=== PATIENT | male | born 1955 | race Caucasian/White ===

== ENCOUNTER 2023-01-23 11:22 | Outpatient (CLI) | payer MEDICARE, SELFPAY ==
[2023-01-23 12:06] LABS: Anion Gap 4 mmol/L (8-16); Blood Urea Nitrogen 26 mg/dL (9-20); Calcium 8.8 mg/dL (8.4-10.2); Carbon Dioxide 31 mmol/L (22-30); Chloride 101 mmol/L (98-107); Estimated Glomerular Filt Rate > 60; Glucose 110 mg/dL (65-110); Potassium 3.6 mmol/L (3.4-5.0); Sodium 136 mmol/L (137-145)
== END 2023-01-23 11:23 | disposition home or self-care (01) ==
PROVIDERS: Anesthesiology; Visit Provider Surgery
DX: Z01.812 Encounter for preprocedural laboratory examination (principal); K40.20 Bilateral inguinal hernia, without obstruction or gangrene, not specified as recurrent; Z79.899 Other long term (current) drug therapy
CPT/HCPCS: 36415; 80048; 86850; 86900; 86901

== ENCOUNTER 2023-01-31 00:18 | Day surgery (SDC) | payer MEDICARE, SELFPAY ==
[2023-01-22 14:54] VITALS: BMI 27.6
--- NOTE | 2023-01-22 15:13 | PC.NURSE ---
PRE-OP INSTRUCTIONS, PLEASE READ CAREFULLY Report to the Outpatient Waiting Room, entrance under the green pavilion located off [facility], at time _1030_ on date _01/31/23_. Planned Procedure Time: _1230_. Time changes happen often and if your time is changed the preop area will call you the afternoon before. - You and your visitor will be asked to self-screen and do not enter if you have any COVID symptoms. - A mask is optional within the hospital at this time. Patients may have clear liquids (water, carbonated beverages, clear teas, apple juice) until 3 hours prior to surgery (0930 AM) with a maximum of 20 ounces. - No food from midnight until time of surgery Take the following medications with a SIP of water the morning of surgery: _AMLODIPINE, TRELEGY INHALER, & FLONASE, PROAIR INHALER IF NEEDED_ DO NOT STOP ANY OF YOUR OTHER PRESCRIPTION MEDICATIONS PRIOR TO SURGERY ?EXCEPT THE FOLLOWING Medications to discontinue _MELOXICAM PER DR. STERN'S INSTRUCTIONS_ Medications to discontinue per ANESTHESIA - _MULTIVITAMIN, AREDS 3 DAYS PRIOR TO SURGERY, Date to take last dose 01/27/23_ Please no make-up, nail turkish, hairspray, perfume, deodorant, or body powder the day of surgery. No jewelry (including any body piercings) or valuables the day of surgery, leave them at home. Please take a shower or bath the night before, or the morning of, surgery with an antibacterial soap. Wear comfortable, loose fitting clothing. Children are encouraged to wear pajamas. - Jewelry must be removed prior to entering the operating room. Rings and piercings that are not removed may be cut off. - The hospital will not accept responsibility for valuables. - Please leave all valuables, including medications, at home the day of surgery. If you are going home after surgery, a licensed substitute bus driver must drive you home. - NO public transportation without another adult if you receive anesthesia. - We recommend that an adult stay with you for 24 hours following discharge. - We also recommend that you do not drive, make important decision, drink alcoholic beverages, or take any drugs that were not prescribed by your health care provider for at least 24 hours after your discharge time. Follow any additional instructions given to you from your surgeon. [facility] AM OF SURGERY If you or anyone in your household have experienced Covid symptoms in the past week, please notify your surgeon or the nurse liaison at the phone number below for possible testing. Telephone instructions given to _PATIENT_and asked if any additional questions and then verbalized understanding. Patient advised to call surgeon office or pre surgery nurse liaison [phone] if any additional questions.
[2023-01-31] VITALS (9 sets, daily range): BP systolic 146–173; BP diastolic 64–95; PULSE 73–85; RESP 12–20; TEMP 36.7–36.9; O2SAT 85–100
--- NOTE | 2023-01-31 13:41 | ECG_ITS ---
Measurements Intervals [place] Rate: 61 P: 61 [place]: 200 QRS: -9 QRSD: 91 T: 22 QT: 431 QTc: 436 Interpretive Statements SINUS RHYTHM NORMAL ELECTROCARDIOGRAM NO PREVIOUS ECG AVAILABLE FOR COMPARISON Electronically Signed On 01-31-2023 15:42:50 CDT by Nialy Lopez M.D.
[2023-01-31] MEDS: ACETAMINOPHEN 500 MG TABLET 1000 MG PO (14:00)
--- NOTE | 2023-01-31 14:01 | WPDANESEPPF ---
Anes - Initial Pre Proc Eval Procedure: Operation Date: 01/31/23 12:30 Proposed Procedures p Robotic Laparoscopic Bilateral Inguinal Hernia Repair - Edenilson Scherer MD Date/Time: 01/31/23 14:01 Surgeon: Edenilson Scherer MD Pre Op Diagnosis: recurrent left ing hernia and right ing hernia Patient Data Age: 67 Gender: M Height: 1.97 m Weight: 106.81 kg Allergies Allergy/AdvReac Type Severity Reaction Status Date / Time adhesive tape AdvReac SKIN Verified 01/31/23 14:06 IRRITATION Home Medications Medication Instructions Recorded Confirmed Type albuterol sulfate 90 mcg/actuation 1 inh inhalation Q4-6H PRN Wheezing 01/13/23 01/22/23 History breath activated powder inhaler,sensor (Proair Digihaler) amlodipine 2.5 mg tablet 2.5 mg PO DAILY 01/13/23 01/22/23 History fluticasone fur. 100 mcg-umeclid 1 inh inhalation DAILY 01/13/23 01/22/23 History 62.5 mcg-vilant 25 mcg inhalat.powder (Trelegy Ellipta) hydrochlorothiazide 12.5 mg tablet 12.5 mg PO DAILY 01/13/23 01/22/23 History loratadine 10 mg tablet 10 mg PO DAILY PRN SEASONAL 01/13/23 01/22/23 History ALLERGIES multivitamin 1 tablet PO DAILY 01/13/23 01/22/23 History olmesartan 40 mg tablet 40 mg PO DAILY 01/13/23 01/22/23 History omeprazole 40 mg capsule,delayed 40 mg PO DAILY PRN ACID REFLEX 01/13/23 01/22/23 History release vitamins A,C,P-xqwg-hsagol 4,296 1 cap PO BID 01/13/23 01/22/23 History mcg-226 mg-90 mg capsule (PreserVision AREDS) fluticasone propionate 50 1 spray intranasal DAILY 01/22/23 01/22/23 History mcg/actuation nasal spray,suspension (Flonase Allergy Relief) meloxicam 15 mg tablet 15 mg PO DAILY PRN Pain 01/22/23 01/22/23 History Patient hx anesthesia problems: none Family hx anesthesia problems: none Results Review: All pre-operative results and documents have been reviewed as part of the pre-operative evaluation. [facility] Past Medical History Medical History (Updated 01/13/23 @ 11:11 by Khalida Hall) Asthma GERD (gastroesophageal reflux disease) Hypertension Kidney stones Surgical History Surgical History History of eye surgery History of hernia repair inguinal History of knee surgery Family History Family History Other Diabetes mellitus Hypertension Social History Social History Smoking status: Never smoker Second hand tobacco smoke exposure: No Alcohol intake: current Alcohol use details: 3-4/MONTH Substance use: never Substance use type: does not use Living arrangements: other Additional living arrangements comments: PT LIVES WITH KI RINCON Spiritual care concerns: No Anes - Eval Final PreProcedure Day of Procedure 01/31/23 14:01 Patient weight: overweight Heart: regular rate and rhythm Lungs: clear to auscultation Airway: Mallampati scale class II Neurological: alert and oriented Last oral intake: >/= 8 hours ASA classification: III Emergent: no Anesthetic plan: proceed Anesthesia type and monitoring: general ETT and standard monitoring Results Review: All pre-operative results and documents have been reviewed as part of the pre-operative evaluation. Informed Consent: The patient's anesthetic plan and its attendant risks and benefits were discussed with the patient/family/POA. Questions were solicited and answers provided to the satisfaction of the patient/family/POA.
[2023-01-31] MEDS: KETOROLAC 15 MG/ML VIAL (*BKC) IV PUSH (15:00)
--- NOTE | 2023-01-31 15:50 | WPDHPUPDATE1 ---
History and Physical Update Update Date/Time: 01/31/23 15:50 History and Physical has been reviewed, including an updated exam of the patient. There are NO changes in the patient's condition. Risks, benefits, and alternatives have been discussed and questions answered. Patient agrees to proceed with procedure.
[2023-01-31] MEDS: ceFAZolin 2 GM/D5W 50 ML 2 GM/50 ML BAG IVPB (16:16)
[2023-01-31] MEDS: BUPIVACAINE/EPINEPHRINE 0.25% 10 ML VIAL 30 ML INFILTRATE (17:13)
[2023-01-31] MEDS: LACTATED RINGERS 1,000 ML 30 ML IV CONT ×2 (18:44)
--- NOTE | 2023-01-31 18:46 | W.PM.PROC2 ---
Procedure Note - Detailed Date of Procedure 01/31/23 Pre-op Diagnosis recurrent left ing hernia and right ing hernia Post-op Diagnosis Same Procedure Performed Robotic laparoscopic repair recurrent left inguinal hernia, robotic laparoscopic repair right inguinal hernia Surgeon Edenilson Scherer MD Identity Management Consultant Dionisio TRIPP Anesthesia General and MAC (0.5% Marcaine with epinephrine) Indications Patient is a 67-year-old man who has a history of a previous inguinal hernia repair, he thinks on the left side. He was noticing left groin pain and a bulge. But by the time he saw me in the office he was actually having pretty considerable right groin pain as well. Examination showed a large recurrent left inguinal hernia as well as a right inguinal hernia. He is taken to surgery now for robotic laparoscopic repair of recurrent left inguinal hernia and robotic repair of right inguinal hernia Findings The left inguinal hernia was a large indirect hernia. The right inguinal hernia actually had both a direct and an indirect hernia. Neither hernia had significant suggestion of previous repair but that is not too surprising as the previous repair was done open. Description of Procedure Patient was taken to surgery and induced into general anesthesia. The abdomen is prepped and draped. Trocars were placed about 20 cm cephalad to the pubis. Local anesthetic was infiltrated into the skin and the deeper subcutaneous and muscle prior to placement of each of the trocars. The initial trocar was placed using a 5 mm optical trocar in direct visualization. It was placed just to the right of midline. After we were intraperitoneal, we insufflated. Under direct visualization a right-sided 8 mm robotic trocar was then placed. Similarly an 8 mm left-sided robotic trocar was placed. Finally the 5 mm port was exchanged for an 8 mm robotic trocar as well. We then brought the robot into the field. The camera was docked and targeted. To the side arms were docked and instruments were placed. The surgeon went to the console. The surgery was started on the right inguinal region which clearly had more than 1 hernia. A peritoneal flap was created laterally. Dissection was carried out staying very close to the peritoneum on the lateral aspect. As we dissected to the inferior epigastric vessels, the dissection plane was a bit more superficial staying close to the rectus muscle. We dissected down to the urinary bladder and pubis. I then went back to the lateral dissection and continued that to below the pectinate line. I then went to the medial aspect and found a very large direct hernia. This was dissected and eventually reduced completely. Some fatty tissue in the femoral canal was likewise reduced. We continued dissection at least 2 cm posterior to the pubis. I then went lateral to the cord structures and dissected the indirect hernia free on the lateral aspect. I was then able to reduce the indirect hernia and carefully separate the hernia sac from the cord structures. Transversalis fascia attached to the hernia sac was carefully divided in the anterior aspect. There was essentially no bleeding. Visualization was excellent. Eventually the hernia sac was dissected completely free. We then continued the dissection and freed the peritoneum from the cord structures and well below the pectinate line and at least 2 cm below the pubis. The dissection was also continued over to the left rectus muscle which was exposed. I then turned my attention to the patient's left side. Similarly a peritoneal flap was started laterally and the dissection proceeded medially. The flap was dissected very close to the peritoneum laterally and deeper closer to the rectus muscle medially. The left side had a very large indirect hernia but only 1 hernia. I did not see any evidence of a direct or femoral hernia. After dissecting down and connecting to the pubis from the right-sided dissection, I then e
--- NOTE | 2023-01-31 19:13 | SUR.PHASEI ---
1909 - left eye tissue swollen. BARBER Rolle aware. stated that Dr. Scherer and Dr. Tilley aware as well.
[2023-01-31] MEDS: fentaNYL CITRATE INJ (*CRX) 100 MCG/2 ML VIAL 25 MCG IV PUSH (19:21)
[2023-01-31] MEDS: oxyCODONE HCL (*CRX) 5 MG TAB IR PO (19:51)
== END 2023-01-31 20:44 | disposition home or self-care (01) ==
PROVIDERS: Visit Provider Surgery
PROC: 8E0Y4CZ Robotic Assisted Procedure of Lower Extremity, Percutaneous Endoscopic Approach (ICD-10-PCS; CPT 49650; principal; 2023-01-31 12:30)
DX: K40.91 Unilateral inguinal hernia, without obstruction or gangrene, recurrent (principal); K40.90 Unilateral inguinal hernia, without obstruction or gangrene, not specified as recurrent; J45.909 Unspecified asthma, uncomplicated; I10 Essential (primary) hypertension; K21.9 Gastro-esophageal reflux disease without esophagitis; Z79.51 Long term (current) use of inhaled steroids
CPT/HCPCS: 49651; 49650; S2900; 36415; 80048; 86850; 86900; 86901; 93005; A9270; C1781; J0690; J1100; J1885; J2250; J2405; J2704; J2710; J3010; J7120

== ENCOUNTER 2023-02-17 11:16 | Outpatient (CLI) | payer MEDICARE, SELFPAY ==
--- NOTE | ~2023-02-17 | US_ITS ---
EXAMINATION: US soft tissue groin LT DATE: 02/17/2023 11:33 INDICATION: Evaluate seroma vs recurrent LIH . TECHNIQUE: Grayscale and Doppler ultrasound images of the left groin were obtained. COMPARISON: None. FINDINGS: The area of clinical concern was sonographically interrogated revealing a 2 x 2.5 cm inguin al hernia, containing mobile bowel. No other solid or cystic mass. No abnormal fluid collection. IMPRESSION: No evidence of seroma. Recurrent bowel containing inguinal hernia. Reviewed, dictated and finalized at location K.
== END 2023-02-17 11:17 ==
LOC: MICIMG 11:17
PROVIDERS: PCP Surgery; Visit Provider Surgery
DX: K40.91 Unilateral inguinal hernia, without obstruction or gangrene, recurrent (principal)
CPT/HCPCS: 76882

== ENCOUNTER 2023-02-24 12:21 | Outpatient (CLI) | payer MEDICARE, SELFPAY | END 2023-02-24 12:22 | disposition home or self-care (01) | PROVIDERS: Visit Provider Surgery | DX: Z01.818 Encounter for other preprocedural examination (principal); K40.91 Unilateral inguinal hernia, without obstruction or gangrene, recurrent | CPT/HCPCS: 36415; 86850; 86900; 86901 ==

== ENCOUNTER 2023-02-27 01:51 | Day surgery (SDC) | payer MEDICARE, SELFPAY ==
[2023-02-21 15:14] VITALS: BMI 26.4
--- NOTE | 2023-02-21 15:20 | PC.NURSE ---
PRE-OP INSTRUCTIONS, PLEASE READ CAREFULLY Report to the Outpatient Waiting Room, entrance under the green pavilion located off [facility], at time _1000_ on date _02/27/23_. Planned Procedure Time: _1200_. Time changes happen often and if your time is changed the preop area will call you the afternoon before. - You and your visitor will be asked to self-screen and do not enter if you have any COVID symptoms. - A mask is optional within the hospital at this time. Patients may have clear liquids (water, carbonated beverages, clear teas, apple juice) until 3 hours prior to surgery (0900 AM) with a maximum of 20 ounces. - No food from midnight until time of surgery Take the following medications with a SIP of water the morning of surgery: _AMLODIPINE, TRELEGY INHALER, & NASAL SPRAY, PROAIR INHALER IF NEEDED_ DO NOT STOP ANY OF YOUR OTHER PRESCRIPTION MEDICATIONS PRIOR TO SURGERY ?EXCEPT THE FOLLOWING Medications to discontinue per ANESTHESIA - _MULTIVITAMIN, AREDS 3 DAYS PRIOR TO SURGERY, Date to take last dose 02/23/23_ Please no make-up, nail uruguayan, hairspray, perfume, deodorant, or body powder the day of surgery. No jewelry (including any body piercings) or valuables the day of surgery, leave them at home. Please take a shower or bath the night before, or the morning of, surgery with an antibacterial soap. Wear comfortable, loose fitting clothing. - Jewelry must be removed prior to entering the operating room. Rings and piercings that are not removed may be cut off. - The hospital will not accept responsibility for valuables. - Please leave all valuables, including medications, at home the day of surgery. If you are going home after surgery, a licensed driver sales must drive you home. - NO public transportation without another adult if you receive anesthesia. - We recommend that an adult stay with you for 24 hours following discharge. - We also recommend that you do not drive, make important decision, drink alcoholic beverages, or take any drugs that were not prescribed by your health care provider for at least 24 hours after your discharge time. Follow any additional instructions given to you from your surgeon. If you or anyone in your household have experienced Covid symptoms in the past week, please notify your surgeon or the nurse liaison at the phone number below for possible testing. Telephone instructions given to _PATIENT_and asked if any additional questions and then verbalized understanding. Patient advised to call surgeon office or pre surgery nurse liaison [phone] if any additional questions.
[2023-02-27] MEDS: KETOROLAC 15 MG/ML VIAL (*BKC) IV PUSH (11:05)
[2023-02-27] MEDS: ACETAMINOPHEN 500 MG TABLET 1000 MG PO (11:05)
[2023-02-27 11:10] VITALS: BP 132/79; PULSE 56; RESP 14; TEMP 36.3; O2SAT 100
--- NOTE | 2023-02-27 11:31 | WPDANESEPPF ---
Anes - Initial Pre Proc Eval Procedure: Operation Date: 02/27/23 12:00 Proposed Procedures p Robotic Repair of Recurrent Left Inguinal Hernia - Edenilson Scherer MD Date/Time: 02/27/23 11:31 Surgeon: Edenilson Scherer MD Pre Op Diagnosis: recurrent left inguinal hernia Patient Data Age: 67 Gender: M Height: 1.97 m Weight: 101.5 kg Last Vital Signs Temp 97.3 F L 02/27/23 11:10 Pulse 56 L 02/27/23 11:10 Resp 14 02/27/23 11:10 BP 132/79 02/27/23 11:10 Pulse Ox 100 02/27/23 11:10 O2 Del Method Room Air 02/27/23 11:10 Allergies Allergy/AdvReac Type Severity Reaction Status Date / Time adhesive tape AdvReac SKIN Verified 02/27/23 11:19 IRRITATION Home Medications Medication Instructions Recorded Confirmed Type albuterol sulfate 90 mcg/actuation 1 inh inhalation Q4-6H PRN Wheezing 01/13/23 02/25/23 History breath activated powder inhaler,sensor (Proair Digihaler) amlodipine 2.5 mg tablet 2.5 mg PO DAILY 01/13/23 02/25/23 History fluticasone fur. 100 mcg-umeclid 1 inh inhalation DAILY 01/13/23 02/25/23 History 62.5 mcg-vilant 25 mcg inhalat.powder (Trelegy Ellipta) hydrochlorothiazide 12.5 mg tablet 12.5 mg PO DAILY 01/13/23 02/25/23 History loratadine 10 mg tablet 10 mg PO DAILY PRN SEASONAL 01/13/23 02/25/23 History ALLERGIES multivitamin 1 tablet PO DAILY 01/13/23 02/25/23 History olmesartan 40 mg tablet 40 mg PO DAILY 01/13/23 02/25/23 History omeprazole 40 mg capsule,delayed 40 mg PO DAILY PRN ACID REFLEX 01/13/23 02/25/23 History release vitamins A,C,T-tmzx-ajpyqn 4,296 1 cap PO BID 01/13/23 02/25/23 History mcg-226 mg-90 mg capsule (PreserVision AREDS) fluticasone propionate 50 1 spray intranasal DAILY 01/22/23 02/25/23 History mcg/actuation nasal spray,suspension (Flonase Allergy Relief) meloxicam 15 mg tablet 15 mg PO DAILY PRN Pain 01/22/23 02/25/23 History Patient hx anesthesia problems: none Family hx anesthesia problems: none Results Review: All pre-operative results and documents have been reviewed as part of the pre-operative evaluation. [facility] Past Medical History Medical History Asthma GERD (gastroesophageal reflux disease) Hypertension Kidney stones Surgical History Surgical History (Updated 02/24/23 @ 13:44 by Tami Goode) H/O inguinal hernia repair 01/31/2023 - robotic laparoscopic bilateral inguinal hernia repair History of eye surgery History of hernia repair inguinal History of knee surgery Family History Family History Other Diabetes mellitus Hypertension Social History Social History Smoking status: Never smoker Second hand tobacco smoke exposure: No Alcohol intake: current Alcohol use details: 3-4/MONTH Substance use: never Substance use type: does not use Living arrangements: other Additional living arrangements comments: LIVES WITH SIGNIFICANT OTHER DOREEN RINCON Spiritual care concerns: No Anes - Eval Final PreProcedure Day of Procedure 02/27/23 11:31 Patient weight: normal Heart: regular rate and rhythm Lungs: clear to auscultation Airway: Mallampati scale class II Neurological: alert and oriented Last oral intake: >/= 8 hours ASA classification: III Emergent: no Anesthetic plan: proceed Anesthesia type and monitoring: general ETT and standard monitoring Results Review: All pre-operative results and documents have been reviewed as part of the pre-operative evaluation. Informed Consent: The patient's anesthetic plan and its attendant risks and benefits were discussed with the patient/family/POA. Questions were solicited and answers provided to the satisfaction of the patient/family/POA.
--- NOTE | 2023-02-27 12:19 | WPDHPUPDATE1 ---
History and Physical Update Update Date/Time: 02/27/23 12:19 History and Physical has been reviewed, including an updated exam of the patient. There are NO changes in the patient's condition. Risks, benefits, and alternatives have been discussed and questions answered. Patient agrees to proceed with procedure.
[2023-02-27] MEDS: ceFAZolin 2 GM/D5W 50 ML 2 GM/50 ML BAG IVPB (12:33)
[2023-02-27] MEDS: BUPIVACAINE/EPINEPHRINE 0.25% 10 ML VIAL 30 ML INFILTRATE (13:39)
[2023-02-27 15:50] VITALS: BP 118/71; PULSE 97; RESP 16; TEMP 36.7; O2SAT 100
[2023-02-27] MEDS: LACTATED RINGERS 1,000 ML 30 ML IV CONT ×3 (15:50→16:06)
[2023-02-27 16:05] VITALS: BP 115/72; PULSE 88; RESP 12; O2SAT 100
[2023-02-27 16:20] VITALS: BP 128/64; PULSE 81; RESP 16; O2SAT 100
[2023-02-27 16:25] VITALS: BP 133/60; PULSE 84; RESP 16
[2023-02-27 16:55] VITALS: BP 142/76; PULSE 66; RESP 16
[2023-02-27] MEDS: oxyCODONE HCL (*CRX) 5 MG TAB IR PO (16:59)
--- NOTE | 2023-02-27 17:06 | W.PM.PROC2 ---
Procedure Note - Detailed Date of Procedure 02/27/23 Pre-op Diagnosis recurrent left inguinal hernia Post-op Diagnosis Same Procedure Performed Repair recurrent left inguinal hernia with 12 x 17 cm 3D max mid left mesh Surgeon Edenilson Scherer MD Feed Mill Supervisor Speedy TRIPP Anesthesia General and Local (0.5% Marcaine with epinephrine) Indications Patient underwent bilateral robotic laparoscopic inguinal hernia repair with 3DMax mesh on 01/31/2023. He did well following surgery but 1 week after the surgery he slipped and fell reporting he did the splits. The evening after his fall, he started noticing a bulge and discomfort in the left groin. He was seen in the office and a bulge noted. Ultrasound of this showed a recurrent left inguinal hernia. After discussion, he is taken back to surgery for robotic laparoscopic repair of this recurrent hernia but possibly with conversion to open repair. Findings The mesh slipped medially and cephalad and the recurrence was posterolateral being an indirect recurrence containing sigmoid colon. The right side showed no evidence of recurrent hernia Description of Procedure Patient was taken to surgery and induced into general anesthesia. The abdomen was prepped and draped including the left groin area. Trocars were placed in the usual fashion using initially and applied Medical optical trocar. We placed the trocars in the same location that they had been placed at the original surgery less than 1 month ago 01/31/2023. Robotic trocars were in position and the robot was brought into the field. The camera port was docked. The camera was targeted. We then docked the remaining 2 ports and placed the appropriate instruments. The surgeon went to the console. The previous peritoneal closure was evident. It was heavily scarred and I went just posterior to this to re-enter the peritoneum and create a flap from anterior to posterior. This worked fairly well laterally but as we got towards the hernia defect, the peritoneum was densely adherent to the mesh and creating the peritoneal flap here was not able to be performed. I did proceed additionally medial and created a peritoneal flap in the area of the median umbilical ligament and slightly medial to that. I was able to gently tease the rectus muscle from the mesh and eventually expose the pubis and Robert's ligament. There was bleeding associated with dissecting venous structures of the inferior epigastric pedicle from the mesh. These veins were cauterized with the bipolar. In general the dissection was considerably more bloody than the initial surgery. The mesh was dissected anteriorly on the lateral aspect and then eventually dissected off the abdominal wall posterior to the mesh. The recurrence had come lateral and posterior as the mesh seemed to be riding higher than it had been placed. In the area of the spermatic cord vessels, I divided the mesh so that the lateral portion of the mesh could be removed from the field. It was placed in the abdomen in a location I could access readily later in the surgery. I then began dissecting the mesh medially and dissected it off the pubis and the structures posterior to the pubis and near the cord structures. Care was taken to avoid the external iliac vein. I then removed the majority of the rest of the mesh although some additional pieces of mesh were removed separately as they were closer to the cord structures and the smaller pieces were carefully dissected away using primarily cautery and sharp dissection. Eventually, all the mesh was removed. I then turned my attention to the hernia sac. I reduced the hernia sac and carefully dissected it from the cord structures. Cord structures were dissected medially while the sac was retracted laterally. Was a large sac and eventually I came to the end of it. Using the cautery I was able to divide the sac and remnants of the transversalis fascia such that the peritoneum and hernia sac c
== END 2023-02-27 17:15 | disposition home or self-care (01) ==
PROVIDERS: Visit Provider Surgery
PROC: 8E0Y4CZ Robotic Assisted Procedure of Lower Extremity, Percutaneous Endoscopic Approach (ICD-10-PCS; CPT 49650; principal; 2023-02-27 12:00)
DX: K40.91 Unilateral inguinal hernia, without obstruction or gangrene, recurrent (principal); W19.XXXA Unspecified fall, initial encounter; K21.9 Gastro-esophageal reflux disease without esophagitis; I10 Essential (primary) hypertension
CPT/HCPCS: 49651; 36415; 86850; 86900; 86901; A9270; C1781; J0690; J1100; J1170; J1200; J1885; J2250; J2370; J2405; J2704; J3010; J7120

== ENCOUNTER 2023-02-28 17:15 | Emergency (ER) | payer MEDICARE, SELFPAY ==
--- NOTE | ~2023-02-28 | CT_ITS ---
EXAMINATION: CT abdomen pelvis w con DATE: 02/28/2023 19:54 INDICATION: Postoperative pain and swelling TECHNIQUE: Computed tomography (CT) of the abdomen and pelvis was performed with 100 mL Omnipaque-350 intravenous contrast. Automated exposure control and iterative reconstruction technique were employe d. The dose-length product was 1354.11 mGy-cm. COMPARISON: None FINDINGS: Elevation the right hemidiaphragm. Fine reticulonodular opacities in the right middle and bilateral l ower lobes. There is volume loss in the bilateral lower lobes, right greater than left. No pleural ef fusion. Heart size is normal. No pericardial effusion. Liver, gallbladder, bilateral adrenal glands and right kidney are normal. 7 mm cyst in the left kidne y. There is moderate atrophy of the pancreas with a few scattered tiny calcifications at the tail of pancreas which likely represents sequela of chronic pancreatitis. A few small splenic calcific lesion s consistent with old granulomatous disease. Moderate sigmoid predominant diverticulosis without lucy cent inflammatory stranding to suggest diverticulitis. Small bowel and appendix are normal. There are couple diverticula along the posterior bladder suggestive of chronic outlet obstruction potentially related to prior prostatomegaly with change of transurethral prostatectomy. There is stranding in the extraperitoneal fat situated between the bladder, the left external iliac v essels in the left inguinal canal likely related to prior surgery. Small lobular high attenuation hem atomas extending along the left inguinal canal. There is small amount of gas within the inguinal alysha l as well as extensive soft tissue gas along the nondependent pelvic, abdominal and lower chest wall likely related to recent laparoscopy with increased density and stranding 1 3 likely laparoscopy port s at the upper abdominal wall. There is a minimal amount of additional likely postoperative gas in th e paracardial fat as well as in the retroperitoneal fat along the distal esophagus. No free intraperi toneal gas in the more caudal abdomen or pelvis. No abscess. Moderate to severe lower thoracic and mi ld lumbar spondylosis. IMPRESSION: 1. . Postoperative hematoma along the left inguinal canal, with extensive soft tissue gas predominant ly in the abdominal and pelvic wall. No abscess or free intraperitoneal gas. 2. Reticulonodular opacities at the bilateral lung bases predominantly in the lower lobes where there is corresponding volume loss which could be due to either acute or chronic infectious or inflammator y process and/or chronic interstitial lung disease. 3. Diverticulosis. Reviewed, dictated and finalized at location A. IMPRESSION: 1. . Postoperative hematoma along the left inguinal canal, with extensive soft tissue gas predominantly in the abdominal and pelvic wall. No abscess or free i ntraperitoneal gas. 2. Reticulonodular opacities at the bilateral lung bases predominantly in the l ower lobes where there is corresponding volume loss which could be due to eithe r acute or chronic infectious or inflammatory process and/or chronic interstiti al lung disease. 3. Diverticulosis.
[2023-02-28 17:27] VITALS: BP 141/77; PULSE 84; RESP 18; TEMP 36.9; O2SAT 98
[2023-02-28 17:50] VITALS: BP 134/73; PULSE 79; RESP 18; O2SAT 100
[2023-02-28 18:15] VITALS: BP 137/68; PULSE 75; RESP 18; O2SAT 99
[2023-02-28] MEDS: SODIUM CHLORIDE 0.9% IV 1,000 ML 150 ML IV CONT (18:30)
[2023-02-28 18:39] LABS: Basophils Absolute Auto 0.1 K/mm3 (0.0-0.1); Basophils Percent Auto 0.5 % (0.2-1.2); Eosinophils Absolute Auto 0.6 K/mm3 (0-0.3); Eosinophils Percent Auto 4.7 % (0-4.4); Hematocrit 36.2 % (42.0-52.0); Hemoglobin 11.8 g/dL (14.0-18.0); Immature Granulocyte Absolute 0.05 K/mm3 (0.00-0.031); Immature Granulocyte Percent A 0.4 % (0-0.5); Lymphocytes Absolute Auto 1.29 K/mm3 (0.9-3.2); Lymphocytes Percent Auto 9.8 % (18.3-44.2); Mean Corpuscular HGB Conc 32.6 g/dl (32-36); Monocytes Percent Auto 7.6 % (2.6-8.5); Neutrophils Absolute Auto 10.1 K/mm3 (1.3-6.7); Platelet Count Result 166 k/mm3 (150-375); Red Blood Count 3.81 M/mm3 (4.6-6.20); Red Cell Distribution Width 13.3 % (11.5-14.5); White Blood Count 13.1 K/mm3 (4.5-10.0)
[2023-02-28 18:50] LABS: Alanine Aminotransferase 18 U/L (6-50); Albumin Level 3.6 g/dL (3.5-5.1); Alkaline Phosphatase 77 U/L (38-126); Anion Gap 5 mmol/L (8-16); Aspartate Amino Transferase 23 U/L (17-59); Bilirubin,Total 0.4 mg/dL (0.2-1.3); Blood Urea Nitrogen 20 mg/dL (9-20); Calcium 8.5 mg/dL (8.4-10.2); Carbon Dioxide 31 mmol/L (22-30); Chloride 100 mmol/L (98-107); Estimated CRCL calculation 87 ml/min; Estimated Glomerular Filt Rate > 60; Glucose 134 mg/dL (65-110); Potassium 3.4 mmol/L (3.4-5.0); Sodium 136 mmol/L (137-145)
[2023-02-28 19:11] LABS: INR 1.1
--- NOTE | 2023-02-28 19:15 | PC.NURSE ---
Report given to REJI Olmstead
--- NOTE | 2023-02-28 21:12 | ED.ABDPAIN ---
HPI - Abdominal Pain General Chief Complaint: Abdominal Pain Stated Complaint: swelling to abd after hernia surg yest. Time Seen by Provider: 02/28/23 17:35 Source: patient and family Mode of arrival: ambulatory Limitations: no limitations History of Present Illness HPI narrative: 68-year-old with s/p inguinal hernia repair x2 here with complaints of pain and swelling at the incisional site, patient noticed a large swelling on the right side of the abdomen where his sensation was. He denied any nausea or vomiting. He states he has been taking his pain medication however this afternoon his pain got worse. Patient states he called Dr. Rosas who recommended to come to the ER for CAT scan MD elicited complaint: abdominal pain Pertinent past history: none Onset (ago): day(s) (1) Pain Consistency: constant Location: RLQ Severity: moderate Quality: aching Radiation: none Migration to: no migration Exacerbating factors: nothing Relieving factors: nothing Context: confirms recent surgery/procedure Associated symptoms: denies other symptoms Related Data Home Medications Medication Instructions Recorded Confirmed albuterol sulfate 90 mcg/actuation 1 inh inhalation Q4-6H PRN Wheezing 01/13/23 02/25/23 breath activated powder inhaler,sensor (Proair Digihaler) amlodipine 2.5 mg tablet 2.5 mg PO DAILY 01/13/23 02/25/23 fluticasone fur. 100 mcg-umeclid 1 inh inhalation DAILY 01/13/23 02/25/23 62.5 mcg-vilant 25 mcg inhalat.powder (Trelegy Ellipta) hydrochlorothiazide 12.5 mg tablet 12.5 mg PO DAILY 01/13/23 02/25/23 loratadine 10 mg tablet 10 mg PO DAILY PRN SEASONAL 01/13/23 02/25/23 ALLERGIES multivitamin 1 tablet PO DAILY 01/13/23 02/25/23 olmesartan 40 mg tablet 40 mg PO DAILY 01/13/23 02/25/23 omeprazole 40 mg capsule,delayed 40 mg PO DAILY PRN ACID REFLEX 01/13/23 02/25/23 release vitamins A,C,N-ieok-qizyyj 4,296 1 cap PO BID 01/13/23 02/25/23 mcg-226 mg-90 mg capsule (PreserVision AREDS) fluticasone propionate 50 1 spray intranasal DAILY 01/22/23 02/25/23 mcg/actuation nasal spray,suspension (Flonase Allergy Relief) meloxicam 15 mg tablet 15 mg PO DAILY PRN Pain 01/22/23 02/25/23 Allergies Allergy/AdvReac Type Severity Reaction Status Date / Time adhesive tape AdvReac SKIN Verified 02/28/23 17:53 IRRITATION Review of Systems Review of Systems: All systems reviewed & are unremarkable except as noted in HPI and below Constitutional: Constitutional: Reports no additional constitutional complaints Eyes: Eyes: Reports no additional eye complaints ENT: Reports system reviewed and no additional complaints, except as documented Cardiovascular: Cardiovascular: Reports no additional cardiovascular complaints Respiratory: Respiratory: Reports no additional respiratory complaints Gastrointestinal: Gastrointestinal: Reports as per HPI Musculoskeletal: Musculoskeletal: Reports no additional musculoskeletal complaints Integumentary/Breasts: Skin/Breast: Reports system reviewed and no additional complaints, except as docu Neurologic: Reports system reviewed and no additional complaints, except as documented PMFSH Past Medical History Medical History Asthma GERD (gastroesophageal reflux disease) Hypertension Kidney stones Surgical History Surgical History H/O inguinal hernia repair 01/31/2023 - robotic laparoscopic bilateral inguinal hernia repair History of eye surgery History of hernia repair inguinal History of knee surgery Family History Family History Other Diabetes mellitus Hypertension Social History Social History Smoking status: Never smoker Second hand tobacco smoke exposure: No Alcohol intake: current Alcohol use details: 3-4/MONTH [facility]
[2023-02-28 21:25] VITALS: BP 156/86; PULSE 71; RESP 16; O2SAT 100
--- NOTE | 2023-04-01 10:09 | PC.NURSE ---
LATE ENTRY This note is being entered to document information to the patient's record. The following information was omitted on [02/28/23], by []. Normal saline Stopped at 2100. 400ccNS infused
== END 2023-02-28 21:26 | disposition home or self-care (01) ==
PROVIDERS: Emergency Provider Family Medicine; PCP Surgery
DX: K91.870 Postprocedural hematoma of a digestive system organ or structure following a digestive system procedure (principal); R10.31 Right lower quadrant pain; J45.909 Unspecified asthma, uncomplicated; I10 Essential (primary) hypertension; K21.9 Gastro-esophageal reflux disease without esophagitis; Z87.442 Personal history of urinary calculi; R91.8 Other nonspecific abnormal finding of lung field; K57.90 Diverticulosis of intestine, part unspecified, without perforation or abscess without bleeding
CPT/HCPCS: 36415; 74177; 80053; 85025; 85610; 96360; 96361; 99284; J7030; Q9967

== ENCOUNTER 2023-03-03 12:32 | Emergency (ER) | payer MEDICARE, SELFPAY ==
[2023-03-03 12:40] VITALS: BP 155/99; PULSE 100; RESP 18; TEMP 36.8; O2SAT 98
[2023-03-03 13:12] LABS: Basophils Absolute Auto 0.1 K/mm3 (0.0-0.1); Basophils Percent Auto 0.3 % (0.2-1.2); Eosinophils Absolute Auto 0.3 K/mm3 (0-0.3); Eosinophils Percent Auto 1.7 % (0-4.4); Hematocrit 41.9 % (42.0-52.0); Hemoglobin 14.2 g/dL (14.0-18.0); Immature Granulocyte Absolute 0.06 K/mm3 (0.00-0.031); Immature Granulocyte Percent A 0.4 % (0-0.5); Lymphocytes Absolute Auto 0.79 K/mm3 (0.9-3.2); Mean Corpuscular HGB Conc 33.9 g/dl (32-36); Mean Corpuscular Hemoglobin 30.9 pg (26-34); Mean Corpuscular Volume 91.3 fl (80-100); Mean Platelet Volume 11.4 fl (7.4-10.4); Monocytes Absolute Auto 0.9 K/mm3 (0.1-0.6); Monocytes Percent Auto 5.5 % (2.6-8.5); Neutrophils Absolute Auto 13.7 K/mm3 (1.3-6.7); Neutrophils Percent Auto 87.1 % (45.5-73.1); Platelet Count Result 223 k/mm3 (150-375); Red Blood Count 4.59 M/mm3 (4.6-6.20); Red Cell Distribution Width 13.2 % (11.5-14.5); White Blood Count 15.7 K/mm3 (4.5-10.0)
[2023-03-03 13:20] LABS: Appearance Urine Turbid (Clear); Bacteria Urine None Seen /hpf; Bilirubin Urine Negative (Negative); Blood Urine Negative (Negative); Color Urine Yellow (Yellow); Glucose Urine UA Negative (Negative); Ketones Urine 2+ mg/dL (Negative); Leukocyte Esterase Ur Negative LEU/UL (Negative); Nitrate Urine Negative (Negative); Non Pathogenic Casts 0-2; Protein Urine Trace mg/dL (Negative); RBC Urine 0-2 /hpf (0-2); Specific Grav Ur 1.017 (1.001-1.035); Squamous Epithelial Cell Urine None seen /hpf (Few); WBC Urine 0-5 /hpf; pH Urine 8.5 (5.0-9.0)
[2023-03-03 13:30] LABS: Add Urine Microscopic? YES
[2023-03-03 13:36] LABS: Alanine Aminotransferase 16 U/L (6-50); Albumin Level 4.1 g/dL (3.5-5.1); Alkaline Phosphatase 92 U/L (38-126); Anion Gap 6 mmol/L (8-16); Aspartate Amino Transferase 24 U/L (17-59); Bilirubin,Total 1.3 mg/dL (0.2-1.3); Blood Urea Nitrogen 18 mg/dL (9-20); Calcium 9.1 mg/dL (8.4-10.2); Carbon Dioxide 33 mmol/L (22-30); Chloride 96 mmol/L (98-107); Estimated CRCL calculation 126 ml/min; Estimated Glomerular Filt Rate > 60; Glucose 139 mg/dL (65-110); Lipase 75 U/L (23-300); Potassium 3.3 mmol/L (3.4-5.0); Sodium 135 mmol/L (137-145)
--- NOTE | 2023-03-03 15:36 | PC.NURSE ---
Pt to intake desk and states he is going to go. Pt taken to wifes car by wheelchair
== END 2023-03-03 16:16 | disposition left against medical advice (07) ==
LOC: ANHED 15:44
PROVIDERS: Emergency Provider Emergency Medicine; PCP Surgery
DX: R10.9 Unspecified abdominal pain (principal)
CPT/HCPCS: 36415; 80053; 81001; 83690; 85025; 99199

== ENCOUNTER 2023-03-04 02:42 | Inpatient (IN) | payer MEDICARE, SELFPAY ==
[2023-03-04] VITALS (23 sets, daily range): BP systolic 120–163; BP diastolic 61–86; PULSE 64–117; RESP 10–20; TEMP 36.4–37.2; O2SAT 95–100; BMI 27.1
--- NOTE | ~2023-03-04 | CT_ITS ---
Clinical Indication: Fever, abdominal pain CT Scan of the Chest, Abdomen, and Pelvis without Contrast: Technique: Contiguous sections were acquired throughout the chest, abdomen, and pelvis without IV con trast administration. Dose reduction technique was used on this scan by utilizing automated exposure control and iterative reconstruction technique. The dose-length product (DLP) was 1943.13 mGy-cm. Comparison: 03/04/2023 Findings: There is no evidence of any significant mediastinal, hilar or axillary lymphadenopathy. The mediastin al soft tissues and vascular structures appear normal. No pericardial effusion. Fat-containing hiatal hernia present. There are small bilateral pleural effusions. There is extensive bibasilar consolidation with hyperden se material in the lung bases. There is some tree-in-bud opacity in the right middle lobe. The liver, spleen, pancreas, adrenals and kidneys are within normal limits. Gallbladder is distended, otherwise unremarkable. No evidence of aortic aneurysm. No lymphadenopathy. Multiple dilated small bowel loops are present. Distal small bowel and large bowel are decompressed. Transition point probably present in the right mid abdomen. There is extensive sigmoid diverticulosis . Small to small moderate abdominopelvic ascites is present. Urinary bladder is collapsed around a Lowe catheter, with air within it. Prostate gland and seminal vesicles are unremarkable. Stable hematoma in the left inguinal canal region. Stable infiltrative amanda nges in the left lower quadrant region, presumably related to recent hernia repair. Impression: Extensive bibasilar consolidation with some hyperdense material as well as tree-in-bud opacities in t he right middle lobe. Findings could reflect atelectasis and prior aspiration. Aspiration pneumonia i s an alternative consideration. Tree-in-bud opacities right middle lobe suggest small airways infecti ous process. Probable persistent small bowel obstruction, transition point in the right mid abdomen, near the prev iously identified hernia. No recurrent hernia in this location seen. Stable presumed postsurgical changes related to left inguinal hernia repair with stable left inguinal canal hematoma. Small to small moderate abdominopelvic ascites. Small bilateral pleural effusions. Fat-containing hiatal hernia. Reviewed, dictated and finalized at location M. Impression: Extensive bibasilar consolidation with some hyperdense material as well as tree -in-bud opacities in the right middle lobe. Findings could reflect atelectasis and prior aspiration. Aspiration pneumonia is an alternative consideration. [place] Jay e-in-bud opacities right middle lobe suggest small airways infectious process. Probable persistent small bowel obstruction, transition point in the right mid abdomen, near the previously identified hernia. No recurrent hernia in this loc ation seen. Stable presumed postsurgical changes related to left inguinal hernia repair wit h stable left inguinal canal hematoma. Small to small moderate abdominopelvic ascites. Small bilateral pleural effusions. Fat-containing hiatal hernia.
--- NOTE | ~2023-03-04 | XR_ITS ---
EXAMINATION: XR abdomen obstructive series DATE: 03/09/2023 08:25 INDICATION: Small bowel obstruction. TECHNIQUE: Upright and supine views of the abdomen on 3 radiographs were obtained. COMPARISON: Small bowel series 03/08/2023, CT abdomen and pelvis 03/07/2023 FINDINGS: There are multiple dilated loops of small bowel. The colon is normal in caliber. There is o ral contrast in stomach, small bowel, and colon. No free intraperitoneal gas. IMPRESSION: 1. Persistently dilated small bowel with slow passage of contrast, likely adynamic ileus. Reviewed, dictated and finalized at location A. IMPRESSION: 1. Persistently dilated small bowel with slow passage of contrast, likely adyna srinivasan ileus.
--- NOTE | ~2023-03-04 | XR_ITS ---
EXAMINATION: XR abdomen/kub 1V DATE: 03/14/2023 08:37 INDICATION: Abdominal pain. TECHNIQUE: A supine view of the abdomen was obtained. COMPARISON: Abdomen radiographs 03/10/2023 FINDINGS: The upper abdomen is excluded. There are no dilated loops of bowel. There is a small volume of stool in the colon. IMPRESSION: 1. Nonobstructive bowel gas pattern. Reviewed, dictated and finalized at location A.
--- NOTE | ~2023-03-04 | US_ITS ---
EXAMINATION: US venous doppler [facility] DATE: 03/07/2023 18:17 INDICATION: Abdominal pain. Atrial fibrillation. TECHNIQUE: Grayscale ultrasound images without and with compression and Doppler ultrasound images of the bilateral lower extremity veins were obtained. COMPARISON: None. FINDINGS: The visualized portions of right common femoral vein, profunda (deep) femoral vein, femoral vein, pop liteal vein, and greater saphenous vein outflow are patent. There is thrombus in right gastrocnemius, posterior tibial, and peroneal veins. The visualized portions of left common femoral vein, profunda femoral vein, femoral vein, popliteal v ein, peroneal veins, posterior tibial veins, and greater saphenous vein outflow are patent. IMPRESSION: 1. Deep vein thrombosis involving right gastrocnemius, posterior tibial, and peroneal veins. I spring d this result to Thao Rayo. Reviewed, dictated and finalized at location E. IMPRESSION: 1. Deep vein thrombosis involving right gastrocnemius, posterior tibial, and p eroneal veins. I called this result to Thao Rayo.
--- NOTE | ~2023-03-04 | XR_ITS ---
EXAMINATION: XR small bowel follow through DATE: 03/08/2023 21:21 INDICATION: Small bowel obstruction TECHNIQUE: [employer] radiograph(s) of the abdomen was/were obtained. Oral contrast was administered, and sequential radiographs of the abdomen were obtained until oral contrast was noted to be in the proxi mal colon. COMPARISON: None. FINDINGS: Multiple dilated gas-filled loops of bowel are seen throughout the abdomen on the ese teacher images. There is slow progression of contrast through these dilated bowel loops which by 5 hours has reached some more normal caliber loops of small bowel in the right abdomen has not yet reached the colon. IMPRESSION: 1. Slow progression of contrast throughout multiple dilated loops of small bowel reaching the ileum b ut not yet the colon by 5 hours which remains equivocal for bowel obstruction versus ileus. Reviewed, dictated and finalized at location A. IMPRESSION: 1. Slow progression of contrast throughout multiple dilated loops of small abhay l reaching the ileum but not yet the colon by 5 hours which remains equivocal f or bowel obstruction versus ileus.
--- NOTE | ~2023-03-04 | CT_ITS ---
EXAMINATION: CT abdomen pelvis wo con DATE: 03/14/2023 14:26 INDICATION: Flank and left lower quadrant pain TECHNIQUE: Computed tomography (CT) of the abdomen and pelvis was performed without intravenous contr ast. The dose-length product (DLP) was 1246.74 mGy-cm. Automated exposure control and iterative recon struction technique were employed. COMPARISON: 03/07/2023 FINDINGS: There are persistent airspace opacities of the lower lobes with areas of hyperattenuating m aterial again seen in the lower lobes. There are tree-in-bud opacities of the right middle lobe witho ut significant change. Small pleural effusions are present. The heart size is normal. Punctate calcif ications in an otherwise normal spleen likely represent healed granulomatous disease. There is a smal l fat-containing hiatal hernia. The liver, pancreas, gallbladder, and adrenal glands are normal. A sm all amount of contrast material is present in the renal collecting systems and in the urinary bladder . There are multiple diverticula of the urinary bladder. Again seen is a [id number] volume of pelvic ascites without significant change. A small volume of ascites in the right pericolic gutter is decreased. No free intraperitoneal gas or evidence of bowel obstruction. Colonic diverticulosis is p resent without evidence of diverticulitis. There is a hematoma/seroma of the left inguinal canal with out significant interval change. No pathologically enlarged abdominal or pelvic lymph nodes are ident ified. No free intraperitoneal gas or evidence of bowel obstruction. There is persistent inflammatory change in the left pelvis, likely due to hiatal hernia repair. Diffuse anasarca is noted. The append ix is normal. There is moderate lumbar spondylosis. IMPRESSION: 1. Prior dilated small bowel result. 2. Small volume of pelvic ascites without significant change. 3. Hematoma/seroma of the left inguinal canal, stable and likely postoperative. 4. Bibasilar airspace opacities with some hyperattenuating material seen in the lower lobes, consiste nt with pneumonia, possible aspiration. Stable tree-in-bud opacities of the right middle lobe are con sistent with infection/inflammation. Reviewed, dictated and finalized at location B. IMPRESSION: 1. Prior dilated small bowel result. 2. Small volume of pelvic ascites without significant change. 3. Hematoma/seroma of the left inguinal canal, stable and likely postoperative. 4. Bibasilar airspace opacities with some hyperattenuating material seen in the lower lobes, consistent with pneumonia, possible aspiration. Stable tree-in-bu d opacities of the right middle lobe are consistent with infection/inflammation .
--- NOTE | ~2023-03-04 | XR_ITS ---
EXAMINATION: XR abdomen obstructive series DATE: 03/10/2023 11:29 INDICATION: Abdominal pain. TECHNIQUE: Upright and supine views of the abdomen were obtained. COMPARISON: Abdomen radiographs 03/09/2023 FINDINGS: There are multiple dilated loops of small bowel. There is contrast in the colon, which is d ecompressed. No free intraperitoneal gas. IMPRESSION: 1. Persistently dilated small bowel, likely adynamic ileus. Reviewed, dictated and finalized at location A.
--- NOTE | ~2023-03-04 | XR_ITS ---
EXAMINATION: XR chest 1V portable INDICATION: Hypoxia TECHNIQUE: Portable AP chest at 0019 hours COMPARISON: None available FINDINGS: The lung volumes are low. There are small pleural effusions. Diffuse interstitial and airsp moira opacities are present. Cardiomegaly is noted. There are more focal airspace opacities of the lung bases. There is no pneumothorax. IMPRESSION: 1. Diffuse lung disease, consistent with pneumonia versus pulmonary edema. 2. Small pleural effusions with bibasilar airspace opacities, atelectasis versus pneumonia. Reviewed, dictated and finalized at location A. IMPRESSION: 1. Diffuse lung disease, consistent with pneumonia versus pulmonary edema. 2. Small pleural effusions with bibasilar airspace opacities, atelectasis versu s pneumonia.
--- NOTE | ~2023-03-04 | US_ITS ---
EXAMINATION: US renal BI DATE: 03/05/2023 19:48 INDICATION: KATHERINE TECHNIQUE: Multiple grayscale and Doppler ultrasound images of the kidneys were obtained. COMPARISON: None. FINDINGS: The right kidney measures 10.3 x 5.4 x 5.6 cm. The left kidney measures 11.6 x 6.8 x 5.8 cm. The kidn eys demonstrate normal parenchymal echogenicity. There is no hydronephrosis. The bladder is decompres sed by Lowe catheter and therefore incompletely evaluated. Incidental note of mild free pelvic fluid . IMPRESSION: Bladder decompressed by Lowe and therefore not well evaluated. Mild free pelvic fluid. Otherwise unr emarkable renal sonogram findings. Reviewed, dictated and finalized at location K. IMPRESSION: Bladder decompressed by Lowe and therefore not well evaluated. Mild free pelvi c fluid. Otherwise unremarkable renal sonogram findings.
--- NOTE | ~2023-03-04 | CT_ITS ---
EXAMINATION: CTA chest PE protocol DATE: 03/13/2023 14:48 INDICATION: Chest pain. Shortness of breath. TECHNIQUE: Computed tomography angiography (CTA) of the chest was performed with 100 mL Omnipaque-350 intravenous contrast timed to evaluate the pulmonary arteries. Coronal maximum intensity projection 3D-reconstructions were created by the technologist. Automated exposure control and iterative reconst ruction technique were employed. The dose-length product was 701.25 mGy-cm. COMPARISON: Chest CT 03/07/2023 FINDINGS: The lung volumes are small. There is mild scarring at the lung apices. There are small pleu ral effusions. There are dependent airspace and groundglass opacities bilaterally, likely atelectasis and chronic lung disease. There is septal thickening in the lungs with an inferior predominance asso ciated with parenchymal calcifications. Cardiomegaly is noted. No pericardial effusion. There is no p ulmonary embolus. Calcified left hilar and mediastinal lymph nodes are consistent with old granulomat ous disease. The gallbladder is distended. Calcifications in the spleen are consistent with old granu lomatous disease. There is trace ascites. There is a small sliding hiatal hernia containing fat. Ther e is mild thoracic spondylosis. There is mild chronic anterior wedging of multiple vertebral bodies. IMPRESSION: 1. No pulmonary embolus. 2. Chronic interstitial lung disease in a pattern of usual interstitial pneumonia (UIP). 3. Small pleural effusions. 4. Gallbladder distention, which may be secondary to fasting. Correlate with physical exam to exclude acute cholecystitis. Reviewed, dictated and finalized at location A. IMPRESSION: 1. No pulmonary embolus. 2. Chronic interstitial lung disease in a pattern of usual interstitial pneumon ia (UIP). 3. Small pleural effusions. 4. Gallbladder distention, which may be secondary to fasting. Correlate with ph ysical exam to exclude acute cholecystitis.
--- NOTE | ~2023-03-04 | CT_ITS ---
EXAMINATION: CT abdomen pelvis w con DATE: 03/04/2023 04:03 INDICATION: Epigastric abdominal pain. Nausea and vomiting. TECHNIQUE: Computed tomography (CT) of the abdomen and pelvis was performed with 100 mL Omnipaque 350 intravenous contrast. Automated exposure control and iterative reconstruction technique were employe d. The dose-length product was 1226.33 mGy-cm. COMPARISON: CT abdomen and pelvis 02/28/2023 FINDINGS: The visualized portions of the lung bases demonstrate nodular septal thickening with calcif ications bilaterally, consistent with chronic interstitial lung disease. No pleural effusion. The hea rt size is normal. No pericardial effusion. There is a small sliding hiatal hernia. Left hepatic lobe is small. Calcifications in the spleen are consistent with old granulomatous disease. The gallbladde r is normal. There are calcifications of the pancreas, consistent with chronic pancreatitis. The adre nal glands and right kidney are normal. There is a 10 mm cyst in left kidney. There is a right-sided ventral hernia containing a loop of small bowel. Small bowel is fluid-filled and dilated proximal to the hernia. There are changes of left inguinal hernia repair. Again seen is hematoma in the area of t he inguinal hernia repair. There is gas in the body wall, consistent with recent surgery. There is fa t stranding in the body wall, consistent with inflammation and edema. There is a small volume of asci alexandre. There are no pathologically enlarged lymph nodes. There is severe thoracic spondylosis and moder ate lumbar spondylosis. IMPRESSION: 1. Small bowel obstruction from a right-sided ventral hernia containing small bowel. 2. Stable hematoma around the area of the left inguinal hernia repair. 3. Small volume of ascites. 4. Chronic interstitial lung disease. Reviewed, dictated and finalized at location A. IMPRESSION: 1. Small bowel obstruction from a right-sided ventral hernia containing small b owel. 2. Stable hematoma around the area of the left inguinal hernia repair. 3. Small volume of ascites. 4. Chronic interstitial lung disease.
--- NOTE | ~2023-03-04 | XR_ITS ---
EXAMINATION: XR abdomen NG/feed tube insert DATE: 03/04/2023 04:59 INDICATION: Nasogastric tube placement. TECHNIQUE: A supine view of the abdomen was obtained. COMPARISON: CT abdomen pelvis 03/04/2023 FINDINGS: There are multiple dilated loops of small bowel. The colon is decompressed. The nasogastric tube tip is in the stomach. IMPRESSION: 1. Nasogastric tube tip in the stomach. 2. Dilated small bowel, consistent with small bowel obstruction. Reviewed, dictated and finalized at location A.
--- NOTE | 2023-03-04 03:02 | ECG_ITS ---
Measurements Intervals [place] Rate: 105 P: 68 [place]: 201 QRS: -1 QRSD: 95 T: 46 QT: 351 QTc: 465 Interpretive Statements SINUS TACHYCARDIA VENTRICULAR PREMATURE COMPLEX BORDERLINE ECG COMPARED TO ECG 01/31/2023 14:08:03 SINUS TACHYCARDIA NOW PRESENT Electronically Signed On 03-04-2023 6:39:05 CDT by Jamison Hernandez D.O.
--- NOTE | 2023-03-04 03:05 | ED.GENADULT ---
HPI - General Adult General Chief complaint: Abdominal Pain Stated complaint: post op pain, vomiting Time Seen by Provider: 03/04/23 02:51 History of Present Illness HPI narrative: this is a 68-year-old male presenting pod 5 from a robotic hernia repair performed by Dr. Edenilson yoon. Patient was seen the day after surgery for abdominal pain and swelling and had a postop hematoma. He was then discharged from the ED the and had been doing well until Friday night when he developed diffuse abdominal pain and nausea and vomiting. patient believes that his vomit looked like fecal matter. He has been able to keep down food and liquid. He had a small bowel movement yesterday but has not passed gas today. Patient says that he stopped taking his pain medications over the weekend because he thought his abdominal pain may be due to constipation. Since then his pain has gotten worse. Related Data Home Medications Medication Instructions Recorded Confirmed albuterol sulfate 90 mcg/actuation 1 inh inhalation Q4-6H PRN Wheezing 01/13/23 02/25/23 breath activated powder inhaler,sensor (Proair Digihaler) amlodipine 2.5 mg tablet 2.5 mg PO DAILY 01/13/23 02/25/23 fluticasone fur. 100 mcg-umeclid 1 inh inhalation DAILY 01/13/23 02/25/23 62.5 mcg-vilant 25 mcg inhalat.powder (Trelegy Ellipta) hydrochlorothiazide 12.5 mg tablet 12.5 mg PO DAILY 01/13/23 02/25/23 loratadine 10 mg tablet 10 mg PO DAILY PRN SEASONAL 01/13/23 02/25/23 ALLERGIES multivitamin 1 tablet PO DAILY 01/13/23 02/25/23 olmesartan 40 mg tablet 40 mg PO DAILY 01/13/23 02/25/23 omeprazole 40 mg capsule,delayed 40 mg PO DAILY PRN ACID REFLEX 01/13/23 02/25/23 release vitamins A,C,K-pujj-idubck 4,296 1 cap PO BID 01/13/23 02/25/23 mcg-226 mg-90 mg capsule (PreserVision AREDS) fluticasone propionate 50 1 spray intranasal DAILY 01/22/23 02/25/23 mcg/actuation nasal spray,suspension (Flonase Allergy Relief) meloxicam 15 mg tablet 15 mg PO DAILY PRN Pain 01/22/23 02/25/23 Allergies Allergy/AdvReac Type Severity Reaction Status Date / Time adhesive tape AdvReac SKIN Verified 03/04/23 03:21 IRRITATION PMFSH Past Medical History Medical History Asthma GERD (gastroesophageal reflux disease) Hypertension Kidney stones Surgical History Surgical History H/O inguinal hernia repair 01/31/2023 - robotic laparoscopic bilateral inguinal hernia repair History of eye surgery History of hernia repair inguinal History of knee surgery Family History Family History Other Diabetes mellitus Hypertension Social History Social History Smoking status: Never smoker Second hand tobacco smoke exposure: No Alcohol intake: current Alcohol use details: 3-4/MONTH Substance use: never Substance use type: does not use Living arrangements: other Additional living arrangements comments: LIVES WITH SIGNIFICANT OTHER DOREEN RINCON Spiritual care concerns: No Exam Narrative: APPEARANCE: No apparent distress. Head: atraumatic. EYES: EOMI, NOSE: Atraumatic NECK: Trachea midline RESPIRATORY: No increased rate of breathing, clear to auscultation CARDIOVASCULAR: tachycardic, no peripheral edema ABDOMINAL: Nondistended, tenderness to palpation in the left upper quadrant, no guarding or rebound, 3 well healed surgical incision sites. Small hematoma to the right of the 3rd incision site. No overlying skin changes. MUSCULOSKELETAl: No obvious deformities NEURO: Alert. Moving 4/4 extremities SKIN:: Warm, dry. Normal color PSYCHIATRIC: Normal affect Course Vital Signs Vital signs: Vital Signs Temperature 98.5 F 03/04/23 02:45 Pulse Rate 117 H 03/04/23 02:45 Respiratory Rate 14 03/04/23 02:45 Blood
[2023-03-04] MEDS: ONDANSETRON INJ 4 MG/2 ML VIAL IV PUSH ×3 (03:12→12:11)
[2023-03-04] MEDS: FAMOTIDINE 20 MG/2 ML VIAL IV PUSH (03:13)
[2023-03-04] MEDS: SODIUM CHLORIDE 0.9% IV 2,000 ML 999 ML IV CONT (03:13)
[2023-03-04] MEDS: HYDROmorphone HCL INJ (*CRX) 1 MG/ML SYR 0.5 MG IV PUSH ×9 (03:15→16:24)
[2023-03-04 03:23] LABS: Basophils Percent Auto 0.3 % (0.2-1.2); Eosinophils Absolute Auto 0.3 K/mm3 (0-0.3); Eosinophils Percent Auto 2.3 % (0-4.4); Hematocrit 40.2 % (42.0-52.0); Hemoglobin 13.8 g/dL (14.0-18.0); Immature Granulocyte Absolute 0.04 K/mm3 (0.00-0.031); Immature Granulocyte Percent A 0.3 % (0-0.5); Lymphocytes Absolute Auto 1.12 K/mm3 (0.9-3.2); Lymphocytes Percent Auto 8.4 % (18.3-44.2); Mean Corpuscular HGB Conc 34.3 g/dl (32-36); Mean Corpuscular Hemoglobin 31.1 pg (26-34); Mean Corpuscular Volume 90.5 fl (80-100); Mean Platelet Volume 11.2 fl (7.4-10.4); Monocytes Percent Auto 7.4 % (2.6-8.5); Neutrophils Absolute Auto 10.8 K/mm3 (1.3-6.7); Neutrophils Percent Auto 81.3 % (45.5-73.1); Platelet Count Result 243 k/mm3 (150-375); Red Blood Count 4.44 M/mm3 (4.6-6.20); Red Cell Distribution Width 13.2 % (11.5-14.5); White Blood Count 13.3 K/mm3 (4.5-10.0)
[2023-03-04 03:33] LABS: INR 1.1; Prothrombin Time 14.5 Seconds (11.1-14.7)
[2023-03-04 03:34] LABS: Partial Thromboplastin Time 28.9 SECONDS (22.3-36.8)
[2023-03-04 03:41] LABS: Alanine Aminotransferase 16 U/L (6-50); Albumin Level 3.7 g/dL (3.5-5.1); Alkaline Phosphatase 77 U/L (38-126); Anion Gap 5 mmol/L (8-16); Aspartate Amino Transferase 21 U/L (17-59); Bilirubin,Total 1.5 mg/dL (0.2-1.3); Blood Urea Nitrogen 23 mg/dL (9-20); Calcium 8.8 mg/dL (8.4-10.2); Carbon Dioxide 31 mmol/L (22-30); Chloride 97 mmol/L (98-107); Estimated CRCL calculation 87 ml/min; Estimated Glomerular Filt Rate > 60; Glucose 167 mg/dL (65-110); Lactic Acid Reflex 1.5 mmol/L (0.7-2.0); Lipase 39 U/L (23-300); Magnesium 2.1 mg/dL (1.6-2.3); Potassium 3.3 mmol/L (3.4-5.0); Sodium 133 mmol/L (137-145)
[2023-03-04] MEDS: LACTATED RINGERS 1,000 ML 125 ML IV CONT ×2 (04:46→16:49)
--- NOTE | 2023-03-04 05:36 | ADMGEN ---
This patient, Derrell Noriega Jr., was admitted to Medical Room 249-01. Patient/family oriented to hospital policies and general routines including ID bracelet, bed and alarms, visiting hours, pain management, procedures, bathroom and other care routines, personal items, smoking policy, room service/diet, and visiting hours. Information on how to activate the Rapid Response Team has been discussed. Patient/Family are encouraged to report perceived risks to care and to ask questions if they do not understand what they are told or what they should do.
[2023-03-04] MEDS: POTASSIUM CHLORIDE INJ 40 MEQ in SODIUM CHLORIDE 0.9% IV 500 ML 130 MEQ IVPB (09:45)
--- NOTE | 2023-03-04 11:07 | PM.IMHP ---
H&P: HPI History of Present Illness Date/Time: 03/04/23 11:07 Chief Complaint: Abdominal pain, vomiting Narrative: This is a 68-year-old man who underwent a robotic-assisted laparoscopic recurrent left inguinal hernia repair with 12 x 17 cm 3D max mid left mesh by Dr. Scherer on 02/27/23. Postop day 1 he developed diffuse lower abdominal pain and swelling at the right lateral trochar site incision. He went to the ER on 02/28/23 for these complaints and was found to have a small area of swelling at the right lateral trochar incision. CT scan of the abdomen and pelvis showed a post-operative hematoma along the left inguinal canal. He was discharged home and instructed to follow-up with Dr. Scherer as scheduled. The patient went home and continued to have the same abdominal pain. He still noticed this small area of swelling at the right trochar incision, but it would go away when lying flat. His pain was more across his lower abdomen and not specifically localized to the incision. Two nights ago, he developed vomiting in the middle of the night. He had multiple episodes of NBNB emesis. His abdominal pain became more severe. He went to the ER yesterday, but left prior to being seen he reports due to the ER being so busy. His symptoms persisted and early this morning he began vomiting again, therefore he came back to the ER. CT scan of the abdomen and pelvis showed a small bowel obstruction from a right-sided ventral hernia containing small bowel, stable hematoma around the area of the left inguinal hernia repair, small volume ascites, and chronic interstitial lung disease. Labs were significant for WBC count 15.7, hemoglobin 14.2, potassium 3.3, and lactic acid 1.5. The patient was admitted to our service for surgical evaluation. NG tube has been placed. He was started on IV fluids, analgesics, and antiemetics. He is not passing any gas. He did have one bowel movement after surgery on postop day 3. He denies any heavy lifting or strenuous activity following surgery. Review of Systems Review of Systems: All systems reviewed & are unremarkable except as noted in HPI and below Constitutional: Constitutional: Reports no additional constitutional complaints, Denies chills, Denies fatigue, Denies fever(s), Denies poor appetite and Denies weakness Eyes: Eyes: Reports no additional eye complaints ENT: Reports system reviewed and no additional complaints, except as documented and Denies dizziness Cardiovascular: Cardiovascular: Reports no additional cardiovascular complaints, Denies chest pain and Denies leg edema Respiratory: Respiratory: Reports no additional respiratory complaints, Denies cough and Denies dyspnea Gastrointestinal: Gastrointestinal: Reports as per HPI, Reports no additional gastrointestinal complaints, Reports abdominal pain, Denies bloating, Denies coffee ground emesis, Reports nausea, Reports vomiting and Denies hematemesis Genitourinary: Genitourinary: Reports no additional male genitourinary complaints, Denies dysuria, Denies urinary frequency and Denies urinary urgency Musculoskeletal: Musculoskeletal: Reports no additional musculoskeletal complaints, Denies abnormal gait and Denies joint swelling Integumentary/Breasts: Skin/Breast: Reports system reviewed and no additional complaints, except as docu Neurologic: Reports system reviewed and no additional complaints, except as documented, Denies headache(s), Denies focal weakness, Denies numbness and Denies tingling PMFSH Past Medical History Medical History (Updated 03/04/23 @ 11:27 by FELICIA Weinstein) Asthma GERD (gastroesophageal reflux disease) Hypertension Kidney stones Surgical History Surgical History (Updated 03/04/23 @ 11:27 by FELICIA Weinstein) H/O inguinal hernia repair 01/31/2023 - robotic laparoscopic bilateral inguinal hernia repair History of eye surgery History of hernia repair inguinal History of knee surgery Family History Family History (Reviewed
[2023-03-04] MEDS: PIPERACILLN/TAZ 3.375GM/NS50ML 3.375 GM/50 ML BAG IVPB (12:22)
--- NOTE | 2023-03-04 12:53 | WPDANESEPPF ---
Anes - Initial Pre Proc Eval Procedure: Operation Date: 03/04/23 13:30 Proposed Procedures p Diagnostic Laparoscopy Reduction Of Incarcerated Port Site Hernia - Kari Robertson MD Date/Time: 03/04/23 12:53 Surgeon: Kari Robertson MD Pre Op Diagnosis: hernia w sbo Patient Data Age: 68 Gender: M Height: 1.96 m Weight: 103.8 kg Last Vital Signs Temp 36.8 C 03/04/23 12:05 Pulse 78 03/04/23 12:05 Resp 16 03/04/23 12:05 BP 153/66 H 03/04/23 12:05 Pulse Ox 100 03/04/23 12:05 O2 Del Method Room Air 03/04/23 12:05 Allergies Allergy/AdvReac Type Severity Reaction Status Date / Time adhesive tape AdvReac SKIN Verified 03/04/23 03:21 IRRITATION Home Medications Medication Instructions Recorded Confirmed Type albuterol sulfate 90 mcg/actuation 1 inh inhalation Q4-6H PRN Wheezing 01/13/23 03/04/23 History breath activated powder inhaler,sensor (Proair Digihaler) amlodipine 2.5 mg tablet 2.5 mg PO DAILY 01/13/23 03/04/23 History fluticasone fur. 100 mcg-umeclid 1 inh inhalation DAILY 01/13/23 03/04/23 History 62.5 mcg-vilant 25 mcg inhalat.powder (Trelegy Ellipta) hydrochlorothiazide 12.5 mg tablet 12.5 mg PO DAILY 01/13/23 03/04/23 History loratadine 10 mg tablet 10 mg PO DAILY PRN SEASONAL 01/13/23 03/04/23 History ALLERGIES multivitamin 1 tablet PO DAILY 01/13/23 03/04/23 History olmesartan 40 mg tablet 40 mg PO DAILY 01/13/23 03/04/23 History omeprazole 40 mg capsule,delayed 40 mg PO DAILY PRN ACID REFLEX 01/13/23 03/04/23 History release vitamins A,C,F-cmuc-xbcaii 4,296 1 cap PO BID 01/13/23 03/04/23 History mcg-226 mg-90 mg capsule (PreserVision AREDS) fluticasone propionate 50 1 spray intranasal DAILY 01/22/23 03/04/23 History mcg/actuation nasal spray,suspension (Flonase Allergy Relief) ibuprofen 600 mg tablet 600 mg PO Q6H PRN Pain (Scale 03/04/23 03/04/23 History Score 4-6) oxycodone-acetaminophen 5 mg-325 0.5 - 1 tablet PO Q6H PRN Pain 03/04/23 03/04/23 History mg tablet (Scale Score 4-6) Laboratory Tests 03/04/23 03:10 WBC 13.3 H K/mm3 (4.5-10.0) RBC 4.44 L M/mm3 (4.6-6.20) Hgb 13.8 L g/dL (14.0-18.0) Hct 40.2 L % (42.0-52.0) MCV 90.5 fl (80-100) MCH 31.1 pg (26-34) MCHC 34.3 g/dl (32-36) RDW 13.2 % (11.5-14.5) Plt Count 243 k/mm3 (150-375) MPV 11.2 H fl (7.4-10.4) Immature Gran % (Auto) 0.3 % (0-0.5) Neut % (Auto) 81.3 H % (45.5-73.1) Lymph % (Auto) 8.4 L % (18.3-44.2) Cloud % (Auto) 7.4 % (2.6-8.5) Eos % (Auto) 2.3 % (0-4.4) Baso % (Auto) 0.3 % (0.2-1.2) Lymph # (Auto) 1.12 K/mm3 (0.9-3.2) Cloud # (Auto) 1.0 H K/mm3 (0.1-0.6) Eos # (Auto) 0.3 K/mm3 (0-0.3) Baso # (Auto) 0.0 K/mm3 (0.0-0.1) Abs Immat Gran (auto) 0.04 H K/mm3 (0.00-0.031) Absolute Neuts (auto) 10.8 H K/mm3 (1.3-6.7) Absolute Nucleated RBC 0.0 K/mm3 (0.0-0.012) Nucleated RBC % 0.0 % (0.0-0.2) PT 14.5 Seconds (11.1-14.7) INR 1.1 APTT 28.9 SECONDS (22.3-36.8) Sodium 133 L mmol/L (137-145) Potassium 3.3 L mmol/L (3.4-5.0) Chloride 97 L mmol/L (98-107) Carbon Dioxide 31 H mmol/L (22-30) Anion Gap 5 L mmol/L (8-16) BUN 23 H mg/dL (9-20) Creatinine 0.90 mg/dL (0.7-1.3) Estim Creat Clear Calc 87 ml/min Estimated GFR > 60 (59 - ) Glucose 167 H mg/dL (65-110) Lactic Acid 1.5 mmol/L (0.7-2.0) Calcium 8.8 mg/dL (8.4-10.2) Magnesium 2.1 mg/dL (1.6-2.3) Total Bilirubin 1.5 H mg/dL (0.2-1.3) AST 21 U/L (17-59) ALT 16 U/L (6-50) Alkaline Phosphatase 77 U/L (38-126) Total Protein 7.0 g/dL (6.3-8.2) Albumin 3.7 g/dL (3.5-5.1) Lipase 39 U/L (23-300) Patient hx anesthesia problems: none Family hx anesthesia problems: none Results Review: All pre-operative results and documents h
--- NOTE | 2023-03-04 13:35 | WPDHPUPDATE1 ---
History and Physical Update Update Date/Time: 03/04/23 13:35 History and Physical has been reviewed, including an updated exam of the patient. There are NO changes in the patient's condition. Risks, benefits, and alternatives have been discussed and questions answered. Patient agrees to proceed with procedure.
[2023-03-04] MEDS: BUPIVACAINE/EPINEPHRINE 0.25% 10 ML VIAL 30 ML INFILTRATE (14:24)
--- NOTE | 2023-03-04 14:41 | P.OP_ITS ---
Procedure Note - Detailed Date of Procedure 03/04/23 Pre-op Diagnosis Small-bowel obstruction, incarcerated right abdominal port site hernia Post-op Diagnosis Same Procedure Performed exploratory laparoscopy, reduction of incarcerated right abdominal port site hernia, primary repair incisional hernia measuring approximately 12 mm Surgeon Kari Robertson MD Anesthesia General and Local Indications 68-year-old male status post robotic assisted left inguinal hernia repair presenting with a small-bowel obstruction secondary to incarcerated right abdominal port site hernia. Findings Loop of small intestine incarcerated within right abdominal port site hernia, hernia measuring approximately 12 mm Description of Procedure The patient was taken to the operating room and placed in the supine position. After adequate induction of general anesthesia, the patient was prepped and draped in the normal sterile fashion. A time-out was then done to verify the patient's identity, as well as the procedure being performed. I began by making a 5 mm incision in the left upper quadrant. I then placed the Veress needle into the peritoneal cavity and CO2 gas was insufflated. After adequate pneumoperitoneum was achieved, the Veress needle was removed and a 5 mm Optiview trocar was placed under direct visualization. I was able to identify the right- sided port site hernia. There was a loop of small intestine incarcerated within this hernia. I then placed and additional 5 mm port in the left mid abdomen under direct visualization. I then used a non traumatic grasper to gently reduce the incarcerated small bowel. Once reduced, the bowel looked to be viable and non compromised. We did observe this loop of intestine for approximately 15 minutes to ensure viability. During this time, I ran the entirety of the small bowel and no other pathology or obstruction points were noted. I did check the area of the pelvis and saw no evidence of recurrent inguinal hernia or pathology. At this point, I was confident with the viability of the incarcerated small intestine. The incisional hernia measured approximately 12 mm. I was able to close the posterior sheath under direct visualization using a 0 Vicryl suture. The abdomen was then desufflated and all ports were removed. I enlarged the 8 mm incision in the right mid abdomen to gain access to the anterior fascia. Under direct visualization, I closed the anterior fascia with interrupted 0 Vicryl suture. All incisions were then closed with 4-0 Monocryl subcuticular suture. Dermabond was placed on the wounds. The patient tolerated the procedure well and was extubated postoperatively. He will be transferred to the recovery room in stable condition. Estimated Blood Loss 5 Pathology None sent Complications No immediate complications Condition Stable Disposition PACU [facility] Billing Surgery - Charge Forward: Surgery Billing
[2023-03-04] MEDS: LACTATED RINGERS 1,000 ML 30 ML IV CONT ×2 (14:43)
[2023-03-04] MEDS: fentaNYL CITRATE INJ (*CRX) 100 MCG/2 ML VIAL 25 MCG IV PUSH ×6 (14:55→16:19)
[2023-03-04] MEDS: KETOROLAC 30 MG/ML VIAL (*BKC) IV PUSH (20:17)
[2023-03-04] MEDS: HYDROmorphone HCL INJ (*CRX) 1 MG/ML SYR IV PUSH (22:03)
[2023-03-05] VITALS (14 sets, daily range): BP systolic 101–116; BP diastolic 56–69; PULSE 92–110; RESP 14–18; TEMP 36.6–37.2; O2SAT 94–99
[2023-03-05] MEDS: LACTATED RINGERS 1,000 ML 125 ML IV CONT ×3 (01:06→18:50)
[2023-03-05] MEDS: KETOROLAC 30 MG/ML VIAL (*BKC) IV PUSH (01:06)
[2023-03-05 04:27] LABS: Hematocrit 38.9 % (42.0-52.0); Hemoglobin 12.8 g/dL (14.0-18.0); Mean Corpuscular HGB Conc 32.9 g/dl (32-36); Mean Corpuscular Hemoglobin 31.1 pg (26-34); Mean Corpuscular Volume 94.4 fl (80-100); Mean Platelet Volume 10.7 fl (7.4-10.4); Platelet Count Result 187 k/mm3 (150-375); Red Blood Count 4.12 M/mm3 (4.6-6.20); Red Cell Distribution Width 13.6 % (11.5-14.5); White Blood Count 10.5 K/mm3 (4.5-10.0)
[2023-03-05 04:37] LABS: Anion Gap 6 mmol/L (8-16); Blood Urea Nitrogen 32 mg/dL (9-20); Calcium 7.6 mg/dL (8.4-10.2); Carbon Dioxide 30 mmol/L (22-30); Chloride 99 mmol/L (98-107); Estimated CRCL calculation 47 ml/min; Estimated Glomerular Filt Rate 40; Glucose 102 mg/dL (65-110); Potassium 3.9 mmol/L (3.4-5.0); Sodium 135 mmol/L (137-145)
[2023-03-05] MEDS: SODIUM CHLORIDE 0.9% IV 1,000 ML 999 ML IV CONT (05:47)
[2023-03-05] MEDS: ONDANSETRON INJ 4 MG/2 ML VIAL IV PUSH (05:49)
[2023-03-05] MEDS: PANTOPRAZOLE SODIUM IV 40 MG VIAL IV PUSH (08:20)
[2023-03-05] MEDS: HYDROmorphone HCL INJ (*CRX) 1 MG/ML SYR IV PUSH ×3 (08:22→16:37)
--- NOTE | 2023-03-05 09:35 | PM.PNGS ---
Progress Note: A&P Assessment and Plan (1) Incarcerated incisional hernia: Code(s): K43.0 - Incisional hernia with obstruction, without gangrene Status: Acute Assessment and Plan: doing well, await ROBF, cont NG for now and bowel rest (2) KATHERINE (acute kidney injury): Code(s): N17.9 - Acute kidney failure, unspecified Status: Acute Assessment and Plan: decreased UOP, sl increased Cr, will bolus and cont IVF, follow UOP, medical consult Subjective Subjective Date/Time Seen: 03/05/23 09:35 Interval history: overall feeling better, but c/o diffuse soreness maurice c movt Review of Systems Review of Systems: All systems reviewed & are unremarkable except as noted in HPI and below Exam Const: General: cooperative, comfortable and no acute distress Resp: Auscultation: clear to auscultation bilaterally Cardio: Rate: regular rate Rhythm: regular rhythm GI: Inspection: normal to inspection, distended and incision GI Palp: Yes abdominal tenderness, Yes Soft to palpation, Yes Tenderness to palpation present (GI), No Guarding due to palpation present (GI) and No Rigid due to palpation Objective Data Vital Signs Vital Signs: Vital Signs - 24 hr 03/04/23 12:05 03/04/23 14:50 03/04/23 15:05 Temperature 36.8 C 37.2 C Pulse Rate 78 64 75 Respiratory Rate 16 12 10 L Blood Pressure 153/66 H 159/74 H 163/80 H Pulse Oximetry 100 100 100 Oxygen Delivery Room Air Simple Face Mask Simple Face Mask Oxygen Flow Rate 8 8 03/04/23 15:20 03/04/23 15:35 03/04/23 15:50 Temperature Pulse Rate 79 85 85 Respiratory Rate 16 18 15 Blood Pressure 149/81 H 139/75 148/77 H Pulse Oximetry 98 95 96 Oxygen Delivery Simple Face Mask Room Air Nasal Cannula Oxygen Flow Rate 8 2 03/04/23 16:05 03/04/23 16:25 03/04/23 16:45 Temperature 36.4 C Pulse Rate 93 80 102 H Respiratory Rate 16 20 20 Blood Pressure 156/71 H 136/72 135/64 Pulse Oximetry 97 98 98 Oxygen Delivery Nasal Cannula Nasal Cannula Oxygen Flow Rate 2 2 03/04/23 17:30 03/04/23 17:00 03/04/23 18:30 Temperature 36.8 C 36.8 C 36.8 C Pulse Rate 96 104 H 95 Respiratory Rate 18 20 16 Blood Pressure 121/62 120/62 121/61 Pulse Oximetry 100 98 98 Oxygen Delivery Oxygen Flow Rate 03/04/23 19:45 03/04/23 20:13 03/05/23 00:13 Temperature 36.9 C 36.6 C Pulse Rate 97 100 Respiratory Rate 16 16 Blood Pressure 126/69 103/63 Pulse Oximetry 100 100 96 Oxygen Delivery Room Air Oxygen Flow Rate 03/05/23 01:58 03/05/23 04:26 03/04/23 20:00 Temperature 36.9 C 36.8 C Pulse Rate 100 97 99 Respiratory Rate 16 16 Blood Pressure 104/62 115/69 Pulse Oximetry 95 94 Oxygen Delivery Oxygen Flow Rate 03/05/23 00:00 03/05/23 04:00 03/05/23 08:00 Temperature Pulse Rate 101 H 95 97 Respiratory Rate 16 Blood Pressure Pulse Oximetry 94 Oxygen Delivery Room Air Oxygen Flow Rate 03/05/23 08:00 03/05/23 08:00 Temperature Pulse Rate 104 H 99 Respiratory Rate Blood Pressure Pulse Oximetry Oxygen Delivery Oxygen Flow Rate Intake/Output Intake/Output: Intake & Output 03/02/23 03/03/23 03/04/23 03/05/23 23:59 23:59 23:59 23:59 Intake Total 5620 2000 Output Total 500 600 Balance 5120 1400 Meds/Results Medications: Active Medications Generic Name Dose Route Start Last Admin Trade Name Freq PRN Reason Stop Dose Admin Hydromorphone HCl 1 mg 03/04/23 19:01 03/05/23 08:22 Hydromorphone Hcl Inj (*Crx) 1 Mg/Ml Syr IV PUSH 1 mg Q2H PRN Administration Pain Rated 7-10 Lactated Ringer's 1,000 mls @ 125 mls/hr 03/04/23 04:20 03/05/23 01:06 Lr - Lactated Ringers Iv IV CONT 125 mls/hr .Q8H URIEL Administration Acetaminophen 1,000 mg in 100 mls @ 400 mls/hr 03/04/23 11:08 03/04/23 17:30 Ofirmev 1,000 Mg Ivpb IVPB 03/05/23 11:07 Infused Q6H PRN Infusion Pain Rated 4-6 Ondansetron HCl 4 mg 03/04/23 04:18 03/05/23 05:49
--- NOTE | 2023-03-05 16:00 | WPDANESPN ---
Anes - Prog Note Post-Op Date/Time: 03/05/23 16:00 Cardiovascular status: normal Respiratory status: normal Airway patency: baseline Mental status: baseline Post-Op hydration status: normal Vital Signs: Last Vital Signs Temp 36.7 C 03/05/23 14:18 Pulse 97 03/05/23 14:18 Resp 16 03/05/23 14:18 BP 109/56 L 03/05/23 14:18 Pulse Ox 95 03/05/23 14:18 O2 Del Method Room Air 03/05/23 08:00 O2 Flow Rate 2 03/04/23 16:25 Pain Score (VAS): 12/20 I/O: Intake & Output 03/05/23 03/05/23 03/05/23 07:59 15:59 23:59 Intake Total 2000 1000 Output Total 600 Balance 1400 1000 Laboratory Tests 03/05/23 04:23 03/05/23 04:23 03/05/23 04:23 WBC 10.5 H RBC 4.12 L Hgb 12.8 L Hct 38.9 L MCV 94.4 MCH 31.1 MCHC 32.9 RDW 13.6 Plt Count 187 MPV 10.7 H Sodium 135 L Potassium 3.9 Chloride 99 Carbon Dioxide 30 Anion Gap 6 L BUN 32 H Creatinine 1.70 H Estim Creat Clear Calc 47 Estimated GFR 40 L Glucose 102 Calcium 7.6 L Post-procedural complaints: none Patient Feedback: Patient satisfied with anesthetic care. Other Findings: Patient c/o difficulty voiding and constipation
--- NOTE | 2023-03-05 18:26 | PM.IMCN ---
Assessment and Plan Assessment and plan (1) KATHERINE (acute kidney injury): Code(s): N17.9 - Acute kidney failure, unspecified Status: Acute (2) Incarcerated incisional hernia: Code(s): K43.0 - Incisional hernia with obstruction, without gangrene Status: Acute (3) SBO (small bowel obstruction): Code(s): K56.609 - Unspecified intestinal obstruction, unspecified as to partial versus complete obstruction Status: Acute (4) Postoperative hematoma: Status: Acute (5) ILD (interstitial lung disease): Code(s): J84.9 - Interstitial pulmonary disease, unspecified Status: Acute (6) Hypertension: Code(s): I10 - Essential (primary) hypertension Status: Acute (7) Asthma: Code(s): J45.909 - Unspecified asthma, uncomplicated Status: Acute (8) H/O inguinal hernia repair: Code(s): Z98.890 - Other specified postprocedural states; Z87.19 - Personal history of other diseases of the digestive system Status: Acute Plan Patient has been admitted to [address] [place] [address]. Appears of tolerated the procedure well. He is up ambulating the halls. He has developed acute kidney injury since admission. His BUN was elevated on admission to suggest he may have been dehydrated given the nausea and vomiting so this could be prerenal. Consider also contrast induced since he distress eat IV contrast yesterday. He is on hydrochlorothiazide and ibuprofen prior to admission as well as an ARB which all could be contributing to acute kidney injury as well. Unlikely to be post renal given is a Lowe catheter in place. No hypotension recorded to suggest poor renal perfusion. Continue IV fluids. Will check urine electrolytes. Will check renal ultrasound. Patient states he has asthma but probably has interstitial lung disease. He does well with the Trelegy which will continue. Continue IV blood pressure is low normal so mikey hold anti-HTN medications for now. Continue to encourage patient to be out of bed and walking in halls. Will continue to follow along. Thank you for allowing me to be a part of the patients care. HPI Data of Consult Consult date: 03/05/23 Requesting Physician: Kari Robertson MD Primary Care Provider: Edenilson Scherer MD Consult Narrative Narrative: Derrell Noriega Jr. is a 68 year old male with asthma and HTN here for abdominal pain and found to have an incarcerated hernia. Patient had robotic laparoscopic bilateral inguinal hernia repair on 01/31/23. He did slip and fall about 1 week later (02/07) and experienced pain with left groin swelling. He was seen in the office on 02/13/23 and US 02/17/23 showing a left inguinal hernia but no seroma. Patient returned to OR and underwent a robotic-assisted laparoscopic recurrent left inguinal hernia repair with mesh on 02/27/23. He was discharged later that same day. The next day, patient developed lower abdominal pain and swelling at the right lateral trochar site incision. In the ER, CT A/P showing post-op hematoma along the left inguinal canal with extensive soft tissue gas. The patient returned home but continued to have symptoms. His abdominal pain worsened again mostly in the lower abdomen. Developed nausea and vomiting. His last bowel movement was 1 day prior to admission. He return to the emergency room on March 03 but left without being seen because of the long wait. He continued to have nausea and vomiting. Initially the emesis was without blood or coffee-ground. However on the morning of admission around 2:15 a.m., he noted that the emesis and turned ?black? prompting his return to the ED. In the ED, patient was tachycardic 117. Blood pressure was stable. White count was 13 K with a BUN of 23 and a creatinine of 0.9. LFTs were normal except for total bilirubin 1.5. Lipase was normal. Urinalysis the day before was essentially clear. CT of the abdomen and pelvis with contrast shows small bowel obstructi
[2023-03-05 23:04] LABS: Bacteria Urine None Seen /hpf; Need Manual Microscopic Reviewed; Non Pathogenic Casts >20; Squamous Epithelial Cell Urine Moderate /hpf (Few); WBC Urine 0-5 /hpf
[2023-03-05 23:08] LABS: Appearance Urine Slightly Cloudy (Clear); Bilirubin Urine 3+ (Negative); Blood Urine Trace-intact (Negative); Color Urine Amber (Yellow); Glucose Urine UA Trace mg/dL (Negative); Ketones Urine Trace mg/dL (Negative); Leukocyte Esterase Ur Negative LEU/UL (Negative); Nitrate Urine Positive (Negative); Protein Urine 2+ mg/dL (Negative); Specific Grav Ur >= 1.030 (1.001-1.035)
[2023-03-05 23:12] LABS: Eosinophil Urine None Seen % (None Seen); Urine Eos QC 2nd Tech Confirmed
[2023-03-05 23:14] LABS: Add Urine Microscopic? YES
[2023-03-06] VITALS (17 sets, daily range): BP systolic 111–133; BP diastolic 58–90; PULSE 102–150; RESP 16–20; TEMP 36.7–37.8; O2SAT 90–97
[2023-03-06] MEDS: LACTATED RINGERS 1,000 ML 125 ML IV CONT ×3 (02:50→18:50)
[2023-03-06] MEDS: HYDROmorphone HCL INJ (*CRX) 1 MG/ML SYR IV PUSH ×4 (03:36→22:50)
[2023-03-06 04:22] LABS: Sodium Urine Random 13 meq/L
[2023-03-06 04:28] LABS: Creatinine Urine 393.8 mg/dL
[2023-03-06 05:20] LABS: Basophils Percent Auto 0.2 % (0.2-1.2); Eosinophils Absolute Auto 0.3 K/mm3 (0-0.3); Eosinophils Percent Auto 2.4 % (0-4.4); Hematocrit 34.8 % (42.0-52.0); Hemoglobin 11.3 g/dL (14.0-18.0); Immature Granulocyte Absolute 0.07 K/mm3 (0.00-0.031); Immature Granulocyte Percent A 0.6 % (0-0.5); Lymphocytes Absolute Auto 0.47 K/mm3 (0.9-3.2); Lymphocytes Percent Auto 4.1 % (18.3-44.2); Mean Corpuscular HGB Conc 32.5 g/dl (32-36); Mean Corpuscular Hemoglobin 30.7 pg (26-34); Mean Corpuscular Volume 94.6 fl (80-100); Mean Platelet Volume 11.3 fl (7.4-10.4); Monocytes Absolute Auto 0.5 K/mm3 (0.1-0.6); Monocytes Percent Auto 4.4 % (2.6-8.5); Neutrophils Absolute Auto 10.1 K/mm3 (1.3-6.7); Neutrophils Percent Auto 88.3 % (45.5-73.1); Platelet Count Result 188 k/mm3 (150-375); Red Blood Count 3.68 M/mm3 (4.6-6.20); Red Cell Distribution Width 13.9 % (11.5-14.5); White Blood Count 11.4 K/mm3 (4.5-10.0)
[2023-03-06 05:32] LABS: Alanine Aminotransferase 15 U/L (6-50); Albumin Level 2.7 g/dL (3.5-5.1); Alkaline Phosphatase 55 U/L (38-126); Anion Gap 6 mmol/L (8-16); Aspartate Amino Transferase 19 U/L (17-59); Bilirubin,Total 1.1 mg/dL (0.2-1.3); Blood Urea Nitrogen 55 mg/dL (9-20); Calcium 7.6 mg/dL (8.4-10.2); Carbon Dioxide 30 mmol/L (22-30); Chloride 100 mmol/L (98-107); Creatine Kinase 75 U/L (55-170); Estimated CRCL calculation 39 ml/min; Estimated Glomerular Filt Rate 32; Glucose 101 mg/dL (65-110); Magnesium 1.7 mg/dL (1.6-2.3); Phosphorus 3.5 mg/dL (2.5-4.5); Potassium 3.7 mmol/L (3.4-5.0); Sodium 136 mmol/L (137-145)
[2023-03-06 05:49] LABS: Burr Cells 2+ (NORMAL); Ovalocytes 1+ (NORMAL); Platelet Estimate Adequate (Adequate); Schistocytes None Seen (NORMAL)
[2023-03-06] MEDS: PANTOPRAZOLE SODIUM IV 40 MG VIAL IV PUSH (08:58)
--- NOTE | 2023-03-06 11:16 | PM.PNGS ---
Progress Note: A&P Assessment and Plan (1) Incarcerated incisional hernia: Code(s): K43.0 - Incisional hernia with obstruction, without gangrene Status: Acute Assessment and Plan: doing well, +bowel fxn, will clamp NG and hopefully remove later today, start clears if NG out (2) KATHERINE (acute kidney injury): Code(s): N17.9 - Acute kidney failure, unspecified Status: Acute Assessment and Plan: Cr sl increased, appreciate hospitalist input and management Subjective Subjective Date/Time Seen: 03/06/23 11:16 Interval history: feels better, still c soreness, +bowel fxn Review of Systems Review of Systems: All systems reviewed & are unremarkable except as noted in HPI and below Exam Const: General: cooperative, comfortable and no acute distress Resp: Auscultation: clear to auscultation bilaterally Cardio: Rate: regular rate Rhythm: regular rhythm GI: Inspection: normal to inspection, distended and incision GI Palp: Yes abdominal tenderness, Yes Soft to palpation, Yes Tenderness to palpation present (GI), No Guarding due to palpation present (GI) and No Rigid due to palpation Objective Data Vital Signs Vital Signs: Vital Signs - 24 hr 03/05/23 14:18 03/05/23 12:00 03/05/23 16:00 Temperature 36.7 C Pulse Rate 97 108 H 103 H Respiratory Rate 16 Blood Pressure 109/56 L Pulse Oximetry 95 Oxygen Delivery 03/05/23 18:02 03/05/23 19:59 03/06/23 01:50 Temperature 37.2 C 36.8 C 37.3 C Pulse Rate 110 H 100 102 H Respiratory Rate 18 16 16 Blood Pressure 106/61 116/56 L 127/67 Pulse Oximetry 99 95 95 Oxygen Delivery 03/05/23 20:00 03/06/23 00:00 03/06/23 04:00 Temperature Pulse Rate 103 H 113 H 116 H Respiratory Rate Blood Pressure Pulse Oximetry Oxygen Delivery 03/05/23 21:45 03/06/23 06:26 03/06/23 08:58 Temperature 36.7 C Pulse Rate 113 H Respiratory Rate 18 18 Blood Pressure 113/66 Pulse Oximetry 95 92 92 Oxygen Delivery Room Air Room Air 03/06/23 08:00 03/06/23 10:00 Temperature 37.0 C Pulse Rate 112 H 102 H Respiratory Rate 18 Blood Pressure 111/63 Pulse Oximetry 97 Oxygen Delivery Intake/Output Intake/Output: Intake & Output 03/03/23 03/04/23 03/05/23 03/06/23 23:59 23:59 23:59 23:59 Intake Total 5620 4050 2000 Output Total 500 730 375 Balance 5120 3320 1625 Meds/Results Medications: Active Medications Generic Name Dose Route Start Last Admin Trade Name Freq PRN Reason Stop Dose Admin Albuterol 1 puff 03/05/23 19:22 Albuterol Sulfate (*Sp) Inhaler INHALATION Q4-6H PRN Wheezing Fluticasone/Umeclidinium/Vilanterol 1 puff 03/06/23 09:00 Fluticasone/Umeclidin/Vilanter 100-62.5-25 Mcg Ellipta INHALATION DAILY URIEL Hydromorphone HCl 1 mg 03/04/23 19:01 03/06/23 10:48 Hydromorphone Hcl Inj (*Crx) 1 Mg/Ml Syr IV PUSH 1 mg Q2H PRN Administration Pain Rated 7-10 Lactated Ringer's 1,000 mls @ 125 mls/hr 03/04/23 04:20 03/06/23 10:56 Lr - Lactated Ringers Iv IV CONT 125 mls/hr .Q8H URIEL Administration Ondansetron HCl 4 mg 03/04/23 04:18 03/05/23 05:49 Ondansetron Inj 4 Mg/2 Ml Vial IV PUSH 4 mg Q4H PRN Administration Nausea Pantoprazole Sodium 40 mg 03/05/23 09:00 03/06/23 08:58 Pantoprazole Sodium Iv 40 Mg Vial IV PUSH 40 mg QAM URIEL Administration Radiology Results: ITS Impressions Abdomen X-Ray 03/04/23 05:41 IMPRESSION: 1. Nasogastric tube tip in the stomach. 2. Dilated small bowel, consistent with small bowel obstruction. Abdomen/Pelvis CT 03/04/23 05:57 IMPRESSION: 1. Small bowel obstruction from a right-sided ventral hernia containing small bowel. 2. Stable hematoma around the area of the left inguinal hernia repair. 3. Small volume of ascites. 4. Chronic interstitial lung disease. Renal Ultrasound 03/05/23 19:51 IMPRESSION: Bladder decompressed by Lowe and therefore not w
[2023-03-06] MEDS: FLUTICASONE/UMECLIDIN/VILANTER 100-62.5-25 MCG ELLIPTA 1 PUFF INHALATION (11:25)
--- NOTE | 2023-03-06 18:53 | PM.IMPN ---
Progress Note: A&P Assessment and Plan (1) KATHERINE (acute kidney injury): Code(s): N17.9 - Acute kidney failure, unspecified Status: Acute (2) Incarcerated incisional hernia: Code(s): K43.0 - Incisional hernia with obstruction, without gangrene Status: Acute (3) SBO (small bowel obstruction): Code(s): K56.609 - Unspecified intestinal obstruction, unspecified as to partial versus complete obstruction Status: Acute (4) Postoperative hematoma: Status: Acute (5) ILD (interstitial lung disease): Code(s): J84.9 - Interstitial pulmonary disease, unspecified Status: Acute (6) Hypertension: Code(s): I10 - Essential (primary) hypertension Status: Acute (7) Asthma: Code(s): J45.909 - Unspecified asthma, uncomplicated Status: Acute (8) H/O inguinal hernia repair: Code(s): Z98.890 - Other specified postprocedural states; Z87.19 - Personal history of other diseases of the digestive system Status: Acute Plan Patient has been admitted to [address] [place] [address]. Appears of tolerated the procedure well. He is up ambulating the halls. He has developed acute kidney injury since admission. His BUN was elevated on admission to suggest he may have been dehydrated given the nausea and vomiting so this could be prerenal. Consider also contrast induced since he distress eat IV contrast yesterday. He is on hydrochlorothiazide and ibuprofen prior to admission as well as an ARB which all could be contributing to acute kidney injury as well. Unlikely to be post renal given is a Lowe catheter in place. No hypotension recorded to suggest poor renal perfusion. Continue IV fluids. Will check urine electrolytes. Will check renal ultrasound. Patient states he has asthma but probably has interstitial lung disease. He does well with the Trelegy which will continue. Continue IV blood pressure is low normal so mikey hold anti-HTN medications for now. Continue to encourage patient to be out of bed and walking in halls. Will continue to follow along. Thank you for allowing me to be a part of the patients care. 03/06: Patient having low grade fevers. UA noted but not consistent with UTI but does show 2+ protein and RBC with trace blood (Lowe trauma?). Urine eosinophils were negative. FENa 0.5% to suggest prerenal etiology of his acute kidney injury. He may be 3rd spacing fluid into his abdomen. CT scan did show small volume ascites on admission. Renal US showing no acute findings with mild free pelvic fluid. Creatinine up to 2.1 today. Urine output not fully calculated today but he had good volume in the Lowe bag. Continue IV fluids. White count up slightly from yesterday. Continue to monitor for evidence of infectious process. Hold off on antibiotics at this time. Hemoglobin stable so will add Heparin for DVT prophylaxis. BP remains stable so continue to hold HCTZ, Norvasc and olmesartan. Further evaluation if he continues to have fevers. Subjective Date/time seen: 03/06/23 18:53 Interval history: 68 year old male with asthma and HTN here for abdominal pain and found to have an incarcerated hernia. He has been up walking the halls. He is having multiple bowel movements now with stool incontinence. Or shortness of breath. No chest pain. He just get back into bed in his abdominal pain is increased to 8/10. NG tube is been removed and diet was started Exam Narrative: Tm 100.0 98.1 125/63 109 18 93% ra Gen - NARD Chest - lungs clear anteriorly and in the flanks, nml RR CV - RRR S1/S2; Tele showing episode of narrow complex tachycardia and frequent PACs Abd - soft, less distended, +BS. incisions clean, dry and intact. - scrotal ecchymosis noted. Lowe secured draining clear yellow-orange urine Ext - no pedal edema. Psych - normal mood and affect. Patient is pleasant and cooperative. Skin - warm and dry. Objective Data Vital Signs Vit
[2023-03-06] MEDS: HYDROcodone/acetaminophen (*CRX) 5-325 MG TABLET 1 TAB PO (20:20)
[2023-03-06] MEDS: HEPARIN SODIUM 5,000 UNITS/ML VIAL 5000 UNITS SUB-Q (20:21)
[2023-03-06] MEDS: LACTATED RINGERS 1,000 ML 100 ML IV CONT (22:05)
--- NOTE | 2023-03-06 22:46 | ECG_ITS ---
Measurements Intervals [place] Rate: 153 P: IN: 0 QRS: -8 QRSD: 101 T: 86 QT: 305 QTc: 488 Interpretive Statements ATRIAL FIBRILLATION WITH RAPID VENTRICULAR RESPONSE VENTRICULAR PREMATURE COMPLEXES EARLY PRECORDIAL R/S TRANSITION NONSPECIFIC ST & T-WAVE ABNORMALITY- ANTEROLAT/HIGH LAT LEADS ABNORMAL ECG COMPARED TO ECG 03/04/2023 03:06:45 ATRIAL FIBRILLATION NOW PRESENT Electronically Signed On 03-07-2023 6:35:18 CDT by Jamison Hernandez D.O.
[2023-03-06] MEDS: ONDANSETRON INJ 4 MG/2 ML VIAL IV PUSH (23:16)
[2023-03-06] MEDS: METOPROLOL TARTRATE INJ 5 MG/5 ML VIAL IV PUSH (23:16)
[2023-03-07] VITALS (25 sets, daily range): BP systolic 86–124; BP diastolic 55–98; PULSE 67–147; RESP 16–20; TEMP 36.5–37.1; O2SAT 93–98
--- NOTE | 2023-03-07 | ECHO_ITS ---
Patient Info Name: Derrell Noriega Age: 68 years : 1955 Gender: Male Ht: 77 in Wt: 225 lbs BSA: 2.36 m2 HR: 105 bpm BP: 107 / 71 mmHg Heart Rhythm: Atrial Fibrillation Technical Quality: Fair Exam Date: 03/07/2023 8:21 AM Exam Location: [facility] Patient Status: Inpatient Admit Date: 03/04/2023 Staff Ordering Physician: Luci Portillo DO Payment Specialist: Crystal Platt RDCS Attending Provider: Kari Robertson MD Referring Physician: Bandar MAGALLON; Exam Type: CA echo doppler color flow Study Info Indications - new fib Complete two-dimensional, color flow and Doppler transthoracic echocardiogram is performed. Summary 1. Technically difficult study. 2. Left ventricular chamber dimension is normal. 3. Left ventricular systolic function is hyperdynamic, estimated at >70%. 4. There is moderately increased left ventricular wall thickness. 5. The left ventricular diastolic function is indeterminate. 6. Right ventricular systolic function is mildly reduced with relative sparing of the RV apex suggestive of McConnells sign which can be observed with pulmonary embolism and/or RV infarction. Clinical correlation advised. 7. There is trace mitral valve regurgitation. 8. There is mild tricuspid valve regurgitation. 9. No pulmonary hypertension, estimated pulmonary arterial systolic pressure is 29 mmHg. Left Ventricle Left ventricular chamber dimension is normal. Left ventricular systolic function is hyperdynamic, estimated at >70%. There is moderately increased left ventricular wall thickness. The left ventricular diastolic function is indeterminate. Technically difficult study. Right Ventricle Right ventricular chamber dimension is normal. Right ventricular systolic function is mildly reduced with relative sparing of the RV apex suggestive of McConnells sign which can be observed with pulmonary embolism and/or RV infarction. Clinical correlation advised. Left Atria Left atrial chamber dimension is normal. Right Atria Right atrial chamber dimension is normal. Aortic Valve The aortic valve is probable trileaflet. There is no aortic valve stenosis. There is no aortic valve regurgitation. Pulmonic Valve The pulmonic valve is not well visualized. Mitral Valve The mitral valve has thickened leaflets. There is trace mitral valve regurgitation. The mitral valve annulus is mildly calcified. Tricuspid Valve The tricuspid valve leaflets are normal. There is mild tricuspid valve regurgitation. No pulmonary hypertension, estimated pulmonary arterial systolic pressure is 29 mmHg. Pericardium/Pleural The pericardium appears normal. There is no pericardial effusion. Aorta The aortic root size at the sinus of Valsalva is normal. Left Ventricular Outflow Tract Name Value Normal LVOT 2D LVOT Diameter 2.1 cm LVOT Doppler LVOT Peak Gradient 7 mmHg LVOT Mean Gradient 3 mmHg LVOT VTI 18 cm LVOT VTI/AV VTI Ratio 1.1 LVOT Stroke Volume 63 ml LVOT CO 5.7 l/min LVOT CI 2.4 l/min/
[2023-03-07] MEDS: METOPROLOL TARTRATE INJ 5 MG/5 ML VIAL IV PUSH (00:06)
--- NOTE | 2023-03-07 00:51 | PM.EVENT ---
Event Note Event Note Event Note: 03/07/2023 around midnight Nursing staff called me a earlier in the evening. The patient had flipped from sinus rhythm into AFib RVR. They obtained an EKG which confirmed patient was in atrial fibrillation. I gave an order for IV Lopressor 5 mg x1. Nursing staff called me back just before midnight telling me now patient was still in AFib RVR. I ordered a 2nd dose of IV Lopressor 5 mg and went to evaluate the patient. Nursing staff told me the patient had had an episode of hypoxia requiring 3 L nasal cannula and maintain oxygen saturations of in 93-95%. When I went to evaluate the patient he did tell me that he had untreated obstructive sleep apnea in the patient had just received Dilaudid prior to onset of hypoxia. However, I had already ordered a stat chest x-ray. Chest x-ray was personally reviewed. Patient had opacities in bilateral lower lung mack concerning for atelectasis versus pneumonia. He does have a history of asthma and questionable history of possible interstitial lung disease. I have requested radiology review the x-ray. The patient has had markedly decreased urine output for 2 days despite being 12 L fluid positive since admission. Patient only has small amount of urine in the Lowe bag at the time of my evaluation. The patient denies having any shortness of breath, chest pain or palpitations. He does report that he sees a custodial services manager as outpatient and may have been told in the past a has a history of irregular heart rate. He is unsure if he has been told that if it was atrial fibrillation or not. He has been having low-grade temperatures since this afternoon and a UA did not suggest acute infection. The patient reports that he has had that a couple of small and amounts of stool today but denies passing any flatulence. He does reports that he does not feel good. On exam patient has decreased breath sounds at the bases, irregular heart rate ranging from 110-130 with 2+ bilateral radial pulses no JVD noted on exam. The patient is mildly diaphoretic and warm to touch. Abdomen is distended and significantly tender to even light palpation, hypoactive bowel sounds are noted small amount of urine noted in the Lowe catheter bag that is dark aakash in color. Patient is acutely ill-appearing. The patient's arms appear mildly edematous. Assessment and plan: AFib RVR-- new onset versus possible history of paroxysmal atrial fibrillation. EKG personally reviewed. Likely a result of acute postoperative stress complicated by patient's long-term history of untreated obstructive sleep apnea leading to an increased risk for atrial fibrillation. I did try to give the patient 2 doses of IV Lopressor in hopes of converting the patient in the acute setting. After 2nd dose of Cardizem the patient's blood pressures were soft in the 90s systolic. Patient did have some minimal improvement in his heart rate from the 130s and 140s down to the 120s. But no persistent response. Will transfer the patient to the intermediate unit for Cardizem drip. Echocardiogram has been ordered for a.m.. A renal function panel and magnesium has already been ordered for a.m. labs. Hypoxia--likely multifactorial due to patient's obstructive sleep apnea, atelectasis due to abdominal pain and with concomitant use of Dilaudid. Pneumonia could also be possible. I am awaiting radiologic interpretation of chest x-ray. Fever--possibly due to atelectasis and part of routine postoperative course. UA had positive nitrates but did not have any bacteria or other indicators of infection. Chest x-ray on my review could be consistent with atelectasis but I suspect some component of pulmonary vascular congestion. Will request Radiology interpretation before starting antibiotics as the patient's white count appears relatively stable. Acute kidney injury--renal ultrasound was unremarkable. FENA was consistent with pre renal cause. Patient's IV fluids we
--- NOTE | 2023-03-07 01:28 | PC.NURSE ---
Transferred by bed to room 200. Report given to
[2023-03-07] MEDS: dilTIAZem 100 MG/100 ML 100 MG/100 ML BAG IV CONT (02:02)
--- NOTE | 2023-03-07 02:25 | PC.NURSE ---
patient transferred to room 200 with all his belongings. Report received from Ambar MENDOZA. Neymar/Shanon. O2 @3L/NC. 20g IV started in left forearm and cardizem drip started. See Assessments for assessment on transfer.
[2023-03-07 04:23] LABS: Hematocrit 35.3 % (42.0-52.0); Hemoglobin 11.2 g/dL (14.0-18.0); Mean Corpuscular HGB Conc 31.7 g/dl (32-36); Mean Corpuscular Hemoglobin 30.6 pg (26-34); Mean Corpuscular Volume 96.4 fl (80-100); Mean Platelet Volume 11.5 fl (7.4-10.4); Platelet Count Result 180 k/mm3 (150-375); Red Blood Count 3.66 M/mm3 (4.6-6.20); Red Cell Distribution Width 13.7 % (11.5-14.5); White Blood Count 10.8 K/mm3 (4.5-10.0)
[2023-03-07 04:39] LABS: Albumin Level 2.7 g/dL (3.5-5.1); Anion Gap 6 mmol/L (8-16); Blood Urea Nitrogen 58 mg/dL (9-20); Calcium 7.6 mg/dL (8.4-10.2); Carbon Dioxide 27 mmol/L (22-30); Chloride 100 mmol/L (98-107); Estimated CRCL calculation 61 ml/min; Estimated Glomerular Filt Rate 55; Glucose 119 mg/dL (65-110); Phosphorus 3.3 mg/dL (2.5-4.5); Potassium 3.5 mmol/L (3.4-5.0); Sodium 133 mmol/L (137-145)
[2023-03-07 04:53] LABS: Band Neutrophils Percent 45 % (0-6); Eosinophils Absolute Manual 0.21 K/mm3 (0.02-0.5); Eosinophils Percent Manual 2 % (0-4); Lymphocytes Absolute Manual 0.21 K/mm3 (1.1-4.5); Monocytes Absolute Manual 0.86 K/mm3 (0.1-0.90); Monocytes Percent Manual 8 % (3-9); Neutrophils Percent Manual 43 % (46-73); Total Cells Counted 100
[2023-03-07 04:54] LABS: Burr Cells 2+ (NORMAL); Platelet Clumps Present; Platelet Estimate Adequate (Adequate); Poikilocytosis 2+ (NORMAL); Schistocytes None Seen (NORMAL)
--- NOTE | 2023-03-07 05:20 | PC.NURSE ---
Spoke with Dr. Portillo to notify her that che[place]h result was unresponsive . Also, received orders to increase Diltiazem x2, currently running at 15mg/hr with a HR between 100's and 120's. BP 107/71. afebrile. Educated patient of his condition change and medications and treatments. Educated patient regarding scd's and incentive spirometer and splinting. Patient continues to refuse scd's. 1500 on incentive spirometer x10.
[2023-03-07] MEDS: LACTATED RINGERS 1,000 ML 100 ML IV CONT (06:09)
[2023-03-07] MEDS: HYDROmorphone HCL INJ (*CRX) 1 MG/ML SYR IV PUSH ×5 (06:25→21:45)
[2023-03-07] MEDS: PIPERACILLN/TAZ 3.375GM/NS50ML 3.375 GM/50 ML BAG IVPB ×3 (07:40→18:28)
[2023-03-07] MEDS: HYDROcodone/acetaminophen (*CRX) 5-325 MG TABLET 1 TAB PO (08:55)
[2023-03-07] MEDS: HEPARIN SODIUM 5,000 UNITS/ML VIAL 5000 UNITS SUB-Q (08:55)
[2023-03-07] MEDS: PANTOPRAZOLE SODIUM IV 40 MG VIAL IV PUSH (08:55)
[2023-03-07] MEDS: FLUTICASONE/UMECLIDIN/VILANTER 100-62.5-25 MCG ELLIPTA 1 PUFF INHALATION (08:57)
[2023-03-07] MEDS: dilTIAZem 100 MG/100 ML 100 MG/100 ML BAG 15 MG IV CONT ×2 (09:46→16:27)
--- NOTE | 2023-03-07 10:00 | PM.IMPN ---
Progress Note: A&P Assessment and Plan (1) Sepsis: Code(s): A41.9 - Sepsis, unspecified organism Status: Acute Assessment and Plan: Patient has developed a sepsis symptoms with low-grade fever, tachycardia, hypoxia and now bandemia. Consider pneumonia with chest x-ray showing diffuse lung disease. Heme probably has underlying I LD which may confuse is picture. This also may be related to pulmonary edema. Blood cultures have been collected and he has been started on Zosyn. UA on 03/05/2023 was not consistent with UTI. Consider intra-abdominal process as well although clinical exam seems to be mildly improved today. Will proceed with CT of the chest, abdomen and pelvis without contrast given his recent acute kidney injury. Continue IV antibiotics. Case discussed with family in the room per patient permission. Will also discuss with daughter who is a physician. Check for COVID. (2) Atrial fibrillation with rapid ventricular response: Code(s): I48.91 - Unspecified atrial fibrillation Status: Acute Assessment and Plan: Patient developed atrial fibrillation with RVR overnight. He was moved to the IMU. He was started on diltiazem drip. Start heparin drip. No chest pain but EKG does show anterior lateral ST-T wave changes. Will check troponins. Echocardiogram has been ordered. Check TSH. Consider VTE. Unable to get a CTA of the chest but will do lower extremity Dopplers. Cardiology consult. Make patient NPO for possible cardioversion. Discussed with surgery and case discussed. He was okay with heparin bolus then drip. (3) Hypoxia: Code(s): R09.02 - Hypoxemia Status: Acute Assessment and Plan: Patient became hypoxic overnight and is now on 3 L. He probably could be weaned given that he was 98% SpO2. Will follow-up on the CT of the chest without contrast. Consider starting Lasix if blood pressure remains stable. (4) KATHERINE (acute kidney injury): Code(s): N17.9 - Acute kidney failure, unspecified Status: Acute Assessment and Plan: Patient with normal baseline creatinine. He has developed acute kidney injury since admission. His BUN was elevated on admission to suggest he may have been dehydrated given the nausea and vomiting so this could be prerenal. Consider also contrast induced from contrast CT studies. He was also on hydrochlorothiazide and ibuprofen prior to admission as well as an ARB which all could be contributing to acute kidney injury as well. Creatinine climbed to 2.1. UA noted but not consistent with UTI but does show 2+ protein and RBC with trace blood (Lowe trauma?). Urine eosinophils were negative. FENa 0.5% to suggest prerenal etiology of his acute kidney injury. He may be 3rd spacing fluid into his abdomen. CT scan did show small volume ascites on admission. Renal US showing no acute findings with mild free pelvic fluid. He was treated with IV fluids. Creatinine has improved to 1.3 today. Will stop IV fluids and monitor blood pressure. Concern that may have pulmonary edema. (5) Incarcerated incisional hernia: Code(s): K43.0 - Incisional hernia with obstruction, without gangrene Status: Acute Assessment and Plan: Patient presented with small-bowel obstruction secondary to incarcerated right abdominal port site hernia. He underwent exploratory laparoscopy with reduction of the incarcerated right abdominal port site hernia and primary repair of the incisional hernia on 03/04/2023. He has tolerated the procedure well. He still has abdominal pain. Treatment as above. Further care per primary team. (6) SBO (small bowel obstruction): Code(s): K56.609 - Unspecified intestinal obstruction, unspecified as to partial versus complete obstruction Status: Acute Assessment and Plan: Patient had evidence of small-bowel obstruction on admission related to incarcerated hernia. He had an NG tube in mary
--- NOTE | 2023-03-07 10:28 | PM.PNGS ---
Progress Note: A&P Assessment and Plan (1) Incarcerated incisional hernia: Code(s): K43.0 - Incisional hernia with obstruction, without gangrene Status: Acute Assessment and Plan: exam largely benign, +bowel fxn, slowly restart diet, encourage OOB/IS Subjective Subjective Date/Time Seen: 03/07/23 10:28 Interval history: feels ok, c/o bilateral groin pain, having small, loose BMs Review of Systems Review of Systems: All systems reviewed & are unremarkable except as noted in HPI and below Exam Const: General: cooperative, no acute distress and uncomfortable Resp: Auscultation: clear to auscultation bilaterally Cardio: Rate: tachycardic Rhythm: abnormal rhythm GI: Inspection: normal to inspection, distended and incision GI Palp: Yes abdominal tenderness, Yes Soft to palpation, Yes Tenderness to palpation present (GI), No Guarding due to palpation present (GI) and No Rigid due to palpation Objective Data Vital Signs Vital Signs: Vital Signs - 24 hr 03/06/23 12:04 03/06/23 14:00 03/06/23 16:00 Temperature 37.8 C H Pulse Rate 106 H 104 H 116 H Respiratory Rate 18 Blood Pressure 116/58 L Pulse Oximetry 90 Oxygen Delivery Oxygen Flow Rate 03/06/23 18:00 03/06/23 19:56 03/06/23 20:45 Temperature 36.7 C 37.4 C Pulse Rate 109 H 107 H 107 H Respiratory Rate 18 18 Blood Pressure 125/63 125/68 Pulse Oximetry 93 92 Oxygen Delivery Oxygen Flow Rate 03/06/23 20:45 03/06/23 22:49 03/06/23 23:16 Temperature 37.7 C H Pulse Rate 107 H 150 H 150 H Respiratory Rate 18 20 Blood Pressure 133/90 Pulse Oximetry 92 92 Oxygen Delivery Room Air Oxygen Flow Rate 03/06/23 23:51 03/07/23 00:06 03/07/23 00:22 Temperature 37.4 C Pulse Rate 146 H 147 H Respiratory Rate 20 Blood Pressure 111/70 92/55 L Pulse Oximetry 93 Oxygen Delivery Oxygen Flow Rate 03/07/23 00:32 03/06/23 23:51 03/07/23 00:00 Temperature Pulse Rate 137 H Respiratory Rate Blood Pressure 86/62 L Pulse Oximetry 94 Oxygen Delivery Nasal Cannula Oxygen Flow Rate 3 03/06/23 22:41 03/07/23 02:02 03/07/23 01:30 Temperature 36.7 C Pulse Rate 149 H 137 H 67 Respiratory Rate 18 Blood Pressure 124/98 H Pulse Oximetry 95 Oxygen Delivery Oxygen Flow Rate 03/07/23 02:55 03/07/23 02:00 03/07/23 02:00 Temperature Pulse Rate 139 H 146 H 146 H Respiratory Rate Blood Pressure Pulse Oximetry 95 Oxygen Delivery Nasal Cannula Oxygen Flow Rate 3 03/07/23 03:40 03/07/23 04:00 03/07/23 04:07 Temperature 37.1 C Pulse Rate 133 H 107 H 107 H Respiratory Rate 20 20 Blood Pressure 107/71 Pulse Oximetry 98 98 Oxygen Delivery Nasal Cannula Oxygen Flow Rate 3 03/07/23 06:00 03/07/23 08:00 03/07/23 08:52 Temperature Pulse Rate 112 H 112 H Respiratory Rate 20 Blood Pressure Pulse Oximetry 98 98 Oxygen Delivery Nasal Cannula Nasal Cannula Oxygen Flow Rate 3 3 03/07/23 08:00 03/07/23 09:33 03/07/23 09:46 Temperature 36.6 C Pulse Rate 114 H 112 H 112 H Respiratory Rate 16 Blood Pressure 108/58 L 108/58 L 108/58 L Pulse Oximetry 98 Oxygen Delivery Oxygen Flow Rate Intake/Output Intake/Output: Intake & Output 03/04/23 03/05/23 03/06/23 03/07/23 23:59 23:59 23:59 23:59 Intake Total 5620 4050 4740 1390 Output Total 500 730 375 700 Balance 5120 3320 4365 690 Meds/Results Medications: Active Medications Generic Name Dose Route Start Last Admin Trade Name Freq PRN Reason Stop Dose Admin Acetaminophen 650 mg 03/06/23 19:08 Acetaminophen 325 Mg Tablet PO Q6H PRN Mild Pain (1-3) or Fever Hydrocodone Bitart/Acetaminophen 1 tab 03/06/23 19:08 03/07/23 08:55 Hydrocodone/Acetaminophen (*Crx) 5-325 Mg Tablet PO 1 tab Q6H PRN Administration Pain Rated 4-6 Albuterol 1 puff 03/05/23 19:22 Albuterol Sulfate (*Sp) Inhaler INHALATION Q
--- NOTE | 2023-03-07 11:35 | PM.CNCAR ---
Assessment and Plan Assessment and plan (1) Atrial fibrillation with rapid ventricular response: Code(s): I48.91 - Unspecified atrial fibrillation Status: Acute Assessment and Plan: New diagnosis atrial fibrillation with rapid ventricular response currently well controlled on diltiazem infusion 15 milligrams/hour. Given patient's relative hemodynamic stability, tolerance of atrial fibrillation in heart rate control I would not recommend proceeding with cardioversion which would require sedation and unacceptable risk for hypotension with resulting hemodynamic instability and or respiratory compromise. If heart rate refractory and/or corresponding hypertension felt secondary to AFib with RVR cardioversion to be performed on systemic anticoagulation. If hypotension becomes a limiting factor discontinuation of diltiazem in favor amiodarone infusion at least on a short-term basis would be preferred management. Discussed at bedside today the risks and benefits in this regard. However, as patient is stable this time will continue diltiazem infusion at 15 milligrams/hour without change in addition to systemic anticoagulation with heparin infusion. Patient is critically ill. Will continue to monitor closely. Continue telemetry. Monitor renal function electrolytes closely. I discussed the pathophysiology, management strategies in general as well as embolic stroke risk associated atrial fibrillation. We also discussed the likelihood of recurrence eaten for resolved this episode of care the future. I spent 63 minutes in the care of this patient including discussion at bedside, examination, chart review, medical decision-making, and documentation. Will review cardiac records from his outside top stop attacher when available as requested. (2) Hypoxia: Code(s): R09.02 - Hypoxemia Status: Acute Assessment and Plan: Patient has developed hypoxic respiratory compromise but does not appear to be secondary to decompensated heart failure despite lower extremity edema which is likely 3rd spacing. He is hyperdynamic LV systolic function which would not be unexpected given atrial tachyarrhythmia, acute critical illness and or intravascular volume depletion. Continue O2 supplementation. Hold off on diuretic therapy given renal insufficiency, recent relative hypotension and concern for sepsis. Discussed with Dr. Hurtado regarding potential concern for pulmonary embolism given suggestive Hills sign by echocardiogram particularly in light of his complicated postoperative course and hospitalization he is at high risk for thromboembolic complications. Discussed at length with the patient and his fiancee at bedside. Agree with initiation of systemic anticoagulation but need to monitor for bleeding complications closely including stability of underlying hematoma noted on CT scan which has been present since subsequent evaluation 02/28/2023 after hernia repair. (3) Sepsis: Code(s): A41.9 - Sepsis, unspecified organism Status: Acute Assessment and Plan: Patient is a concerning pattern with low-grade fever, tachycardia, hypoxia and bandemia. Patient has been started on Zosyn IV. Cultures pending. Picture is highly concerning for bacterial infection abdominal source remains high concerning although can not exclude underlying pneumonia. Further management per surgery and primary service. Patient also has a very high procalcitonin and CRP which also corroborate concerning underlying bacterial infection and corresponding inflammation. (4) KATHERINE (acute kidney injury): Code(s): N17.9 - Acute kidney failure, unspecified Status: Acute Assessment and Plan: Creatinine peaked at 2.1 improved 1.3 with elevated BUN appears most likely consistent with prerenal azotemia in setting of acute illness. Continue appropriate IV fluid support, nutritional status. Avoid nephrotoxic agents. Avoid excessive hypotension. Monitor BMP
[2023-03-07 11:56] LABS: Lactic Acid Reflex 1.1 mmol/L (0.7-2.0)
[2023-03-07 12:02] LABS: INR 1.2; Prothrombin Time 15.6 Seconds (11.1-14.7)
[2023-03-07 12:03] LABS: Partial Thromboplastin Time 36.6 SECONDS (22.3-36.8)
[2023-03-07 12:09] LABS: Troponin I 0.014 ng/mL (0.000-0.034)
[2023-03-07 12:15] LABS: Procalcitonin 18.6 ng/mL
[2023-03-07 12:26] LABS: CRP > 45.0 mg/dL (<1.0)
--- NOTE | 2023-03-07 13:40 | PCCCNOTE ---
On 03/07/23, the student, [Jessica Carpenter], provided care and completed [facility] documentation on this patient. I have reviewed the student's documentation and agree with the findings.
[2023-03-07] MEDS: HEPARIN SOD/D5W 100 UNITS/ML 25,000 UNITS/250 ML BAG 15 UNITS IV CONT (13:46)
[2023-03-07] MEDS: DEXTROSE 5%/0.9% SOD CHL 1,000 ML 75 ML IV CONT (13:53)
[2023-03-07 14:37] LABS: Troponin I 0.013 ng/mL (0.000-0.034)
[2023-03-07 14:47] LABS: Free T4 Free Thyroxine Reflex 1.15 ng/dL (0.78-2.19)
[2023-03-07 16:06] LABS: Total Triiodothyronine (T3) 0.67 NG/ML (0.97-1.69)
[2023-03-07 18:02] LABS: Troponin I 0.012 ng/mL (0.000-0.034)
--- NOTE | 2023-03-07 18:46 | PC.NURSE ---
Right calf DVT reported to Dr. Hurtado, no new orders at this time. Will continue to monitor closely.
[2023-03-07 20:25] LABS: Partial Thromboplastin Time 52.5 SECONDS (22.3-36.8)
[2023-03-07] MEDS: HEPARIN SODIUM 5,000 UNITS/ML VIAL 8500 UNITS IV PUSH (21:42)
[2023-03-08] VITALS (22 sets, daily range): BP systolic 110–128; BP diastolic 61–77; PULSE 85–108; RESP 12–20; TEMP 36.3–36.9; O2SAT 92–96
[2023-03-08] MEDS: dilTIAZem 100 MG/100 ML 100 MG/100 ML BAG 15 MG IV CONT ×4 (00:04→21:50)
[2023-03-08] MEDS: PIPERACILLN/TAZ 3.375GM/NS50ML 3.375 GM/50 ML BAG IVPB ×5 (00:07→23:40)
[2023-03-08] MEDS: HYDROmorphone HCL INJ (*CRX) 1 MG/ML SYR IV PUSH ×5 (00:14→21:53)
[2023-03-08] MEDS: DEXTROSE 5%/0.9% SOD CHL 1,000 ML 75 ML IV CONT ×2 (03:46→17:19)
[2023-03-08 04:17] LABS: Basophils Absolute Auto 0.1 K/mm3 (0.0-0.1); Basophils Percent Auto 0.9 % (0.2-1.2); Eosinophils Absolute Auto 0.7 K/mm3 (0-0.3); Eosinophils Percent Auto 6.2 % (0-4.4); Hematocrit 32.9 % (42.0-52.0); Hemoglobin 10.6 g/dL (14.0-18.0); Immature Granulocyte Absolute 0.08 K/mm3 (0.00-0.031); Immature Granulocyte Percent A 0.7 % (0-0.5); Lymphocytes Absolute Auto 0.88 K/mm3 (0.9-3.2); Mean Corpuscular HGB Conc 32.2 g/dl (32-36); Mean Corpuscular Hemoglobin 31.1 pg (26-34); Mean Corpuscular Volume 96.5 fl (80-100); Mean Platelet Volume 11.2 fl (7.4-10.4); Monocytes Percent Auto 8.6 % (2.6-8.5); Neutrophils Absolute Auto 8.3 K/mm3 (1.3-6.7); Neutrophils Percent Auto 75.6 % (45.5-73.1); Platelet Count Result 186 k/mm3 (150-375); Red Blood Count 3.41 M/mm3 (4.6-6.20); Red Cell Distribution Width 13.8 % (11.5-14.5)
[2023-03-08 04:27] LABS: Alanine Aminotransferase 16 U/L (6-50); Albumin Level 2.6 g/dL (3.5-5.1); Alkaline Phosphatase 64 U/L (38-126); Anion Gap 5 mmol/L (8-16); Aspartate Amino Transferase 31 U/L (17-59); Bilirubin,Total 1.1 mg/dL (0.2-1.3); Blood Urea Nitrogen 50 mg/dL (9-20); Calcium 7.6 mg/dL (8.4-10.2); Carbon Dioxide 29 mmol/L (22-30); Chloride 102 mmol/L (98-107); Estimated CRCL calculation 72 ml/min; Estimated Glomerular Filt Rate > 60; Glucose 140 mg/dL (65-110); Magnesium 2.2 mg/dL (1.6-2.3); Phosphorus 3.4 mg/dL (2.5-4.5); Potassium 3.6 mmol/L (3.4-5.0); Sodium 136 mmol/L (137-145)
[2023-03-08 04:32] LABS: Partial Thromboplastin Time 74.9 SECONDS (22.3-36.8)
[2023-03-08] MEDS: HEPARIN SOD/D5W 100 UNITS/ML 25,000 UNITS/250 ML BAG 19 UNITS IV CONT (04:38)
[2023-03-08] MEDS: HYDROcodone/acetaminophen (*CRX) 5-325 MG TABLET 1 TAB PO ×3 (09:12→23:46)
[2023-03-08] MEDS: PANTOPRAZOLE SODIUM IV 40 MG VIAL IV PUSH (09:13)
--- NOTE | 2023-03-08 09:37 | PCSTNOTE ---
Attempted bedside swallowing evaluation. Per nurse, patient may have surgery order coming so may need to be NPO. Requested that we wait a few hours and then check back to see whether patient can have bedside swallow eval today.
[2023-03-08] MEDS: FLUTICASONE/UMECLIDIN/VILANTER 200-62.5-25 MCG ELLIPTA 1 PUFF INHALATION (09:44)
[2023-03-08 10:26] LABS: Partial Thromboplastin Time 70.7 SECONDS (22.3-36.8)
[2023-03-08] MEDS: HEPARIN SODIUM 5,000 UNITS/ML VIAL 4000 UNITS IV PUSH (10:35)
--- NOTE | 2023-03-08 11:06 | PM.IMPN ---
Progress Note: A&P Assessment and Plan (1) Sepsis: Code(s): A41.9 - Sepsis, unspecified organism Status: Acute Assessment and Plan: Patient has developed a sepsis symptoms with low-grade fever, tachycardia, hypoxia and now bandemia.?Chest CT showing extensive bibasilar consolidation with hyperdense material with tree-in-bud opacities RML. Consider aspiration pneumonia. Also showing posible SBO with transition point right mid-abdomen near the previously seen hernia. He probably has underlying ILD which explains some of these findings. He has been started on Zosyn. UA on 03/05/2023 was not consistent with UTI.?BCx NGTD. COVID pending. He was vomiting prior to admission so may have aspirated at that time. Able to wean O2 down. Follow. (2) Atrial fibrillation with rapid ventricular response: Code(s): I48.91 - Unspecified atrial fibrillation Status: Acute Assessment and Plan: Patient developed atrial fibrillation with RVR overnight. He was moved to the IMU. He was started on diltiazem drip and heparin drip. No chest pain but EKG does show anterior lateral ST-T wave changes. Troponin negative x3. Echo showing EF 70% with indeterminate diastolic function, reduced RV function with sparing of the apex c/w McConnells sign. LE doppler positive for DVT below the knee. May have PE causing the AFib. TSH okay. Hold on CTA of the chest for now. Cardiology consulted and appreciate their input. (3) Hypoxia: Code(s): R09.02 - Hypoxemia Status: Acute Assessment and Plan: Patient became hypoxic requiring 3 L. He was weaned to 2L. Follow (4) KATHERINE (acute kidney injury): Code(s): N17.9 - Acute kidney failure, unspecified Status: Acute Assessment and Plan: Patient with normal baseline creatinine. He has developed acute kidney injury since admission. His BUN was elevated on admission to suggest he may have been dehydrated given the nausea and vomiting so this could be prerenal. Consider also contrast induced from contrast CT studies. He was also on hydrochlorothiazide and ibuprofen prior to admission as well as an ARB which all could be contributing to acute kidney injury as well. Creatinine climbed to 2.1. UA noted but not consistent with UTI but does show 2+ protein and RBC with trace blood ([place] trauma?). Urine eosinophils were negative. FENa 0.5% to suggest prerenal etiology of his acute kidney injury. He may be 3rd spacing fluid into his abdomen. Renal US showing no acute findings with mild free pelvic fluid. He was treated with IV fluids. Creatinine has improved to 1.1 today. Follow (5) Incarcerated incisional hernia: Code(s): K43.0 - Incisional hernia with obstruction, without gangrene Status: Acute Assessment and Plan: Patient presented with small-bowel obstruction secondary to incarcerated right abdominal port site hernia. He underwent exploratory laparoscopy with reduction of the incarcerated right abdominal port site hernia and primary repair of the incisional hernia on 03/04/2023. He has tolerated the procedure well. He still has abdominal pain. Treatment as above. Further care per primary team. Discussed (6) SBO (small bowel obstruction): Code(s): K56.609 - Unspecified intestinal obstruction, unspecified as to partial versus complete obstruction Status: Acute Assessment and Plan: Patient had evidence of small-bowel obstruction on admission related to incarcerated hernia. He had an NG tube in place but this is been removed. He is having stools today. Follow-up imaging studies show possible recurrent SBO related to site of incarcerated hernia. Could be a localized ileus. Discussed with surgery with plans for a SBFT. (7) Postoperative hematoma: Status: Acute Assessment and Plan: CT scan on admission showed stable hematoma around the area the left inguinal hernia repair. Repeat imaging showing stabnl
--- NOTE | 2023-03-08 11:28 | PM.PNCARD ---
Progress Note: A&P Assessment and Plan (1) Atrial fibrillation with rapid ventricular response: Code(s): I48.91 - Unspecified atrial fibrillation Status: Acute Assessment and Plan: At this time patient is tolerating IV diltiazem drip at 15 mg an hour. Currently also on IV heparin drip. Heart rates controlled. Remains atrial fibrillation. If patient develops hypotension then we can switch him to IV amiodarone. (2) Hypoxia: Code(s): R09.02 - Hypoxemia Status: Acute Assessment and Plan: Patient has developed hypoxic respiratory compromise but does not appear to be secondary to decompensated heart failure despite lower extremity edema which is likely 3rd spacing. He is hyperdynamic LV systolic function which would not be unexpected given atrial tachyarrhythmia, acute critical illness and or intravascular volume depletion. Continue O2 supplementation. Hold off on diuretic therapy given renal insufficiency, recent relative hypotension and concern for sepsis. Given positive Goldstein sign on echo, patient was started yesterday on IV heparin drip as well until pulmonary embolism is ruled out (3) Sepsis: Code(s): A41.9 - Sepsis, unspecified organism Status: Acute Assessment and Plan: Patient is a concerning pattern with low-grade fever, tachycardia, hypoxia and bandemia. Patient has been started on Zosyn IV. Cultures pending. Picture is highly concerning for bacterial infection abdominal source remains high concerning although can not exclude underlying pneumonia. Further management per surgery and primary service. Patient also has a very high procalcitonin and CRP which also corroborate concerning underlying bacterial infection and corresponding inflammation. (4) KATHERINE (acute kidney injury): Code(s): N17.9 - Acute kidney failure, unspecified Status: Acute Assessment and Plan: Is improving. Creatinine peaked at 2.1. Likely secondary to dehydration and surgery. (5) SBO (small bowel obstruction): Code(s): K56.609 - Unspecified intestinal obstruction, unspecified as to partial versus complete obstruction Status: Acute Assessment and Plan: Per primary service and surgery. Concerning clinical picture given patient's trajectory. (6) H/O inguinal hernia repair: Code(s): Z98.890 - Other specified postprocedural states; Z87.19 - Personal history of other diseases of the digestive system Status: Acute Assessment and Plan: As above. Continue postoperative management per surgery. Subjective Date/time seen: Date of service 03/08/23 11:28 Patient is seen for atrial fibrillation with RVR post laparoscopic abdominal surgery Interval history: 03/08/2023-resting on bed. Feels his abdomen is more distended than yesterday. Not able to pass gas. Not eating. Heart rate in AFib uncontrolled. Remains on diltiazem 15 mg an hour and IV heparin drip Review of Systems Review of Systems: Remainder of the review of systems is otherwise negative aside from that noted in the HPI. All systems reviewed & are unremarkable except as noted in HPI and below Constitutional: Constitutional: Reports as per HPI and Reports no additional constitutional complaints Eyes: Eyes: Reports as per HPI and Reports no additional eye complaints ENT: Reports system reviewed and no additional complaints, except as documented and Reports as per HPI Cardiovascular: Cardiovascular: Reports as per HPI and Reports no additional cardiovascular complaints Respiratory: Respiratory: Reports as per HPI and Reports no additional respiratory complaints Gastrointestinal: Gastrointestinal: Reports as per HPI and Reports no additional gastrointestinal complaints Genitourinary: Genitourinary: Reports no additional male genitourinary complaints and Reports as per HPI Musculoskeletal: Musculoskeletal: Reports no additional musculoskeletal complaints and Reports as per HPI Integume
--- NOTE | 2023-03-08 12:44 | PM.PNGS ---
Progress Note: A&P Assessment and Plan (1) SBO (small bowel obstruction): Code(s): K56.609 - Unspecified intestinal obstruction, unspecified as to partial versus complete obstruction Status: Acute Assessment and Plan: Patient is having small bowel movements. Question is whether he has possible partial small-bowel obstruction due to swelling in the area of incarcerated small bowel or stricture formation. He does not appear to have any compromise ischemic or bowel or perforation of the bowel. We will go ahead and get a water sign small-bowel follow-through series today. Hopefully the contrast will go completely to the colon without significant obstruction and then we can advance his diet as tolerated. Will follow. Subjective Subjective Date/Time Seen: 03/08/23 12:44 Interval history: Patient states that this morning he felt better with this afternoon he is feeling worse with some crampy abdominal pain. He did have a small bowel movement this morning. Currently denies any nausea. Apparently he was atrial fibrillation with RVR and is now rate controlled. CT scan chest abdomen pelvis yesterday suggested possible small bowel obstruction. I reviewed the CT scan this morning with our radiologist house today and he did not see obvious transition point and more of a small-bowel ileus. Review of Systems Review of Systems: The remainder of the review of systems to include constitutional, HEENT, cardiovascular, respiratory, GI, , integumentary, musculoskeletal, endocrine, immunologic, hematologic, psychiatric, and neurologic are all negative except for which is mentioned above in the HPI. Exam Const: Other: Mild distress complaining of some crampy abdominal pain. GI: Other: Abdomen is soft and mildly distended incisions were dry and intact evidence of wound infections. Patient does have some bowel sounds. Psych: Mental Status: mental status grossly normal Objective Data Vital Signs Vital Signs: Vital Signs - 24 hr 03/07/23 14:00 03/07/23 16:27 03/07/23 16:27 Temperature Pulse Rate 96 96 96 Respiratory Rate Blood Pressure 115/62 115/62 Pulse Oximetry Oxygen Delivery Oxygen Flow Rate 03/07/23 16:00 03/07/23 16:00 03/07/23 16:00 Temperature 36.5 C Pulse Rate 105 H 99 Respiratory Rate 18 Blood Pressure 117/68 Pulse Oximetry 95 96 Oxygen Delivery Nasal Cannula Oxygen Flow Rate 2 03/07/23 18:00 03/07/23 20:00 03/07/23 20:00 Temperature 36.6 C Pulse Rate 98 106 H 106 H Respiratory Rate 20 20 Blood Pressure 112/70 Pulse Oximetry 93 93 Oxygen Delivery Nasal Cannula Oxygen Flow Rate 2 03/07/23 20:00 03/07/23 22:00 03/07/23 23:58 Temperature 36.8 C Pulse Rate 97 99 88 Respiratory Rate 20 Blood Pressure 111/61 Pulse Oximetry 95 Oxygen Delivery Oxygen Flow Rate 03/08/23 00:04 03/08/23 00:00 03/08/23 00:00 Temperature Pulse Rate 88 88 108 H Respiratory Rate 20 Blood Pressure 111/61 Pulse Oximetry 95 Oxygen Delivery Nasal Cannula Oxygen Flow Rate 2 03/08/23 01:47 03/08/23 04:00 03/08/23 04:00 Temperature 36.3 C L Pulse Rate 96 90 85 Respiratory Rate 20 Blood Pressure 128/69 Pulse Oximetry 95 Oxygen Delivery Oxygen Flow Rate 03/08/23 04:00 03/08/23 05:39 03/08/23 08:00 Temperature 36.9 C Pulse Rate 85 94 93 Respiratory Rate 20 12 Blood Pressure 117/67 Pulse Oximetry 95 93 Oxygen Delivery Nasal Cannula Oxygen Flow Rate 2 03/08/23 09:11 03/08/23 08:00 03/08/23 12:00 Temperature 36.7 C Pulse Rate 88 98 Respiratory Rate 20 Blood Pressure 123/69 Pulse Oximetry 92 96 Oxygen Delivery Nasal Cannula Oxygen Flow Rate 2 Intake/Output Intake/Output: Intake & Output 03/05/23 03/06/23 03/07/23 03/08/23 23:59 23:59 23:59 23:59 Intake Total 4050 4740 1690 1450 Output Total 560 986 4052 550 Balance 3320 4365 340 900 Meds/Result
[2023-03-08] MEDS: LEVALBUTEROL NEB 1.25 MG/3 ML 0.63 MG INHALATION ×2 (13:35→21:15)
[2023-03-08 13:46] LABS: Influenza A QL RT-PCR Negative (Negative); Influenza B QL RT-PCR Negative (Negative); RSV RNA, RT-PCR Negative (Negative); SARS-CoV-2 RNA PCR Negative (Negative)
--- NOTE | 2023-03-08 14:22 | PCSTNOTE ---
Re: bedside swallowing evaluation. Nursing confirmed NPO status pending small bowel series. Will evaluate tomorrow if NPO status is changed.
[2023-03-08] MEDS: ONDANSETRON INJ 4 MG/2 ML VIAL IV PUSH ×2 (15:44→21:59)
[2023-03-08 16:51] LABS: Partial Thromboplastin Time 81.5 SECONDS (22.3-36.8)
[2023-03-08] MEDS: HEPARIN SOD/D5W 100 UNITS/ML 25,000 UNITS/250 ML BAG 21 UNITS IV CONT (17:19)
[2023-03-08 23:18] LABS: Partial Thromboplastin Time 102.7 SECONDS (22.3-36.8)
[2023-03-09] VITALS (24 sets, daily range): BP systolic 121–135; BP diastolic 61–83; PULSE 80–108; RESP 16–20; TEMP 36.4–37.1; O2SAT 93–100
[2023-03-09] MEDS: LEVALBUTEROL NEB 1.25 MG/3 ML 0.63 MG INHALATION ×4 (03:27→20:02)
[2023-03-09] MEDS: dilTIAZem 100 MG/100 ML 100 MG/100 ML BAG 15 MG IV CONT ×3 (04:34→18:50)
[2023-03-09] MEDS: HYDROmorphone HCL INJ (*CRX) 1 MG/ML SYR IV PUSH ×2 (04:50→23:57)
[2023-03-09 05:08] LABS: Basophils Absolute Auto 0.1 K/mm3 (0.0-0.1); Basophils Percent Auto 0.7 % (0.2-1.2); Eosinophils Absolute Auto 0.3 K/mm3 (0-0.3); Eosinophils Percent Auto 2.5 % (0-4.4); Hematocrit 34.7 % (42.0-52.0); Immature Granulocyte Absolute 0.12 K/mm3 (0.00-0.031); Immature Granulocyte Percent A 1.1 % (0-0.5); Lymphocytes Absolute Auto 1.09 K/mm3 (0.9-3.2); Lymphocytes Percent Auto 10.4 % (18.3-44.2); Mean Corpuscular HGB Conc 31.7 g/dl (32-36); Mean Corpuscular Hemoglobin 31.1 pg (26-34); Mean Platelet Volume 11.2 fl (7.4-10.4); Monocytes Absolute Auto 0.7 K/mm3 (0.1-0.6); Neutrophils Absolute Auto 8.2 K/mm3 (1.3-6.7); Neutrophils Percent Auto 78.3 % (45.5-73.1); Platelet Count Result 189 k/mm3 (150-375); Red Blood Count 3.54 M/mm3 (4.6-6.20); Red Cell Distribution Width 13.9 % (11.5-14.5); White Blood Count 10.5 K/mm3 (4.5-10.0)
[2023-03-09 05:29] LABS: Albumin Level 2.9 g/dL (3.5-5.1); Anion Gap 4 mmol/L (8-16); Blood Urea Nitrogen 38 mg/dL (9-20); Calcium 7.8 mg/dL (8.4-10.2); Carbon Dioxide 31 mmol/L (22-30); Chloride 107 mmol/L (98-107); Estimated CRCL calculation 79 ml/min; Estimated Glomerular Filt Rate > 60; Glucose 152 mg/dL (65-110); Magnesium 2.5 mg/dL (1.6-2.3); Phosphorus 2.8 mg/dL (2.5-4.5); Potassium 3.2 mmol/L (3.4-5.0); Sodium 142 mmol/L (137-145)
[2023-03-09] MEDS: HEPARIN SOD/D5W 100 UNITS/ML 25,000 UNITS/250 ML BAG 21 UNITS IV CONT ×2 (05:32→18:48)
[2023-03-09] MEDS: PIPERACILLN/TAZ 3.375GM/NS50ML 3.375 GM/50 ML BAG IVPB ×4 (05:34→23:58)
[2023-03-09 06:11] LABS: Partial Thromboplastin Time 77.5 SECONDS (22.3-36.8)
[2023-03-09] MEDS: FLUTICASONE/UMECLIDIN/VILANTER 200-62.5-25 MCG ELLIPTA 1 PUFF INHALATION (08:09)
[2023-03-09] MEDS: DEXTROSE 5%/0.9% SOD CHL 1,000 ML 75 ML IV CONT (08:27)
[2023-03-09] MEDS: PANTOPRAZOLE SODIUM IV 40 MG VIAL IV PUSH (08:27)
[2023-03-09] MEDS: POTASSIUM CHLORIDE 20 MEQ PACKET (FOR LIQUID) PO (08:27)
[2023-03-09] MEDS: HYDROcodone/acetaminophen (*CRX) 5-325 MG TABLET 1 TAB PO ×2 (08:28→19:43)
--- NOTE | 2023-03-09 10:36 | PM.PNGS ---
Progress Note: A&P Assessment and Plan (1) SBO (small bowel obstruction): Code(s): K56.609 - Unspecified intestinal obstruction, unspecified as to partial versus complete obstruction Status: Acute Assessment and Plan: Small-bowel obstruction secondary to incarcerated port site incisional hernia. This has been resolved operatively. He continues to have a postoperative ileus as noted by water-soluble small bowel follow-through study yesterday. He is having multiple bowel movements at this time. Have gone ahead and advanced his diet to full liquids some Ensure supplements. If he tolerates that then we will likely advance to solid food tomorrow. Continue supportive care. Up in chair as much as possible today. Subjective Subjective Date/Time Seen: 03/09/23 10:36 Interval history: Patient is feeling better this morning. Much less abdominal pain. He has had multiple diarrhea stool since his small-bowel follow-through series yesterday. It showed no evidence of a small-bowel obstruction and likely just a dynamic ileus. White blood cell count is normal. He denies any nausea. He remains afebrile. Potassium is low at 3.2 and so he was given oral potassium supplement by Dr. Hurtado and I have also ordered IV bolus of potassium as well. Review of Systems Review of Systems: The remainder of the review of systems to include constitutional, HEENT, cardiovascular, respiratory, GI, , integumentary, musculoskeletal, endocrine, immunologic, hematologic, psychiatric, and neurologic are all negative except for which is mentioned above in the HPI. Exam Const: General: comfortable and no acute distress GI: Other: Abdomen is soft and nondistended. Incisions are healing without any redness or drainage. Good bowel sounds are noted. Abdomen is benign. Psych: Mental Status: mental status grossly normal Affect: normal affect Objective Data Vital Signs Vital Signs: Vital Signs - 24 hr 03/08/23 12:00 03/08/23 13:36 03/08/23 13:45 Temperature 36.7 C Pulse Rate 98 98 100 Respiratory Rate 20 18 18 Blood Pressure 123/69 Pulse Oximetry 96 Oxygen Delivery Oxygen Flow Rate 03/08/23 14:18 03/08/23 14:18 03/08/23 12:00 Temperature Pulse Rate 101 H 101 H 101 H Respiratory Rate Blood Pressure 123/69 123/69 Pulse Oximetry Oxygen Delivery Oxygen Flow Rate 03/08/23 14:00 03/08/23 16:00 03/08/23 16:00 Temperature 36.8 C Pulse Rate 98 92 90 Respiratory Rate 12 Blood Pressure 110/67 Pulse Oximetry 94 Oxygen Delivery Oxygen Flow Rate 03/08/23 18:00 03/08/23 20:00 03/08/23 21:17 Temperature 36.6 C Pulse Rate 93 88 Respiratory Rate 20 Blood Pressure 121/77 Pulse Oximetry 95 93 Oxygen Delivery Nasal Cannula Oxygen Flow Rate 3 03/08/23 21:17 03/08/23 21:50 03/08/23 20:00 Temperature Pulse Rate 107 H 105 H 105 H Respiratory Rate 20 20 Blood Pressure 121/77 Pulse Oximetry 95 Oxygen Delivery Nasal Cannula Oxygen Flow Rate 2 03/08/23 23:41 03/08/23 23:49 03/08/23 20:00 Temperature 36.4 C L Pulse Rate 98 98 104 H Respiratory Rate 20 20 Blood Pressure 117/75 Pulse Oximetry 95 95 Oxygen Delivery Nasal Cannula Oxygen Flow Rate 2 03/08/23 22:00 03/09/23 00:00 03/09/23 01:48 Temperature Pulse Rate 107 H 102 H 94 Respiratory Rate Blood Pressure Pulse Oximetry Oxygen Delivery Oxygen Flow Rate 03/08/23 21:27 03/09/23 03:29 03/09/23 03:45 Temperature 36.4 C Pulse Rate 103 H 101 H 98 Respiratory Rate 20 18 18 Blood Pressure 135/79 Pulse Oximetry 100 Oxygen Delivery Oxygen Flow Rate 03/09/23 03:39 03/09/23 04:00 03/09/23 04:34 Temperature Pulse Rate 98 100 98 Respiratory Rate 18 Blood Pressure 135/79 Pulse Oximetry 100 Oxygen Delivery Nasal Cannula Oxygen Flow Rate 2 03/09/23 06:00 03/09/23 08:12 03/09/23 08:13 Temperature Pulse Rate 89
--- NOTE | 2023-03-09 12:04 | PM.IMPN ---
Progress Note: A&P Assessment and Plan (1) Sepsis: Code(s): A41.9 - Sepsis, unspecified organism Status: Acute Assessment and Plan: Patient has developed a sepsis symptoms with low-grade fever, tachycardia, hypoxia and now bandemia.?Chest CT showing extensive bibasilar consolidation with hyperdense material with tree-in-bud opacities RML. Consider aspiration pneumonia. Also showing posible SBO with transition point right mid-abdomen near the previously seen hernia. He probably has underlying ILD which explains some of these findings. He has been started on Zosyn. UA on 03/05 was not consistent with UTI.?BCx NGTD. COVID negative. He was vomiting prior to admission so may have aspirated at that time. Speech therapy evaluation shows no concerns for aspiration. Able to wean O2 down. WBC better and sepsis symptoms waning. Follow. (2) Atrial fibrillation with rapid ventricular response: Code(s): I48.91 - Unspecified atrial fibrillation Status: Acute Assessment and Plan: Patient developed atrial fibrillation with RVR. He was moved to the IMU. He was started on diltiazem drip and heparin drip. No chest pain but EKG does show anterior lateral ST-T wave changes. Troponin negative x3. Echo showing EF 70% with indeterminate diastolic function, reduced RV function with sparing of the apex c/w McConnells sign. LE doppler positive for RLE DVT below the knee. May have PE causing the AFib. TSH okay. Remains on Heparin and Diltiazem drip. Hold on CTA of the chest for now. Cardiology consulted and appreciate their input. Will need CTA chest at some point. (3) Pneumonia: Code(s): J18.9 - Pneumonia, unspecified organism Status: Acute Assessment and Plan: Patient became hypoxic requiring 3 L. Related to above. Suspect he has PNA. Could be aspiration present on admission related to his vomiting episodes just prior to admission. He feels better. He has been weaned to 2L. Continue IV abx. Follow (4) DVT (deep venous thrombosis): Code(s): I82.409 - Acute embolism and thrombosis of unspecified deep veins of unspecified lower extremity Status: Acute Assessment and Plan: Lower extremity venous Doppler shows DVT involving the right gastrocnemius, posterior tibial and peroneal veins. DVT below the knee are less likely the cause PE but concern that patient does have PE causing the Goldstein sign, hypoxia and atrial fibrillation. He will need a CTA of his chest at some point. Continue heparin. Unable to determine if DVT was present on admission or not. (5) Hypoxia: Code(s): R09.02 - Hypoxemia Status: Acute Assessment and Plan: As above (6) KATHERINE (acute kidney injury): Code(s): N17.9 - Acute kidney failure, unspecified Status: Acute Assessment and Plan: Patient with normal baseline creatinine. He developed acute kidney injury since admission. His BUN was elevated on admission to suggest he may have been dehydrated given the nausea and vomiting so this could be prerenal. Consider also contrast induced from contrast CT studies. He was also on hydrochlorothiazide, ARB and ibuprofen prior to admission all of which could be contributing to acute kidney injury as well. Creatinine climbed to 2.1. UA noted but not consistent with UTI but does show 2+ protein and RBC with trace blood (Lowe trauma?). Urine eosinophils were negative. FENa 0.5% to suggest prerenal etiology of his acute kidney injury. He may be 3rd spacing fluid into his abdomen. Renal US showing no acute findings with mild free pelvic fluid. He was treated with IV fluids. Creatinine trended down and normalized. Follow (7) SBO (small bowel obstruction): Code(s): K56.609 - Unspecified intestinal obstruction, unspecified as to partial versus complete obstruction Status: Acute Assessment and Plan: Patient had evidence of small-bowel obstruction on admission related to
[2023-03-09] MEDS: KCL 20 MEQ/SW 100 ML 100 ML 50 MEQ IVPB (12:15)
--- NOTE | 2023-03-09 12:28 | PM.PNCARD ---
Progress Note: A&P Assessment and Plan (1) Atrial fibrillation with rapid ventricular response: Code(s): I48.91 - Unspecified atrial fibrillation Status: Acute Assessment and Plan: At this time patient is tolerating IV diltiazem drip at 15 mg an hour. Currently also on IV heparin drip. Heart rates controlled. Remains atrial fibrillation. If patient develops hypotension then we can switch him to IV amiodarone. Replenish potassium (2) DVT (deep venous thrombosis): Code(s): I82.409 - Acute embolism and thrombosis of unspecified deep veins of unspecified lower extremity Status: Acute Assessment and Plan: Doppler ultrasound positive for DVT right lower extremity. Continue IV heparin. Switch to oral anticoagulant when able to tolerate pills. (3) Hypoxia: Code(s): R09.02 - Hypoxemia Status: Acute Assessment and Plan: Patient has developed hypoxic respiratory compromise but does not appear to be secondary to decompensated heart failure despite lower extremity edema which is likely 3rd spacing. He is hyperdynamic LV systolic function which would not be unexpected given atrial tachyarrhythmia, acute critical illness and or intravascular volume depletion. Continue O2 supplementation. Hold off on diuretic therapy given renal insufficiency, recent relative hypotension and concern for sepsis. Given positive Goldstein sign on echo, patient was started on IV heparin drip . Doppler ultrasound positive for DVT in right lower extremity. (4) Sepsis: Code(s): A41.9 - Sepsis, unspecified organism Status: Acute Assessment and Plan: Patient is a concerning pattern with low-grade fever, tachycardia, hypoxia and bandemia. Patient has been started on Zosyn IV. Cultures pending. Picture is highly concerning for bacterial infection abdominal source remains high concerning although can not exclude underlying pneumonia. Further management per surgery and primary service. Patient also has a very high procalcitonin and CRP which also corroborate concerning underlying bacterial infection and corresponding inflammation. (5) KATHERINE (acute kidney injury): Code(s): N17.9 - Acute kidney failure, unspecified Status: Acute Assessment and Plan: Is improving. Creatinine is 1 today Creatinine peaked at 2.1. Likely secondary to dehydration and surgery. Currently receiving IV fluids (6) SBO (small bowel obstruction): Code(s): K56.609 - Unspecified intestinal obstruction, unspecified as to partial versus complete obstruction Status: Acute Assessment and Plan: Per primary service and surgery. Concerning clinical picture given patient's trajectory. (7) H/O inguinal hernia repair: Code(s): Z98.890 - Other specified postprocedural states; Z87.19 - Personal history of other diseases of the digestive system Status: Acute Assessment and Plan: As above. Continue postoperative management per surgery. Subjective Date/time seen: Date of service 03/09/23 12:28 Interval history: Date of service 03/09/2023-he is now drinking clear liquids. Had 3 episodes of diarrhea. Heart rate is controlled. Remains in AFib Exam Narrative: General: gentleman appearing ill, diaphoretic lying supine in bed no apparent distress but intermittently uncomfortable otherwise Well developed, alert and oriented x2-3 somewhat malaised and answering questions appropriately. He was otherwise pleasant and cooperative. Head: atraumatic, normocephalic Eyes: EOM intact, sclerae anicteric, conjunctivae unremarkable Ears/Nose: external inspection of ears and nose were grossly normal nasal cannula noted. NG tube. Mouth/Throat: oral mucosa pink and moist Neck: supple, normal range of motion, no jugular venous distention or carotid bruits, thyroid nonpalpable, trachea midline. Cardiac: Irregularly irregular rate and rhythm, normal S1-S2, early grade 2-3
[2023-03-09] MEDS: FUROSEMIDE INJ 40 MG/4 ML VIAL 20 MG IV PUSH (12:55)
[2023-03-10] VITALS (22 sets, daily range): BP systolic 100–139; BP diastolic 58–80; PULSE 74–124; RESP 16–20; TEMP 36.4–36.8; O2SAT 91–97
[2023-03-10] MEDS: dilTIAZem 100 MG/100 ML 100 MG/100 ML BAG 15 MG IV CONT ×4 (01:13→20:26)
[2023-03-10] MEDS: LEVALBUTEROL NEB 1.25 MG/3 ML 0.63 MG INHALATION ×4 (02:28→20:31)
[2023-03-10] MEDS: HYDROmorphone HCL INJ (*CRX) 1 MG/ML SYR IV PUSH ×2 (03:32→06:17)
[2023-03-10] MEDS: ONDANSETRON INJ 4 MG/2 ML VIAL IV PUSH ×4 (03:38→23:26)
[2023-03-10] MEDS: HEPARIN SOD/D5W 100 UNITS/ML 25,000 UNITS/250 ML BAG 21 UNITS IV CONT ×2 (05:35→18:00)
[2023-03-10] MEDS: PIPERACILLN/TAZ 3.375GM/NS50ML 3.375 GM/50 ML BAG IVPB ×4 (05:36→23:25)
[2023-03-10 06:19] LABS: Hematocrit 34.5 % (42.0-52.0); Hemoglobin 11.2 g/dL (14.0-18.0); Mean Corpuscular HGB Conc 32.5 g/dl (32-36); Mean Corpuscular Hemoglobin 30.6 pg (26-34); Mean Corpuscular Volume 94.3 fl (80-100); Mean Platelet Volume 10.6 fl (7.4-10.4); Platelet Count Result 246 k/mm3 (150-375); Red Blood Count 3.66 M/mm3 (4.6-6.20); Red Cell Distribution Width 13.9 % (11.5-14.5); White Blood Count 12.4 K/mm3 (4.5-10.0)
[2023-03-10 06:32] LABS: Partial Thromboplastin Time 96.6 SECONDS (22.3-36.8)
[2023-03-10 06:43] LABS: Anion Gap 5 mmol/L (8-16); Blood Urea Nitrogen 29 mg/dL (9-20); Calcium 7.7 mg/dL (8.4-10.2); Carbon Dioxide 30 mmol/L (22-30); Chloride 104 mmol/L (98-107); Estimated CRCL calculation 87 ml/min; Estimated Glomerular Filt Rate > 60; Glucose 140 mg/dL (65-110); Potassium 2.7 mmol/L (3.4-5.0); Sodium 139 mmol/L (137-145)
[2023-03-10] MEDS: FLUTICASONE/UMECLIDIN/VILANTER 200-62.5-25 MCG ELLIPTA 1 PUFF INHALATION (07:00)
[2023-03-10] MEDS: PANTOPRAZOLE 40 MG TABLET PO (07:49)
[2023-03-10] MEDS: POTASSIUM CHLORIDE 20 MEQ TABLET.ER 40 MEQ PO (08:53)
--- NOTE | 2023-03-10 09:03 | PM.IMPN ---
Progress Note: A&P Assessment and Plan (1) Sepsis: Code(s): A41.9 - Sepsis, unspecified organism Status: Acute Assessment and Plan: Patient developed sepsis symptoms with low-grade fever, tachycardia, hypoxia and bandemia.?Chest CT showing extensive bibasilar consolidation with hyperdense material with tree-in-bud opacities RML. Consider aspiration pneumonia. He was vomiting prior to admission so may have aspirated at that time. Also showing possible SBO with transition point right mid-abdomen near the previously seen hernia so consider ischemic bowel. He probably has underlying ILD which explains some of these findings. He was started on Zosyn. UA on 03/05 was not consistent with UTI.?BCx NGTD. COVID negative. No wound infection. Speech therapy evaluation shows no concerns for aspiration. Able to wean O2 off. WBC up again. Continue IV Zosyn. If worsens, consider adding Vanco. Check MRSA nasal swab Clinical picture is waxing and waning. Follow. (2) Atrial fibrillation with rapid ventricular response: Code(s): I48.91 - Unspecified atrial fibrillation Status: Acute Assessment and Plan: Patient developed atrial fibrillation with RVR. He was moved to the IMU and started on diltiazem and heparin drip. No chest pain but EKG does show anterior lateral ST-T wave changes. Troponin negative x3. Echo showing EF 70% with indeterminate diastolic function, reduced RV function with sparing of the apex c/w McConnells sign. LE doppler positive for RLE DVT below the knee. May have PE causing the AFib. TSH okay. Remains on Heparin and Diltiazem drip. Continue to hold on CTA of the chest for now. Cardiology consulted and appreciate their input. Transition to oral rate controlling agents once it is felt he can tolerate oral (3) Pneumonia: Code(s): J18.9 - Pneumonia, unspecified organism Status: Acute Assessment and Plan: Patient became hypoxic requiring 3 L. Related to above. Suspect he has PNA. Could be aspiration present on admission related to his vomiting episodes just prior to admission. He feels worse pertaining to bloating but now off O2. Continue IV abx. Follow (4) DVT (deep venous thrombosis): Code(s): I82.409 - Acute embolism and thrombosis of unspecified deep veins of unspecified lower extremity Status: Acute Assessment and Plan: Lower extremity venous Doppler shows DVT involving the right gastrocnemius, posterior tibial and peroneal veins. DVT below the knee are less likely the cause PE but concern that patient does have PE causing the Goldstein sign, hypoxia and atrial fibrillation. He will need a CTA of his chest at some point. Continue heparin. Unable to determine if DVT was present on admission or not. (5) Hypoxia: Code(s): R09.02 - Hypoxemia Status: Acute Assessment and Plan: As above. Hypoxia related to PNA but may be fluid overload as well and better after Lasix. Repeat Lasix as tolerated and once potassium better. (6) KATHERINE (acute kidney injury): Code(s): N17.9 - Acute kidney failure, unspecified Status: Acute Assessment and Plan: Patient with normal baseline creatinine. He developed acute kidney injury since admission. His BUN was elevated on admission to suggest he may have been dehydrated given the nausea and vomiting so this could be prerenal. Consider also contrast induced from contrast CT studies. He was also on hydrochlorothiazide, ARB and ibuprofen prior to admission all of which could be contributing to acute kidney injury as well. Creatinine climbed to 2.1. UA noted but not consistent with UTI but does show 2+ protein and RBC with trace blood ([place]e trauma?). Urine eosinophils were negative. FENa 0.5% to suggest prerenal etiology of his acute kidney injury. He may be 3rd spacing fluid into his abdomen. Renal US showing no acute findings with mild free pelvic fluid. He was treated with IV fluids.
--- NOTE | 2023-03-10 10:07 | PM.PNGS ---
Progress Note: A&P Assessment and Plan (1) SBO (small bowel obstruction): Code(s): K56.609 - Unspecified intestinal obstruction, unspecified as to partial versus complete obstruction Status: Acute Assessment and Plan: Patient does not seem to have a mechanical small bowel obstruction as a small bowel series no transition point and there was slow transit of contrast to the colon at over 5hours. He was having multiple bowel movements yesterday which is likely a contrast which has passed it was colon. He likely continues to have an adynamic ileus. His potassium is very low today at 2.7 will give him IV boluses of potassium to get that increased. This could be contributing to an ileus. His magnesium level is normal 2.0 and so I will not give him more magnesium. May consider giving a suppository try to stimulate some passage of flatus. May also need to consider placement of a PICC line and starting on PPN or TPN since he is not wanting to take much p.o. intake at this time. Subjective Subjective Date/Time Seen: 03/10/23 10:07 Interval history: Patient feels more bloated today. Had diarrhea yesterday after small-bowel series but has not had any bowel movements since last night. She has not passed any flatus since last night. He is given a full liquid diet but has not ate much of it due to complaints of having some nausea. White blood count 54590. Obstructive series this morning is pending. Exam GI: Other: Abdomen is soft and mildly distended. Incisions are healing well without wound complications. Bowel sounds are noted. Mild diffuse tenderness but no rebound. No guarding. Objective Data Vital Signs Vital Signs: Vital Signs - 24 hr 03/09/23 12:00 03/09/23 12:00 03/09/23 12:00 Temperature 36.8 C Pulse Rate 87 91 Respiratory Rate 16 Blood Pressure 134/83 Pulse Oximetry 95 95 Oxygen Delivery Room Air 03/09/23 13:55 03/09/23 14:02 03/09/23 14:00 Temperature Pulse Rate 92 102 H 103 H Respiratory Rate 18 18 Blood Pressure Pulse Oximetry Oxygen Delivery 03/09/23 16:00 03/09/23 16:00 03/09/23 16:00 Temperature 37.1 C Pulse Rate 86 101 H Respiratory Rate 20 Blood Pressure 132/68 Pulse Oximetry 95 96 Oxygen Delivery Room Air 03/09/23 18:00 03/09/23 20:03 03/09/23 20:04 Temperature Pulse Rate 96 94 Respiratory Rate 18 Blood Pressure Pulse Oximetry 93 Oxygen Delivery Room Air 03/09/23 20:08 03/09/23 20:00 03/09/23 20:00 Temperature 37.0 C Pulse Rate 100 99 101 H Respiratory Rate 18 18 Blood Pressure 132/80 Pulse Oximetry 95 Oxygen Delivery 03/09/23 22:00 03/10/23 00:00 03/10/23 01:13 Temperature 36.8 C Pulse Rate 99 112 H 94 Respiratory Rate 18 Blood Pressure 135/72 Pulse Oximetry 91 Oxygen Delivery 03/10/23 00:00 03/10/23 02:00 03/10/23 02:29 Temperature Pulse Rate 93 84 92 Respiratory Rate 18 Blood Pressure Pulse Oximetry Oxygen Delivery 03/10/23 04:00 03/10/23 04:00 03/10/23 06:00 Temperature 36.5 C Pulse Rate 102 H 98 92 Respiratory Rate 18 Blood Pressure 126/62 Pulse Oximetry 93 Oxygen Delivery 03/10/23 07:00 03/10/23 07:00 03/10/23 07:10 Temperature Pulse Rate 74 74 76 Respiratory Rate 16 16 16 Blood Pressure Pulse Oximetry 94 Oxygen Delivery Room Air 03/10/23 07:46 03/10/23 08:00 03/10/23 08:00 Temperature 36.4 C Pulse Rate 99 105 H 105 H Respiratory Rate 18 18 Blood Pressure 124/74 Pulse Oximetry 95 95 Oxygen Delivery Room Air 03/10/23 10:00 Temperature Pulse Rate 124 H Respiratory Rate Blood Pressure Pulse Oximetry Oxygen Delivery Intake/Output Intake/Output: Intake & Output 03/07/23 03/08/23 03/09/23 03/10/23 23:59 23:59 23:59 23:59 Intake Total 1690 3000 3600 1762 Output Total 1350 1200 3920 650 Balance 340 1800 -320 1112 Meds/Results Medications: Active Medications Gener
--- NOTE | 2023-03-10 11:08 | PM.PNCARD ---
Progress Note: A&P Assessment and Plan (1) Atrial fibrillation with rapid ventricular response: Code(s): I48.91 - Unspecified atrial fibrillation Status: Acute Assessment and Plan: At this time patient is tolerating IV diltiazem drip at 15 mg an hour. Currently also on IV heparin drip. Heart rates controlled. Remains atrial fibrillation. Replenish potassium. Significant hypokalemia today (2) DVT (deep venous thrombosis): Code(s): I82.409 - Acute embolism and thrombosis of unspecified deep veins of unspecified lower extremity Status: Acute Assessment and Plan: Doppler ultrasound positive for DVT right lower extremity. Continue IV heparin. Switch to oral anticoagulant when able to tolerate pills. Tolerating no evidence of bleeding (3) Hypoxia: Code(s): R09.02 - Hypoxemia Status: Acute Assessment and Plan: Patient has developed hypoxic respiratory compromise but does not appear to be secondary to decompensated heart failure despite lower extremity edema which is likely 3rd spacing. He is hyperdynamic LV systolic function which would not be unexpected given atrial tachyarrhythmia, acute critical illness and or intravascular volume depletion. Continue O2 supplementation. Hold off on diuretic therapy given renal insufficiency, recent relative hypotension and concern for sepsis. Given positive Goldstein sign on echo, patient was started on IV heparin drip . Doppler ultrasound positive for DVT in right lower extremity. (4) Sepsis: Code(s): A41.9 - Sepsis, unspecified organism Status: Acute Assessment and Plan: Patient is a concerning pattern with low-grade fever, tachycardia, hypoxia and bandemia. Patient has been started on Zosyn IV. Cultures pending. Picture is highly concerning for bacterial infection abdominal source remains high concerning although can not exclude underlying pneumonia. Further management per surgery and primary service. Patient also has a very high procalcitonin and CRP which also corroborate concerning underlying bacterial infection and corresponding inflammation. White cell count today is higher. (5) KATHERINE (acute kidney injury): Code(s): N17.9 - Acute kidney failure, unspecified Status: Acute Assessment and Plan: Is improving. Creatinine is 1 today Creatinine peaked at 2.1. Normalized. continue fluid resuscitation (6) SBO (small bowel obstruction): Code(s): K56.609 - Unspecified intestinal obstruction, unspecified as to partial versus complete obstruction Status: Acute Assessment and Plan: Per primary service and surgery. Concerning clinical picture given patient's trajectory. (7) H/O inguinal hernia repair: Code(s): Z98.890 - Other specified postprocedural states; Z87.19 - Personal history of other diseases of the digestive system Status: Acute Assessment and Plan: As above. Continue postoperative management per surgery. Subjective Date/time seen: 03/10/23 11:08 Interval history: Date of service 03/09/2023-he is now drinking clear liquids. Had 3 episodes of diarrhea. Heart rate is controlled. Remains in AFib Date of service 03/10/2023-resting comfortably in bed. Heart rate controlled. Remains in AFib Review of Systems Review of Systems: Remainder of the review of systems is otherwise negative aside from that noted in the HPI. All systems reviewed & are unremarkable except as noted in HPI and below Constitutional: Constitutional: Reports as per HPI and Reports no additional constitutional complaints Eyes: Eyes: Reports as per HPI and Reports no additional eye complaints ENT: Reports system reviewed and no additional complaints, except as documented and Reports as per HPI Cardiovascular: Cardiovascular: Reports as per HPI and Reports no additional cardiovascular complaints Respiratory: Respiratory: Reports as per HPI and Reports no additional respiratory compl
[2023-03-10] MEDS: POTASSIUM CHLORIDE INJ 40 MEQ in SODIUM CHLORIDE 0.9% IV 500 ML 130 MEQ IVPB ×2 (11:21→16:33)
[2023-03-10 11:59] LABS: Potassium 2.8 mmol/L (3.4-5.0)
[2023-03-11] VITALS (29 sets, daily range): BP systolic 119–143; BP diastolic 60–79; PULSE 77–122; RESP 18–22; TEMP 35.8–36.4; O2SAT 92–100; BMI 27.1
[2023-03-11] MEDS: dilTIAZem 100 MG/100 ML 100 MG/100 ML BAG 15 MG IV CONT ×4 (02:36→21:50)
[2023-03-11] MEDS: LEVALBUTEROL NEB 1.25 MG/3 ML 0.63 MG INHALATION ×4 (02:54→20:32)
[2023-03-11 05:24] LABS: Basophils Absolute Auto 0.1 K/mm3 (0.0-0.1); Basophils Percent Auto 0.6 % (0.2-1.2); Eosinophils Absolute Auto 0.5 K/mm3 (0-0.3); Eosinophils Percent Auto 4.6 % (0-4.4); Hematocrit 32.5 % (42.0-52.0); Hemoglobin 10.4 g/dL (14.0-18.0); Immature Granulocyte Absolute 0.24 K/mm3 (0.00-0.031); Immature Granulocyte Percent A 2.3 % (0-0.5); Lymphocytes Absolute Auto 1.63 K/mm3 (0.9-3.2); Lymphocytes Percent Auto 15.7 % (18.3-44.2); Mean Corpuscular Hemoglobin 30.1 pg (26-34); Mean Corpuscular Volume 94.2 fl (80-100); Mean Platelet Volume 10.9 fl (7.4-10.4); Monocytes Absolute Auto 0.7 K/mm3 (0.1-0.6); Monocytes Percent Auto 6.3 % (2.6-8.5); Neutrophils Absolute Auto 7.3 K/mm3 (1.3-6.7); Neutrophils Percent Auto 70.5 % (45.5-73.1); Platelet Count Result 283 k/mm3 (150-375); Red Blood Count 3.45 M/mm3 (4.6-6.20); Red Cell Distribution Width 13.9 % (11.5-14.5); White Blood Count 10.4 K/mm3 (4.5-10.0)
[2023-03-11] MEDS: PIPERACILLN/TAZ 3.375GM/NS50ML 3.375 GM/50 ML BAG IVPB ×3 (05:24→17:56)
[2023-03-11] MEDS: HEPARIN SOD/D5W 100 UNITS/ML 25,000 UNITS/250 ML BAG 21 UNITS IV CONT ×2 (05:25→17:47)
[2023-03-11 05:49] LABS: Alanine Aminotransferase 21 U/L (6-50); Albumin Level 2.7 g/dL (3.5-5.1); Alkaline Phosphatase 86 U/L (38-126); Anion Gap 8 mmol/L (8-16); Aspartate Amino Transferase 31 U/L (17-59); Bilirubin,Total 1.1 mg/dL (0.2-1.3); Blood Urea Nitrogen 29 mg/dL (9-20); Calcium 7.3 mg/dL (8.4-10.2); Carbon Dioxide 25 mmol/L (22-30); Chloride 105 mmol/L (98-107); Estimated CRCL calculation 79 ml/min; Estimated Glomerular Filt Rate > 60; Glucose 115 mg/dL (65-110); Magnesium 1.9 mg/dL (1.6-2.3); Phosphorus 2.2 mg/dL (2.5-4.5); Sodium 138 mmol/L (137-145)
--- NOTE | 2023-03-11 07:00 | PC.NURSE ---
IV heparin at 21 mls/hr. MAR updated.
[2023-03-11] MEDS: FLUTICASONE/UMECLIDIN/VILANTER 200-62.5-25 MCG ELLIPTA 1 PUFF INHALATION (07:39)
[2023-03-11] MEDS: POTASSIUM CHLORIDE INJ 40 MEQ in SODIUM CHLORIDE 0.9% IV 500 ML 130 MEQ IVPB ×2 (08:41→17:50)
[2023-03-11] MEDS: MAGNESIUM SULF 1 GM/D5W 100 ML 1 GM/100 ML BAG IVPB (08:42)
[2023-03-11] MEDS: PANTOPRAZOLE 40 MG TABLET PO (08:42)
[2023-03-11] MEDS: POTASSIUM/PHOSPHORUS/SODIUM 1.5 GM PACKET 1 PACKET PO (08:56)
--- NOTE | 2023-03-11 09:08 | PM.PNCARD ---
Progress Note: A&P Assessment and Plan (1) Atrial fibrillation with rapid ventricular response: Code(s): I48.91 - Unspecified atrial fibrillation Status: Acute Assessment and Plan: Remains in atrial fibrillation with rate controlled on Diltiazem 15mg/hr. Will plan to shift to Diltiazem 360mg daily starting tomorrow a.m. Continue IV diltiazem until then. Continue a/c with heparin for now, can shift to Eliquis starting tomorrow a.m. as well if he continues to tolerate p.o. meds today. Replenish potassium. Continues to be hypokalemic today (2) DVT (deep venous thrombosis): Code(s): I82.409 - Acute embolism and thrombosis of unspecified deep veins of unspecified lower extremity Status: Acute Assessment and Plan: Doppler ultrasound positive for DVT right lower extremity. Continue IV heparin. Switch to oral anticoagulant tomorrow if he continues to tolerate pills today. (3) Hypoxia: Code(s): R09.02 - Hypoxemia Status: Acute Assessment and Plan: Patient has developed hypoxic respiratory compromise but does not appear to be secondary to decompensated heart failure despite lower extremity edema which is likely 3rd spacing. He is hyperdynamic LV systolic function which would not be unexpected given atrial tachyarrhythmia, acute critical illness and or intravascular volume depletion. Improving, on room air now. Given positive Goldstein sign on echo, patient was started on IV heparin drip . (4) Sepsis: Code(s): A41.9 - Sepsis, unspecified organism Status: Acute Assessment and Plan: Patient is a concerning pattern with low-grade fever, tachycardia, hypoxia and bandemia. On IV abx. Management per hospitalist service. (5) KATHERINE (acute kidney injury): Code(s): N17.9 - Acute kidney failure, unspecified Status: Acute Assessment and Plan: Improved. Creatinine 1.0 today. (6) SBO (small bowel obstruction): Code(s): K56.609 - Unspecified intestinal obstruction, unspecified as to partial versus complete obstruction Status: Acute Assessment and Plan: Per primary service and surgery. (7) H/O inguinal hernia repair: Code(s): Z98.890 - Other specified postprocedural states; Z87.19 - Personal history of other diseases of the digestive system Status: Acute Assessment and Plan: As above. Continue postoperative management per surgery. Subjective Date/time seen: 03/11/23 09:08 Interval history: Date of service 03/09/2023-he is now drinking clear liquids. Had 3 episodes of diarrhea. Heart rate is controlled. Remains in AFib Date of service 03/10/2023-resting comfortably in bed. Heart rate controlled. Remains in AFib Date of service 03/11/2023: Sitting up in the chair. States he is feeling better today. Had a small breakfast and took pills by mouth today and had mild abdominal pain but is feeling much better overall. Review of Systems Review of Systems: Remainder of the review of systems is otherwise negative aside from that noted in the HPI. All systems reviewed & are unremarkable except as noted in HPI and below Constitutional: Constitutional: Reports as per HPI and Reports no additional constitutional complaints Eyes: Eyes: Reports as per HPI and Reports no additional eye complaints ENT: Reports system reviewed and no additional complaints, except as documented and Reports as per HPI Cardiovascular: Cardiovascular: Reports as per HPI and Reports no additional cardiovascular complaints Respiratory: Respiratory: Reports as per HPI and Reports no additional respiratory complaints Gastrointestinal: Gastrointestinal: Reports as per HPI and Reports no additional gastrointestinal complaints Genitourinary: Genitourinary: Reports no additional male genitourinary complaints and Reports as per HPI Musculoskeletal: Musculoskeletal: Reports no additional musculoskeletal complaints and Reports as per HPI In
--- NOTE | 2023-03-11 11:26 | PM.PNGS ---
Progress Note: A&P Assessment and Plan (1) SBO (small bowel obstruction): Code(s): K56.609 - Unspecified intestinal obstruction, unspecified as to partial versus complete obstruction Status: Acute Assessment and Plan: Imaging more consistent with an adynamic ileus. Patient clinically improving after having multiple bowel movement. His abdominal pain, bloating, and nausea have significantly improved. No vomiting since yesterday. Potassium still low this morning, but being replaced with IV KCL. Magnesium 1.9 and he was given 1 gm IV this morning. Continue to replace electrolytes as needed and monitor labs as this can contribute to his ileus. Since he is eating better this morning, we will hold of on any PPN/TPN. Will advance to a regular diet. Encouraged to ambulate in the halls again today. Plan I have discussed the patient's case and plan of care with Dr. Lira. Subjective Subjective Date/Time Seen: 03/11/23 10:26 Post Op day: 7 (exploratory laparoscopy, reduction of incarcerated right abdominal port site hernia, primary repair incisional hernia) Patient reports: feels better, pain is less, tolerating liquids well, voiding w/o difficulty, flatus, bowel movement and afebrile Interval history: Chart reviewed since last seen. Patient sitting in the chair this morning. He reportedly ate over half of his full liquid breakfast tray. He reports having a good appetite this morning and overall feeling much better than the last few days. His bloating has improved. He denies nausea or no more vomiting since one episode yesterday. He has had 4-5 bowel movements overnight and this morning. He is actually eager to try solids. No other complaints at this time. He did well getting up to the chair and is planning to try ambulating this morning with staff. Exam Const: General: comfortable and no acute distress Orientation/consciousness: patient oriented x3 GI: Inspection: non-distended GI Palp: Yes Soft to palpation, Yes Tenderness to palpation present (GI) (mild incisional soreness) and No Guarding due to palpation present (GI) Auscultation: normal bowel sounds Other: RUQ incision with some diaz drainage under skin adhesive, which was peeled back, no purulent drainage or erythema, all incisions healing well. Remaining incisions dry and skin adhesive intact. No erythema. Extrem: General: no calf tenderness and edema (bilateral lower extremities 3+ pitting edema) Psych: Mental Status: mental status grossly normal Insight: Good insight present (Psych) Objective Data Vital Signs Vital Signs: Vital Signs - 24 hr 03/10/23 12:00 03/10/23 13:15 03/10/23 13:15 Temperature 97.5 F L Pulse Rate 101 H 82 80 Respiratory Rate 18 18 18 Blood Pressure 139/80 Pulse Oximetry 95 Oxygen Delivery 03/10/23 12:00 03/10/23 12:00 03/10/23 14:00 Temperature Pulse Rate 80 92 113 H Respiratory Rate 18 Blood Pressure Pulse Oximetry 95 Oxygen Delivery Room Air 03/10/23 16:00 03/10/23 16:00 03/10/23 18:00 Temperature 98.1 F Pulse Rate 77 118 H 110 H Respiratory Rate 18 Blood Pressure 119/78 Pulse Oximetry 97 Oxygen Delivery 03/10/23 19:50 03/10/23 20:33 03/10/23 20:40 Temperature 97.6 F Pulse Rate 105 H 94 95 Respiratory Rate 20 19 18 Blood Pressure 100/58 L Pulse Oximetry 96 Oxygen Delivery 03/10/23 20:00 03/10/23 22:00 03/10/23 23:25 Temperature 97.7 F Pulse Rate 104 H 98 105 H Respiratory Rate 18 Blood Pressure 128/67 Pulse Oximetry 96 Oxygen Delivery 03/11/23 00:00 03/11/23 02:54 03/11/23 03:01 Temperature Pulse Rate 77 89 88 Respiratory Rate 18 18 Blood Pressure Pulse Oximetry Oxygen Delivery 03/11/23 02:00 03/11/23 04:00 03/11/23 04:00 Temperature 97.6 F Pulse Rate 84 87 122 H Respiratory Rate 20 Blood Pressure 119/69 Pulse Oximetry 100 Oxygen Delivery 03/11/23 06:00 03/11/23 07:39 03/11/23 07:43 Temperature
[2023-03-11 12:13] LABS: Partial Thromboplastin Time 89.4 SECONDS (22.3-36.8)
--- NOTE | 2023-03-11 14:24 | PM.IMPN ---
Progress Note: A&P Assessment and Plan (1) Sepsis: Code(s): A41.9 - Sepsis, unspecified organism Status: Acute Assessment and Plan: Patient developed sepsis symptoms with low-grade fever, tachycardia, hypoxia and bandemia.?Chest CT showing extensive bibasilar consolidation with hyperdense material with tree-in-bud opacities RML. Consider aspiration pneumonia. He was vomiting prior to admission so may have aspirated at that time. Also showing possible SBO with transition point right mid-abdomen near the previously seen hernia so consider ischemic bowel. He probably has underlying ILD which explains some of these findings. He was started on Zosyn. UA on 03/05 was not consistent with UTI.?BCx NGTD. COVID negative. No wound infection. Speech therapy evaluation shows no concerns for aspiration. Able to wean O2 off. WBC down again. Continue IV Zosyn. If worsens, consider adding Vanco. BCx growing GPB felt to be contaminate Clinical picture better today Follow. (2) Atrial fibrillation with rapid ventricular response: Code(s): I48.91 - Unspecified atrial fibrillation Status: Acute Assessment and Plan: Patient developed atrial fibrillation with RVR. He was moved to the IMU and started on diltiazem and heparin drip. No chest pain but EKG does show anterior lateral ST-T wave changes. Troponin negative x3. Echo showing EF 70% with indeterminate diastolic function, reduced RV function with sparing of the apex c/w McConnells sign. LE doppler positive for RLE DVT below the knee. May have PE causing the AFib. TSH okay. Remains on Heparin and Diltiazem drip. Will need a CTA of the chest. Continue to hold for now Cardiology consulted and appreciate their input. Transition to oral rate controlling agents once it is felt he can tolerate oral (3) Pneumonia: Code(s): J18.9 - Pneumonia, unspecified organism Status: Acute Assessment and Plan: Patient became hypoxic requiring 3 L. Related to above. Suspect he has PNA. Could be aspiration present on admission related to his vomiting episodes just prior to admission. He feels better today. Continue IV abx. Follow (4) SBO (small bowel obstruction): Code(s): K56.609 - Unspecified intestinal obstruction, unspecified as to partial versus complete obstruction Status: Acute Assessment and Plan: Patient had evidence of small-bowel obstruction on admission related to incarcerated hernia. He had an NG tube in place but this has been removed. he was doing well until he condition deteriorated requiring him to move to IMU. Follow-up imaging studies show possible recurrent SBO related to site of incarcerated hernia. SBFT 03/08 shows slow progression of contrast throughout multiple dilated loops of small bowel reaching the ileum; obstructive series the next morning shows persistently dilated small bowel with slow passage of contrast but contrast does reach the colon. He was having multiple stools probably related to the contrast. He received Lasix 03/09 with good UOP but still positive fluid balance. Diet started and tolerating it better. His appetite has improved. Abdominal symptoms improving. Encouraged patient to walk. (5) DVT (deep venous thrombosis): Code(s): I82.409 - Acute embolism and thrombosis of unspecified deep veins of unspecified lower extremity Status: Acute Assessment and Plan: Lower extremity venous Doppler shows DVT involving the right gastrocnemius, posterior tibial and peroneal veins. DVT below the knee are less likely the cause PE but concern that patient does have PE causing the Goldstein sign, hypoxia and atrial fibrillation. He will need a CTA of his chest at some point. Continue heparin drip. Unable to determine if DVT was present on admission or not. (6) Hypoxia: Code(s): R09.02 - Hypoxemia Status: Acute Assessment and Plan: As above. Hypoxia related to PNA but may be fluid ov
[2023-03-11 15:36] LABS: Potassium 3.1 mmol/L (3.4-5.0)
[2023-03-11 17:51] LABS: Partial Thromboplastin Time 103.2 SECONDS (22.3-36.8)
[2023-03-11] MEDS: ACETAMINOPHEN 325 MG TABLET 650 MG PO (22:53)
[2023-03-12] VITALS (22 sets, daily range): BP systolic 107–144; BP diastolic 64–83; PULSE 73–113; RESP 16–20; TEMP 35.8–36.6; O2SAT 94–100
[2023-03-12] MEDS: PIPERACILLN/TAZ 3.375GM/NS50ML 3.375 GM/50 ML BAG IVPB ×3 (00:27→12:23)
[2023-03-12] MEDS: LEVALBUTEROL NEB 1.25 MG/3 ML 0.63 MG INHALATION ×2 (02:14→08:38)
[2023-03-12] MEDS: dilTIAZem 100 MG/100 ML 100 MG/100 ML BAG 15 MG IV CONT (04:08)
[2023-03-12 04:52] LABS: Hemoglobin 9.7 g/dL (14.0-18.0); Mean Corpuscular HGB Conc 32.3 g/dl (32-36); Mean Corpuscular Hemoglobin 30.2 pg (26-34); Mean Corpuscular Volume 93.5 fl (80-100); Mean Platelet Volume 10.7 fl (7.4-10.4); Platelet Count Result 323 k/mm3 (150-375); Red Blood Count 3.21 M/mm3 (4.6-6.20); Red Cell Distribution Width 14.1 % (11.5-14.5); White Blood Count 10.6 K/mm3 (4.5-10.0)
[2023-03-12 05:12] LABS: Alanine Aminotransferase 21 U/L (6-50); Albumin Level 2.3 g/dL (3.5-5.1); Alkaline Phosphatase 79 U/L (38-126); Anion Gap 2 mmol/L (8-16); Aspartate Amino Transferase 33 U/L (17-59); Bilirubin,Total 0.8 mg/dL (0.2-1.3); Blood Urea Nitrogen 21 mg/dL (9-20); Calcium 7.2 mg/dL (8.4-10.2); Carbon Dioxide 27 mmol/L (22-30); Chloride 107 mmol/L (98-107); Estimated CRCL calculation 87 ml/min; Estimated Glomerular Filt Rate > 60; Glucose 101 mg/dL (65-110); Magnesium 1.9 mg/dL (1.6-2.3); Partial Thromboplastin Time 125.5 SECONDS (22.3-36.8); Phosphorus 2.7 mg/dL (2.5-4.5); Potassium 3.1 mmol/L (3.4-5.0); Sodium 136 mmol/L (137-145)
[2023-03-12] MEDS: HEPARIN SOD/D5W 100 UNITS/ML 25,000 UNITS/250 ML BAG 19 UNITS IV CONT (06:31)
[2023-03-12] MEDS: PANTOPRAZOLE 40 MG TABLET PO (08:18)
[2023-03-12] MEDS: dilTIAZem HCL CD 180 MG CAP.ER.24H 360 MG PO (08:18)
[2023-03-12] MEDS: FLUTICASONE/UMECLIDIN/VILANTER 200-62.5-25 MCG ELLIPTA 1 PUFF INHALATION (08:38)
--- NOTE | 2023-03-12 10:09 | PM.IMPN ---
Progress Note: A&P Assessment and Plan (1) Sepsis: Code(s): A41.9 - Sepsis, unspecified organism Status: Acute Assessment and Plan: Patient developed sepsis symptoms with low-grade fever, tachycardia, hypoxia and bandemia.?Chest CT showing extensive bibasilar consolidation with hyperdense material with tree-in-bud opacities RML. Consider aspiration pneumonia. He was vomiting prior to admission so may have aspirated at that time. Also showing possible SBO with transition point right mid-abdomen near the previously seen hernia so consider ischemic bowel. He probably has underlying ILD which explains some of these findings. He was started on Zosyn. UA on 03/05 was not consistent with UTI.?BCx NGTD. COVID negative. No wound infection. Speech therapy evaluation shows no concerns for aspiration. Able to wean O2 off. WBC down again. Continue IV Zosyn. If worsens, consider adding Vanco. BCx growing GPB felt to be contaminate Clinical picture better today Follow. (2) Atrial fibrillation with rapid ventricular response: Code(s): I48.91 - Unspecified atrial fibrillation Status: Acute Assessment and Plan: Patient developed atrial fibrillation with RVR. He was moved to the IMU and started on diltiazem and heparin drip. No chest pain but EKG does show anterior lateral ST-T wave changes. Troponin negative x3. Echo showing EF 70% with indeterminate diastolic function, reduced RV function with sparing of the apex c/w McConnells sign. LE doppler positive for RLE DVT below the knee. May have PE causing the AFib. TSH okay. Remains on Heparin and Diltiazem drip. Will need a CTA of the chest. Continue to hold for now Cardiology consulted and appreciate their input. Transition to oral rate controlling agents once it is felt he can tolerate oral (3) Pneumonia: Code(s): J18.9 - Pneumonia, unspecified organism Status: Acute Assessment and Plan: Patient became hypoxic requiring 3 L. Related to above. Suspect he has PNA. Could be aspiration present on admission related to his vomiting episodes just prior to admission. He feels better today. Continue IV abx. Follow (4) SBO (small bowel obstruction): Code(s): K56.609 - Unspecified intestinal obstruction, unspecified as to partial versus complete obstruction Status: Acute Assessment and Plan: Patient had evidence of small-bowel obstruction on admission related to incarcerated hernia. He had an NG tube in place but this has been removed. he was doing well until he condition deteriorated requiring him to move to IMU. Follow-up imaging studies show possible recurrent SBO related to site of incarcerated hernia. SBFT 03/08 shows slow progression of contrast throughout multiple dilated loops of small bowel reaching the ileum; obstructive series the next morning shows persistently dilated small bowel with slow passage of contrast but contrast does reach the colon. He was having multiple stools probably related to the contrast. He received Lasix 03/09 with good UOP but still positive fluid balance. Diet started and tolerating it better. His appetite has improved. Abdominal symptoms improving. Encouraged patient to walk. (5) DVT (deep venous thrombosis): Code(s): I82.409 - Acute embolism and thrombosis of unspecified deep veins of unspecified lower extremity Status: Acute Assessment and Plan: Lower extremity venous Doppler shows DVT involving the right gastrocnemius, posterior tibial and peroneal veins. DVT below the knee are less likely the cause PE but concern that patient does have PE causing the Goldstein sign, hypoxia and atrial fibrillation. 03/12: Check CT PE, Dopplers (6) Hypoxia: Code(s): R09.02 - Hypoxemia Status: Acute Assessment and Plan: As above. Hypoxia related to PNA but may be fluid overload as well and better after Lasix. Repeat Lasix as tolerated and once potassium bett
--- NOTE | 2023-03-12 11:07 | PM.PNCARD ---
Progress Note: A&P Assessment and Plan (1) Atrial fibrillation with rapid ventricular response: Code(s): I48.91 - Unspecified atrial fibrillation Status: Acute Assessment and Plan: Remains in rate controlled atrial fibrillation, has occasional RVR with exertion Continue Diltiazem 360mg daily. Will start Toprol for additional rate control. Switch Heparin drip to NOAC. (2) DVT (deep venous thrombosis): Code(s): I82.409 - Acute embolism and thrombosis of unspecified deep veins of unspecified lower extremity Status: Acute Assessment and Plan: Doppler ultrasound positive for DVT right lower extremity. Will switch IV Heparin to Eliquis. (3) Hypoxia: Code(s): R09.02 - Hypoxemia Status: Acute Assessment and Plan: Patient has developed hypoxic respiratory compromise but does not appear to be secondary to decompensated heart failure despite lower extremity edema which is likely 3rd spacing. He is hyperdynamic LV systolic function which would not be unexpected given atrial tachyarrhythmia, acute critical illness and or intravascular volume depletion. Improving, on room air now. Given positive Goldstein sign on echo, patient was started on therapeutic anticoagulation. (4) Sepsis: Code(s): A41.9 - Sepsis, unspecified organism Status: Acute Assessment and Plan: Patient is a concerning pattern with low-grade fever, tachycardia, hypoxia and bandemia. On IV abx. Management per hospitalist service. (5) KATHERINE (acute kidney injury): Code(s): N17.9 - Acute kidney failure, unspecified Status: Acute Assessment and Plan: Improved. (6) SBO (small bowel obstruction): Code(s): K56.609 - Unspecified intestinal obstruction, unspecified as to partial versus complete obstruction Status: Acute Assessment and Plan: Per primary service and surgery. (7) H/O inguinal hernia repair: Code(s): Z98.890 - Other specified postprocedural states; Z87.19 - Personal history of other diseases of the digestive system Status: Acute Assessment and Plan: As above. Continue postoperative management per surgery. Subjective Date/time seen: 03/12/23 11:07 Interval history: Reason for visit: Atrial fibrillation with RVR HPI: Patient is a very pleasant 68-year-old male with past medical history significant for asthma and hypertension who underwent recurrent left inguinal hernia repair 02/27/2023 but returned to the ER the next day with complaints of abdominal pain and swelling found have a postoperative hematoma.? He was then discharged home in return 03/04/2023 with worsening abdominal pain, nausea vomiting unable to keep down food or drink.? Apparently, he initially left without being seen as the ER is very busy but his symptoms persisted and so he returned to the ER once again.? CT of the abdomen pelvis revealed small bowel obstruction containing small bowel, stable hematoma at left inguinal repair.? Patient was then seen by surgery and underwent exploratory laparoscopy in which he had reduction of an incarcerated right abdominal hernia and primary repair of incisional hernia performed on 03/05/2023.? He was noted be in sinus rhythm and sinus tachycardia initially.? However, he continued to have abdominal pain despite NG tube to suction and on 03/06 developed low-grade fever and acute kidney injury with creatinine up to 2.1.? He was given IV fluids and developed worsening leukocytosis.? DVT prophylaxis was added and antihypertensives were held.? The evening of 03/06/2023 patient developed atrial fibrillation with rapid ventricular response refractory to IV metoprolol.? Patient was also noted be more hypoxic requiring up titration at 3 L nasal cannula.? ? Patient was noted be diaphoretic and warm to touch with a distended abdomen very tender to light palpation as documented.? For control of his atrial fibrillation, he was then started on Cardiz
--- NOTE | 2023-03-12 13:11 | PM.PNGS ---
Progress Note: A&P Assessment and Plan (1) SBO (small bowel obstruction): Code(s): K56.609 - Unspecified intestinal obstruction, unspecified as to partial versus complete obstruction Status: Acute Assessment and Plan: Continues to clinically improve. Bowels are moving and he is tolerating a regular diet. Will switch supplements. Hernia repair intact. Continue to replace potassium, which was still 3.1 this morning. Will give an additional 40 meq PO KCL. Encourage ambulation. Okay from our standpoint to start oral anticoagulation. Plan I have discussed the patient's case and plan of care with Dr. Robertson. Subjective Subjective Date/Time Seen: 03/12/23 13:11 Post Op day: 8 (exploratory laparoscopy, reduction of incarcerated right abdominal port site hernia, primary repair incisional hernia) Patient reports: flatus, diarrhea and afebrile Interval history: Patient reports still having some mild cramping abdominal pain in the right side that is slowly improving. He is having lots of flatus and still loose bowel movements. He has had 3 loose BMs this morning. He is reportedly tolerating 50-75% of his meals. He is not taking in any supplements as he does not like the Ensure Compacts. He is tolerating walking the halls and ambulating well. He feels he is getting stronger than he was this weekend. Review of Systems Review of Systems: ROS unchanged Exam Const: General: comfortable and no acute distress Orientation/consciousness: patient oriented x3 GI: Inspection: non-distended and incision (dry and intact, no erythema) GI Palp: Yes Soft to palpation, Yes Tenderness to palpation present (GI) (tenderness along the right lateral incisions), No Guarding due to palpation present (GI) and No Hernia present Auscultation: normal bowel sounds Extrem: General: edema (bilateral lower extremities 3+ pitting edema) Psych: Mental Status: mental status grossly normal Insight: Good insight present (Psych) Objective Data Vital Signs Vital Signs: Vital Signs - 24 hr 03/11/23 15:17 03/11/23 15:26 03/11/23 15:32 Temperature Pulse Rate 85 83 86 Respiratory Rate 18 18 Blood Pressure 125/70 Pulse Oximetry Oxygen Delivery 03/11/23 15:32 03/11/23 17:01 03/11/23 14:00 Temperature 97.2 F L Pulse Rate 86 95 77 Respiratory Rate 20 Blood Pressure 125/70 119/67 Pulse Oximetry 96 Oxygen Delivery 03/11/23 16:00 03/11/23 18:00 03/11/23 16:00 Temperature Pulse Rate 77 87 Respiratory Rate Blood Pressure Pulse Oximetry 96 Oxygen Delivery Room Air 03/11/23 20:00 03/11/23 20:33 03/11/23 20:44 Temperature 97.6 F Pulse Rate 96 87 88 Respiratory Rate 22 H 18 18 Blood Pressure 132/60 Pulse Oximetry 95 Oxygen Delivery 03/11/23 20:00 03/11/23 21:50 03/11/23 22:00 Temperature Pulse Rate 93 77 97 Respiratory Rate Blood Pressure Pulse Oximetry Oxygen Delivery 03/11/23 23:53 03/12/23 00:00 03/12/23 02:00 Temperature 97.2 F L Pulse Rate 86 85 74 Respiratory Rate 22 H Blood Pressure 134/79 Pulse Oximetry 96 Oxygen Delivery 03/12/23 02:14 03/12/23 02:27 03/12/23 04:08 Temperature Pulse Rate 82 84 82 Respiratory Rate 18 18 Blood Pressure Pulse Oximetry Oxygen Delivery 03/12/23 04:00 03/12/23 04:00 03/12/23 06:00 Temperature 97.8 F Pulse Rate 87 93 85 Respiratory Rate 18 Blood Pressure 139/78 Pulse Oximetry 97 Oxygen Delivery 03/12/23 08:03 03/12/23 08:38 03/12/23 08:38 Temperature 96.8 F L Pulse Rate 86 82 Respiratory Rate 20 18 Blood Pressure 122/70 Pulse Oximetry 96 94 Oxygen Delivery Room Air 03/12/23 08:50 03/12/23 08:00 03/12/23 08:00 Temperature Pulse Rate 82 98 Respiratory Rate 18 Blood Pressure Pulse Oximetry Oxygen Delivery Room Air 03/12/23 10:00 03/12/23 12:17 03/12/23 12:00 Temperature 96.4 F L Pulse Rate 88 107 H Respiratory Rate 2
[2023-03-12] MEDS: METOPROLOL SUCCINATE EXT REL 25 MG TABCR PO (13:43)
[2023-03-12] MEDS: APIXABAN 5 MG TABLET 10 MG PO ×2 (13:43→21:44)
[2023-03-12] MEDS: POTASSIUM CHLORIDE 20 MEQ PACKET (FOR LIQUID) 40 MEQ PO (13:48)
[2023-03-12] MEDS: traMADol HCL (*CRX) 50 MG TABLET PO (15:31)
[2023-03-12] MEDS: AMOXICILLIN/CLAVULANATE K 875-125 MG TAB 1 TABLET PO (18:00)
[2023-03-12] MEDS: metroNIDAZOLE 250 MG TABLET 500 MG PO (18:00)
[2023-03-13] VITALS (18 sets, daily range): BP systolic 122–152; BP diastolic 60–83; PULSE 73–126; RESP 16–22; TEMP 36.3–36.7; O2SAT 95–100
[2023-03-13 04:52] LABS: Basophils Absolute Auto 0.1 K/mm3 (0.0-0.1); Basophils Percent Auto 0.5 % (0.2-1.2); Eosinophils Absolute Auto 0.5 K/mm3 (0-0.3); Eosinophils Percent Auto 4.5 % (0-4.4); Hematocrit 29.9 % (42.0-52.0); Hemoglobin 9.8 g/dL (14.0-18.0); Immature Granulocyte Absolute 0.38 K/mm3 (0.00-0.031); Immature Granulocyte Percent A 3.5 % (0-0.5); Lymphocytes Absolute Auto 1.24 K/mm3 (0.9-3.2); Lymphocytes Percent Auto 11.3 % (18.3-44.2); Mean Corpuscular HGB Conc 32.8 g/dl (32-36); Mean Corpuscular Hemoglobin 31.2 pg (26-34); Mean Corpuscular Volume 95.2 fl (80-100); Mean Platelet Volume 10.5 fl (7.4-10.4); Monocytes Absolute Auto 0.6 K/mm3 (0.1-0.6); Monocytes Percent Auto 5.1 % (2.6-8.5); Neutrophils Absolute Auto 8.2 K/mm3 (1.3-6.7); Neutrophils Percent Auto 75.1 % (45.5-73.1); Platelet Count Result 412 k/mm3 (150-375); Red Blood Count 3.14 M/mm3 (4.6-6.20); Red Cell Distribution Width 14.6 % (11.5-14.5)
[2023-03-13 05:08] LABS: Alanine Aminotransferase 24 U/L (6-50); Albumin Level 2.3 g/dL (3.5-5.1); Alkaline Phosphatase 75 U/L (38-126); Anion Gap 3 mmol/L (8-16); Aspartate Amino Transferase 37 U/L (17-59); Bilirubin,Total 0.7 mg/dL (0.2-1.3); Blood Urea Nitrogen 18 mg/dL (9-20); Calcium 7.2 mg/dL (8.4-10.2); Carbon Dioxide 26 mmol/L (22-30); Chloride 106 mmol/L (98-107); Estimated CRCL calculation 97 ml/min; Estimated Glomerular Filt Rate > 60; Glucose 120 mg/dL (65-110); Potassium 3.2 mmol/L (3.4-5.0); Sodium 135 mmol/L (137-145)
[2023-03-13] MEDS: traMADol HCL (*CRX) 50 MG TABLET PO ×2 (05:39→20:33)
[2023-03-13] MEDS: metroNIDAZOLE 250 MG TABLET 500 MG PO ×3 (05:40→20:56)
[2023-03-13] MEDS: FLUTICASONE/UMECLIDIN/VILANTER 200-62.5-25 MCG ELLIPTA 1 PUFF INHALATION (07:45)
[2023-03-13] MEDS: METOPROLOL SUCCINATE EXT REL 25 MG TABCR PO (10:33)
[2023-03-13] MEDS: PANTOPRAZOLE 40 MG TABLET PO (10:34)
[2023-03-13] MEDS: dilTIAZem HCL CD 180 MG CAP.ER.24H 360 MG PO (10:34)
[2023-03-13] MEDS: AMOXICILLIN/CLAVULANATE K 875-125 MG TAB 1 TABLET PO ×2 (10:35→21:40)
[2023-03-13] MEDS: APIXABAN 5 MG TABLET 10 MG PO ×2 (10:35→20:33)
--- NOTE | 2023-03-13 11:14 | PCPTNOTE ---
Pt is independent walking in the hallways/with ADLs in room. Pt reporting he does not have a need for PT at this time. FELICIA Anderson contacted and agreed to DC of PT orders at this time. RN aware.
--- NOTE | 2023-03-13 13:07 | PCNFU ---
Nutrition Follow-Up Complete: Inadequate energy intake related to diet orders as evidenced by NPO, liquids. Goal: PO Intake greater than 50% with tolerance, intake to improve to greater than 75%. Pt is progressing towards goal Pt current nutrition is Regular. Nutrition recommendation: continue with current plan of care Last recorded weight is 103.8 kg. Bowel Motility: + BM 03/12 Labs Reviewed: Hgb:10.4, HCT:32.5, Alb:2.7 Meds Noted: heparin, protonix Skin: WNL Additional Notes: Pt diet progressed to regular, tolerating well, intake good, pt continues to refuse supplements. Monitor intake, tolerance, wt, labs. Follow up in 7 days.
--- NOTE | 2023-03-13 14:04 | PM.IMPN ---
Progress Note: A&P Assessment and Plan (1) Sepsis: Code(s): A41.9 - Sepsis, unspecified organism Status: Acute Assessment and Plan: Patient developed sepsis symptoms with low-grade fever, tachycardia, hypoxia and bandemia.?Chest CT showing extensive bibasilar consolidation with hyperdense material with tree-in-bud opacities RML. Consider aspiration pneumonia. He was vomiting prior to admission so may have aspirated at that time. Also showing possible SBO with transition point right mid-abdomen near the previously seen hernia so consider ischemic bowel. He probably has underlying ILD which explains some of these findings. He was started on Zosyn. UA on 03/05 was not consistent with UTI.?COVID negative. No wound infection. Speech therapy evaluation shows no concerns for aspiration. Able to wean O2 off. Bld cx 03/07 positive for clostridium, repeat b,d cx NGTD. WBC continues to fluctuate. De-escalated to augmentin + flagyl to complete course of abx, monitor. (2) Atrial fibrillation with rapid ventricular response: Code(s): I48.91 - Unspecified atrial fibrillation Status: Acute Assessment and Plan: Patient developed atrial fibrillation with RVR. He was moved to the IMU and started on diltiazem and heparin drip. No chest pain but EKG does show anterior lateral ST-T wave changes. Troponin negative x3. Echo showing EF 70% with indeterminate diastolic function, reduced RV function with sparing of the apex c/w McConnells sign. LE doppler positive for RLE DVT below the knee. May have PE causing the AFib. TSH okay. Off heparin drip, CTA negative for PE, cont NOAC + oral dilt + toprol per cardio (3) Pneumonia: Code(s): J18.9 - Pneumonia, unspecified organism Status: Acute Assessment and Plan: Patient became hypoxic requiring 3 L. Related to above. Suspect he has PNA. Could be aspiration present on admission related to his vomiting episodes just prior to admission. Much improved. Continue abx. Follow (4) SBO (small bowel obstruction): Code(s): K56.609 - Unspecified intestinal obstruction, unspecified as to partial versus complete obstruction Status: Acute Assessment and Plan: Patient had evidence of small-bowel obstruction on admission related to incarcerated hernia. He had an NG tube in place but this has been removed. he was doing well until he condition deteriorated requiring him to move to IMU. Follow-up imaging studies show possible recurrent SBO related to site of incarcerated hernia. SBFT 03/08 shows slow progression of contrast throughout multiple dilated loops of small bowel reaching the ileum; obstructive series the next morning shows persistently dilated small bowel with slow passage of contrast but contrast does reach the colon. He was having multiple stools probably related to the contrast. He received Lasix 03/09 with good UOP but still positive fluid balance. Diet started and tolerating it better. His appetite has improved. Abdominal symptoms improving. Encouraged patient to walk. (5) DVT (deep venous thrombosis): Code(s): I82.409 - Acute embolism and thrombosis of unspecified deep veins of unspecified lower extremity Status: Acute Assessment and Plan: Lower extremity venous Doppler shows DVT involving the right gastrocnemius, posterior tibial and peroneal veins. DVT below the knee are less likely the cause PE but concern that patient does have PE causing the Goldstein sign, hypoxia and atrial fibrillation. See above, CTA negative for PE (6) Hypoxia: Code(s): R09.02 - Hypoxemia Status: Acute Assessment and Plan: As above. Hypoxia related to PNA but may be fluid overload as well and better after Lasix. Repeat Lasix as tolerated and once potassium better. Resolved (7) KATHERINE (acute kidney injury): Code(s): N17.9 - Acute kidney failure, unspecified Status: Acute Assessment and Plan:
--- NOTE | 2023-03-13 14:34 | PM.PNGS ---
Progress Note: A&P Assessment and Plan (1) Incarcerated incisional hernia: Code(s): K43.0 - Incisional hernia with obstruction, without gangrene Status: Acute Assessment and Plan: exam benign, +bowel fxn, cont to encourage OOB/IS (2) DVT (deep venous thrombosis): Code(s): I82.409 - Acute embolism and thrombosis of unspecified deep veins of unspecified lower extremity Status: Acute Assessment and Plan: on anticoagulation, getting CTA to r/o PE Subjective Subjective Date/Time Seen: 03/13/23 14:34 Interval history: feels better, reports normal bowel fxn and better appetite, still quite weak, c/o devante flank, back pain Review of Systems Review of Systems: All systems reviewed & are unremarkable except as noted in HPI and below Exam Const: General: cooperative, comfortable, no acute distress and edematous Resp: Auscultation: diminished lung sounds Cardio: Rate: regular rate Rhythm: regular rhythm GI: Inspection: normal to inspection, distended and incision GI Palp: Yes abdominal tenderness, Yes Soft to palpation, Yes Tenderness to palpation present (GI), No Guarding due to palpation present (GI) and No Rigid due to palpation Objective Data Vital Signs Vital Signs: Vital Signs - 24 hr 03/12/23 16:00 03/12/23 16:50 03/12/23 16:00 Temperature 36.2 C L Pulse Rate 94 82 Respiratory Rate 20 Blood Pressure 136/83 Pulse Oximetry 99 Oxygen Delivery Room Air 03/12/23 18:00 03/12/23 20:00 03/12/23 23:57 Temperature 36.5 C 36.5 C Pulse Rate 73 73 80 Respiratory Rate 18 16 Blood Pressure 113/64 107/72 Pulse Oximetry 97 97 Oxygen Delivery 03/12/23 20:00 03/12/23 20:00 03/12/23 22:00 Temperature Pulse Rate 87 86 Respiratory Rate Blood Pressure Pulse Oximetry Oxygen Delivery Room Air 03/13/23 00:00 03/13/23 01:53 03/13/23 00:00 Temperature Pulse Rate 75 73 80 Respiratory Rate 16 Blood Pressure Pulse Oximetry 97 Oxygen Delivery Room Air 03/13/23 04:00 03/13/23 04:00 03/13/23 04:00 Temperature 36.5 C Pulse Rate 83 84 Respiratory Rate 18 Blood Pressure 122/68 Pulse Oximetry 97 Oxygen Delivery Room Air 03/13/23 06:00 03/13/23 07:47 03/13/23 08:16 Temperature 36.3 C L Pulse Rate 83 86 Respiratory Rate 21 H Blood Pressure 124/69 Pulse Oximetry 95 98 Oxygen Delivery Room Air 03/13/23 10:33 03/13/23 08:00 03/13/23 10:00 Temperature Pulse Rate 112 H 92 109 H Respiratory Rate Blood Pressure Pulse Oximetry Oxygen Delivery 03/13/23 08:00 03/13/23 12:14 03/13/23 12:00 Temperature 36.4 C Pulse Rate 76 126 H Respiratory Rate 20 Blood Pressure 152/82 H Pulse Oximetry 98 100 Oxygen Delivery Room Air 03/13/23 12:00 Temperature Pulse Rate Respiratory Rate Blood Pressure Pulse Oximetry 98 Oxygen Delivery Room Air Intake/Output Intake/Output: Intake & Output 03/10/23 03/11/23 03/12/23 03/13/23 23:59 23:59 23:59 23:59 Intake Total 3852 2300 1960.3 712 Output Total 1700 Balance 2152 2300 1960.3 712 Meds/Results Medications: Active Medications Generic Name Dose Route Start Last Admin Trade Name Freq PRN Reason Stop Dose Admin Acetaminophen 650 mg 03/11/23 21:45 03/11/23 22:53 Acetaminophen 325 Mg Tablet PO 650 mg Q6H PRN Administration Pain or Fever Amoxicillin/Clavulanate Potassium 1 tablet 03/12/23 19:00 03/13/23 10:35 Amoxicillin/Clavulanate K 875-125 Mg Tab PO 1 tablet Q12HR URIEL Administration Apixaban 10 mg 03/12/23 11:10 03/13/23 10:35 Apixaban 5 Mg Tablet PO 03/19/23 11:09 10 mg Q12HR URIEL Administration Apixaban 5 mg 03/19/23 21:00 Apixaban 5 Mg Tablet PO Q12HR URIEL Bisacodyl 10 mg 03/10/23 10:13 Bisacodyl 10 Mg Suppository RECTAL QAM PRN Constipation Diltiazem HCl 360 mg 03/12/23 09:00 03/13/23 10:34 Diltiazem Hcl Cd 180 Mg Cap.Er.24h PO
[2023-03-13] MEDS: POTASSIUM CHLORIDE 20 MEQ PACKET (FOR LIQUID) 40 MEQ PO (15:57)
[2023-03-13] MEDS: POTASSIUM CHLORIDE 20 MEQ TABLET.ER PO (17:18)
[2023-03-13] MEDS: ACETAMINOPHEN 325 MG TABLET 650 MG PO (20:31)
[2023-03-13] MEDS: POTASSIUM CHLORIDE 20 MEQ TABLET 40 MEQ PO (21:40)
[2023-03-13] MEDS: FUROSEMIDE INJ 40 MG/4 ML VIAL 20 MG IV PUSH (21:52)
[2023-03-14] VITALS (14 sets, daily range): BP systolic 112–137; BP diastolic 68–92; PULSE 75–109; RESP 16–20; TEMP 36.2–36.8; O2SAT 95–98
[2023-03-14 00:25] LABS: Anion Gap 3 mmol/L (8-16); Blood Urea Nitrogen 16 mg/dL (9-20); Calcium 7.3 mg/dL (8.4-10.2); Carbon Dioxide 27 mmol/L (22-30); Chloride 105 mmol/L (98-107); Estimated CRCL calculation 97 ml/min; Estimated Glomerular Filt Rate > 60; Glucose 105 mg/dL (65-110); Potassium 3.4 mmol/L (3.4-5.0); Sodium 135 mmol/L (137-145)
[2023-03-14] MEDS: HYDROmorphone HCL INJ (*CRX) 1 MG/ML SYR IV PUSH ×2 (03:35→11:20)
[2023-03-14 04:50] LABS: Basophils Absolute Auto 0.1 K/mm3 (0.0-0.1); Basophils Percent Auto 0.7 % (0.2-1.2); Eosinophils Absolute Auto 0.6 K/mm3 (0-0.3); Eosinophils Percent Auto 4.7 % (0-4.4); Hematocrit 33.7 % (42.0-52.0); Hemoglobin 11.1 g/dL (14.0-18.0); Immature Granulocyte Percent A 2.3 % (0-0.5); Lymphocytes Absolute Auto 1.39 K/mm3 (0.9-3.2); Lymphocytes Percent Auto 10.7 % (18.3-44.2); Mean Corpuscular HGB Conc 32.9 g/dl (32-36); Mean Corpuscular Volume 94.1 fl (80-100); Mean Platelet Volume 10.2 fl (7.4-10.4); Monocytes Absolute Auto 0.6 K/mm3 (0.1-0.6); Monocytes Percent Auto 4.6 % (2.6-8.5); Neutrophils Absolute Auto 10.1 K/mm3 (1.3-6.7); Platelet Count Result 501 k/mm3 (150-375); Red Blood Count 3.58 M/mm3 (4.6-6.20); Red Cell Distribution Width 14.6 % (11.5-14.5); White Blood Count 13.1 K/mm3 (4.5-10.0)
[2023-03-14 05:00] LABS: Alanine Aminotransferase 24 U/L (6-50); Albumin Level 2.4 g/dL (3.5-5.1); Alkaline Phosphatase 71 U/L (38-126); Anion Gap 2 mmol/L (8-16); Aspartate Amino Transferase 30 U/L (17-59); Bilirubin,Total 0.6 mg/dL (0.2-1.3); Blood Urea Nitrogen 14 mg/dL (9-20); Calcium 7.4 mg/dL (8.4-10.2); Carbon Dioxide 28 mmol/L (22-30); Chloride 105 mmol/L (98-107); Estimated CRCL calculation 97 ml/min; Estimated Glomerular Filt Rate > 60; Glucose 114 mg/dL (65-110); Potassium 3.6 mmol/L (3.4-5.0); Sodium 135 mmol/L (137-145)
[2023-03-14] MEDS: metroNIDAZOLE 250 MG TABLET 500 MG PO ×3 (05:00→21:41)
[2023-03-14] MEDS: FLUTICASONE/UMECLIDIN/VILANTER 200-62.5-25 MCG ELLIPTA 1 PUFF INHALATION (07:44)
--- NOTE | 2023-03-14 08:05 | PM.IMPN ---
Progress Note: A&P Assessment and Plan (1) Sepsis: Code(s): A41.9 - Sepsis, unspecified organism Status: Acute Assessment and Plan: Patient developed sepsis symptoms with low-grade fever, tachycardia, hypoxia and bandemia.?Chest CT showing extensive bibasilar consolidation with hyperdense material with tree-in-bud opacities RML. Consider aspiration pneumonia. He was vomiting prior to admission so may have aspirated at that time. Also showing possible SBO with transition point right mid-abdomen near the previously seen hernia so consider ischemic bowel. He probably has underlying ILD which explains some of these findings. He was started on Zosyn. UA on 03/05 was not consistent with UTI.?COVID negative. No wound infection. Speech therapy evaluation shows no concerns for aspiration. Able to wean O2 off. 03/12: De-escalated abx to augmentin + flagyl to complete course of abx 03/13: Leuk fluctuating, clinically improving, no fevers, monitor 03/14: Bld cx 03/07 positive for clostridium, repeat bld cx NGTD, WBC continues to fluctuate, back up to 13, check CRP + PCT + KUB Update: pain continues to worsen, CRP+PCT+KUB all significantly improved, CT abd+pelvis showed possible PNA, no intra-abdominal abnormalities to explain patient's pain (2) Atrial fibrillation with rapid ventricular response: Code(s): I48.91 - Unspecified atrial fibrillation Status: Acute Assessment and Plan: Patient developed atrial fibrillation with RVR. He was moved to the IMU and started on diltiazem and heparin drip. No chest pain but EKG does show anterior lateral ST-T wave changes. Troponin negative x3. Echo showing EF 70% with indeterminate diastolic function, reduced RV function with sparing of the apex c/w McConnells sign. LE doppler positive for RLE DVT below the knee. May have PE causing the AFib? TSH okay. Off heparin drip 03/13: CTA negative for PE, cont NOAC + oral dilt + toprol per cardio 03/14: rate controlled, cont current management (3) Pneumonia: Code(s): J18.9 - Pneumonia, unspecified organism Status: Acute Assessment and Plan: Patient became hypoxic requiring 3 L. Related to above. Suspect he has PNA. Could be aspiration present on admission related to his vomiting episodes just prior to admission. Much improved. Continue abx as above (4) SBO (small bowel obstruction): Code(s): K56.609 - Unspecified intestinal obstruction, unspecified as to partial versus complete obstruction Status: Acute Assessment and Plan: Patient had evidence of small-bowel obstruction on admission related to incarcerated hernia. He had an NG tube in place but this has been removed. he was doing well until he condition deteriorated requiring him to move to IMU. Follow-up imaging studies show possible recurrent SBO related to site of incarcerated hernia. SBFT 03/08 shows slow progression of contrast throughout multiple dilated loops of small bowel reaching the ileum; obstructive series the next morning shows persistently dilated small bowel with slow passage of contrast but contrast does reach the colon. He was having multiple stools probably related to the contrast. He received Lasix 03/09 with good UOP but still positive fluid balance. Diet started and tolerating it better. His appetite has improved. Abdominal symptoms improving. Encouraged patient to walk. (5) DVT (deep venous thrombosis): Code(s): I82.409 - Acute embolism and thrombosis of unspecified deep veins of unspecified lower extremity Status: Acute Assessment and Plan: Lower extremity venous Doppler shows DVT involving the right gastrocnemius, posterior tibial and peroneal veins. DVT below the knee are less likely the cause PE but concern that patient does have PE causing the Goldstein sign, hypoxia and atrial fibrillation. See above, CTA negative for PE (6) Hypoxia: Code(s): R09.02 - Hypoxemia Status: A
[2023-03-14 08:55] LABS: Lactic Acid Reflex 0.8 mmol/L (0.7-2.0)
[2023-03-14 08:58] LABS: CRP 6.2 mg/dL (<1.0)
[2023-03-14 09:17] LABS: Procalcitonin 0.5 ng/mL
[2023-03-14] MEDS: POTASSIUM CHLORIDE 20 MEQ TABLET.ER PO ×2 (09:32→16:12)
[2023-03-14] MEDS: PANTOPRAZOLE 40 MG TABLET PO (09:32)
[2023-03-14] MEDS: AMOXICILLIN/CLAVULANATE K 875-125 MG TAB 1 TABLET PO ×2 (09:32→20:38)
[2023-03-14] MEDS: dilTIAZem HCL CD 180 MG CAP.ER.24H 360 MG PO (09:32)
[2023-03-14] MEDS: METOPROLOL SUCCINATE EXT REL 25 MG TABCR PO (09:32)
[2023-03-14] MEDS: APIXABAN 5 MG TABLET 10 MG PO ×2 (09:33→20:39)
--- NOTE | 2023-03-14 13:25 | PCCCNOTE ---
On 03/14/23, the student, [Jessica Lowry], provided care and completed [facility] documentation on this patient. I have reviewed the student's documentation and agree with the findings.
--- NOTE | 2023-03-14 15:40 | PM.PNGS ---
Progress Note: A&P Assessment and Plan (1) Incarcerated incisional hernia: Code(s): K43.0 - Incisional hernia with obstruction, without gangrene Status: Acute Assessment and Plan: CT reviewed and unremarkable, cont diet, exam largely benign, cont to encourage OOB/IS, home soon (2) DVT (deep venous thrombosis): Code(s): I82.409 - Acute embolism and thrombosis of unspecified deep veins of unspecified lower extremity Status: Acute Assessment and Plan: cont Eliquis Subjective Subjective Date/Time Seen: 03/14/23 15:40 Interval history: feels ok, still c/o intermittent severe abd pain, abdi diet, +bowel fxn Review of Systems Review of Systems: All systems reviewed & are unremarkable except as noted in HPI and below Exam Const: General: cooperative, comfortable and no acute distress Resp: Auscultation: clear to auscultation bilaterally Cardio: Rate: regular rate Rhythm: regular rhythm GI: Inspection: normal to inspection, non-distended and incision GI Palp: Yes abdominal tenderness, Yes Soft to palpation, Yes Tenderness to palpation present (GI), No Guarding due to palpation present (GI) and No Rigid due to palpation Other: mild TTP at incisions, mainly R abd, no peritonitis Objective Data Vital Signs Vital Signs: Vital Signs - 24 hr 03/13/23 16:00 03/13/23 16:00 03/13/23 16:14 Temperature 36.7 C Pulse Rate 106 H 101 H Respiratory Rate 22 H Blood Pressure 124/60 Pulse Oximetry 98 97 Oxygen Delivery Room Air Fraction of Inspired Oxygen 03/13/23 18:00 03/13/23 20:00 03/13/23 20:00 Temperature 36.7 C Pulse Rate 93 107 H 97 Respiratory Rate 18 Blood Pressure 139/83 Pulse Oximetry 99 Oxygen Delivery Fraction of Inspired Oxygen 03/13/23 20:00 03/13/23 22:00 03/14/23 00:00 Temperature 36.5 C Pulse Rate 107 H 102 H 94 Respiratory Rate 18 18 Blood Pressure 137/82 Pulse Oximetry 99 96 Oxygen Delivery Room Air Fraction of Inspired Oxygen 03/14/23 00:00 03/13/23 21:30 03/14/23 04:00 Temperature 36.5 C 36.2 C L Pulse Rate 89 Respiratory Rate 18 Blood Pressure 117/73 Pulse Oximetry 95 Oxygen Delivery Room Air Fraction of Inspired Oxygen 03/14/23 04:00 03/14/23 04:00 03/14/23 06:00 Temperature Pulse Rate 89 90 75 Respiratory Rate 18 Blood Pressure Pulse Oximetry 95 Oxygen Delivery Room Air Fraction of Inspired Oxygen 03/14/23 00:00 03/14/23 07:46 03/14/23 07:46 Temperature Pulse Rate 93 88 Respiratory Rate 18 Blood Pressure Pulse Oximetry 96 Oxygen Delivery Room Air Fraction of Inspired Oxygen 21 03/14/23 08:00 03/14/23 08:00 03/14/23 09:32 Temperature 36.2 C L Pulse Rate 80 109 H 81 Respiratory Rate 18 Blood Pressure 112/68 Pulse Oximetry 98 Oxygen Delivery Fraction of Inspired Oxygen 03/14/23 08:00 03/14/23 10:00 03/14/23 12:00 Temperature 36.8 C Pulse Rate 86 79 Respiratory Rate 16 Blood Pressure 131/72 Pulse Oximetry 98 98 Oxygen Delivery Room Air Fraction of Inspired Oxygen 03/14/23 12:00 03/14/23 12:00 Temperature Pulse Rate 83 Respiratory Rate Blood Pressure Pulse Oximetry 98 Oxygen Delivery Room Air Fraction of Inspired Oxygen Intake/Output Intake/Output: Intake & Output 03/11/23 03/12/23 03/13/23 03/14/23 23:59 23:59 23:59 23:59 Intake Total 2300 1960.3 1477 1600 Output Total 1001 1700 Balance 2300 1960.3 476 -100 Meds/Results Medications: Active Medications Generic Name Dose Route Start Last Admin Trade Name Freq PRN Reason Stop Dose Admin Acetaminophen 650 mg 03/11/23 21:45 03/13/23 20:31 Acetaminophen 325 Mg Tablet PO 650 mg Q6H PRN Administration Pain or Fever Amoxicillin/Clavulanate Potassium 1 tablet 03/12/23 19:00 03/14/23 09:32 Amoxicillin/Clavulanate K 875-125 Mg Tab PO 1 tablet Q12HR URIEL Administration Apixaban 10 mg
[2023-03-14] MEDS: FUROSEMIDE INJ 40 MG/4 ML VIAL IV PUSH (16:11)
[2023-03-14 17:10] LABS: Appearance Urine Clear (Clear); Bilirubin Urine Negative (Negative); Blood Urine Negative (Negative); Color Urine Yellow (Yellow); Glucose Urine UA Negative (Negative); Ketones Urine Negative (Negative); Leukocyte Esterase Ur Negative LEU/UL (NEGATIVE); Nitrate Urine Negative (Negative); Protein Urine Negative (Negative)
[2023-03-14 17:19] LABS: Add Urine Microscopic? NO
--- NOTE | 2023-03-14 17:21 | PCOTNOTE ---
D/C pt. from therapy services as pt. has returned to baseline function in ADLs and functional transfers
[2023-03-14 19:32] LABS: Potassium 3.5 mmol/L (3.4-5.0)
[2023-03-14] MEDS: traMADol HCL (*CRX) 50 MG TABLET PO (21:41)
--- NOTE | 2023-03-14 22:22 | PC.NURSE ---
This patient, Derrell Noriega ., was transferred to [ [facility]] on 03/14/23 at 2211. Personal belongings sent with patient. Report given to [Jesse]. Appropriate documentation sent with patient.
--- NOTE | 2023-03-15 00:14 | PC.NURSE ---
Spoke with Dr. Ward at this time r/t c/o pain and tramadol ineffective. New order received for Gove 7.5 x1
[2023-03-15] MEDS: HYDROcodone/acetaminophen (*CRX) 7.5-325 MG TABLET 1 TAB PO (00:28)
[2023-03-15 04:00] VITALS: BP 128/85; PULSE 90; RESP 20; TEMP 36.9; O2SAT 97
[2023-03-15] MEDS: metroNIDAZOLE 250 MG TABLET 500 MG PO ×2 (05:16→17:05)
[2023-03-15 06:36] LABS: Basophils Absolute Auto 0.1 K/mm3 (0.0-0.1); Basophils Percent Auto 0.6 % (0.2-1.2); Eosinophils Absolute Auto 0.8 K/mm3 (0-0.3); Eosinophils Percent Auto 5.8 % (0-4.4); Hematocrit 33.5 % (42.0-52.0); Immature Granulocyte Absolute 0.31 K/mm3 (0.00-0.031); Immature Granulocyte Percent A 2.1 % (0-0.5); Lymphocytes Absolute Auto 1.82 K/mm3 (0.9-3.2); Lymphocytes Percent Auto 12.5 % (18.3-44.2); Mean Corpuscular HGB Conc 32.8 g/dl (32-36); Mean Corpuscular Volume 94.4 fl (80-100); Monocytes Absolute Auto 0.8 K/mm3 (0.1-0.6); Monocytes Percent Auto 5.3 % (2.6-8.5); Neutrophils Absolute Auto 10.7 K/mm3 (1.3-6.7); Neutrophils Percent Auto 73.7 % (45.5-73.1); Platelet Count Result 571 k/mm3 (150-375); Red Blood Count 3.55 M/mm3 (4.6-6.20); Red Cell Distribution Width 14.9 % (11.5-14.5); White Blood Count 14.6 K/mm3 (4.5-10.0)
[2023-03-15 06:47] LABS: Alanine Aminotransferase 20 U/L (6-50); Albumin Level 2.4 g/dL (3.5-5.1); Alkaline Phosphatase 66 U/L (38-126); Anion Gap 1 mmol/L (8-16); Aspartate Amino Transferase 26 U/L (17-59); Bilirubin,Total 0.5 mg/dL (0.2-1.3); Blood Urea Nitrogen 14 mg/dL (9-20); Calcium 7.4 mg/dL (8.4-10.2); Carbon Dioxide 29 mmol/L (22-30); Chloride 103 mmol/L (98-107); Estimated CRCL calculation 97 ml/min; Estimated Glomerular Filt Rate > 60; Glucose 104 mg/dL (65-110); Potassium 3.8 mmol/L (3.4-5.0); Sodium 133 mmol/L (137-145)
[2023-03-15 08:00] VITALS: BP 124/82; PULSE 77; RESP 18; TEMP 36.8; O2SAT 98
[2023-03-15] MEDS: dilTIAZem HCL CD 180 MG CAP.ER.24H 360 MG PO (08:11)
[2023-03-15] MEDS: POTASSIUM CHLORIDE 20 MEQ TABLET.ER PO ×2 (08:11→17:06)
[2023-03-15] MEDS: APIXABAN 5 MG TABLET 10 MG PO (08:11)
[2023-03-15] MEDS: PANTOPRAZOLE 40 MG TABLET PO (08:11)
[2023-03-15] MEDS: AMOXICILLIN/CLAVULANATE K 875-125 MG TAB 1 TABLET PO (08:11)
[2023-03-15 08:12] VITALS: PULSE 80
[2023-03-15] MEDS: METOPROLOL SUCCINATE EXT REL 25 MG TABCR PO (08:12)
[2023-03-15] MEDS: ACETAMINOPHEN 325 MG TABLET 650 MG PO (08:14)
[2023-03-15] MEDS: FLUTICASONE/UMECLIDIN/VILANTER 200-62.5-25 MCG ELLIPTA 1 PUFF INHALATION (08:27)
--- NOTE | 2023-03-15 09:13 | PM.IMPN ---
Progress Note: A&P Assessment and Plan (1) Sepsis: Code(s): A41.9 - Sepsis, unspecified organism Status: Acute Assessment and Plan: Patient developed sepsis symptoms with low-grade fever, tachycardia, hypoxia and bandemia.?Chest CT showing extensive bibasilar consolidation with hyperdense material with tree-in-bud opacities RML. Consider aspiration pneumonia. He was vomiting prior to admission so may have aspirated at that time. Also showing possible SBO with transition point right mid-abdomen near the previously seen hernia so consider ischemic bowel. He probably has underlying ILD which explains some of these findings. He was started on Zosyn. UA on 03/05 was not consistent with UTI.?COVID negative. No wound infection. Speech therapy evaluation shows no concerns for aspiration. Able to wean O2 off. 03/12: De-escalated abx to augmentin + flagyl to complete course of abx 03/13: Leuk fluctuating, clinically improving, no fevers, monitor 03/14: Bld cx 03/07 positive for clostridium, repeat bld cx NGTD, WBC continues to fluctuate, back up to 13, check CRP + PCT + KUB 03/15: WBC increased a bit to 14 today, CRP + PCT improving, clinically improving, imaging non acute, monitor, cont augmentin + flagyl (2) Atrial fibrillation with rapid ventricular response: Code(s): I48.91 - Unspecified atrial fibrillation Status: Acute Assessment and Plan: Patient developed atrial fibrillation with RVR. He was moved to the IMU and started on diltiazem and heparin drip. No chest pain but EKG does show anterior lateral ST-T wave changes. Troponin negative x3. Echo showing EF 70% with indeterminate diastolic function, reduced RV function with sparing of the apex c/w McConnells sign. LE doppler positive for RLE DVT below the knee. May have PE causing the AFib? TSH okay. Off heparin drip 03/13: CTA negative for PE, cont NOAC + oral dilt + toprol per cardio 03/14: rate controlled, cont current management (3) Pneumonia: Code(s): J18.9 - Pneumonia, unspecified organism Status: Acute Assessment and Plan: Patient became hypoxic requiring 3 L. Related to above. Suspect he has PNA. Could be aspiration present on admission related to his vomiting episodes just prior to admission. Much improved. Continue abx as above (4) SBO (small bowel obstruction): Code(s): K56.609 - Unspecified intestinal obstruction, unspecified as to partial versus complete obstruction Status: Resolved Assessment and Plan: Patient had evidence of small-bowel obstruction on admission related to incarcerated hernia. He had an NG tube in place but this has been removed. he was doing well until he condition deteriorated requiring him to move to IMU. Follow-up imaging studies show possible recurrent SBO related to site of incarcerated hernia. SBFT 03/08 shows slow progression of contrast throughout multiple dilated loops of small bowel reaching the ileum; obstructive series the next morning shows persistently dilated small bowel with slow passage of contrast but contrast does reach the colon. He was having multiple stools probably related to the contrast. He received Lasix 03/09 with good UOP but still positive fluid balance. Diet started and tolerating it better. His appetite has improved. Abdominal symptoms improving. Encouraged patient to walk. (5) DVT (deep venous thrombosis): Code(s): I82.409 - Acute embolism and thrombosis of unspecified deep veins of unspecified lower extremity Status: Acute Assessment and Plan: Lower extremity venous Doppler shows DVT involving the right gastrocnemius, posterior tibial and peroneal veins. DVT below the knee are less likely the cause PE but concern that patient does have PE causing the Goldstein sign, hypoxia and atrial fibrillation. See above, CTA negative for PE (6) Hypoxia: Code(s): R09.02 - Hypoxemia Status: Acute Assessment and Plan: A
[2023-03-15 12:00] VITALS: BP 126/80; PULSE 73; RESP 18; TEMP 36.9; O2SAT 99
--- NOTE | 2023-03-15 12:00 | PM.PNGS ---
Progress Note: A&P Assessment and Plan (1) SBO (small bowel obstruction): Code(s): K56.609 - Unspecified intestinal obstruction, unspecified as to partial versus complete obstruction Status: Resolved Assessment and Plan: Okay to discharge from surgical standpoint. Follow-up with Dr. Robertson in 1 week (2) Incarcerated incisional hernia: Code(s): K43.0 - Incisional hernia with obstruction, without gangrene Status: Resolved Assessment and Plan: Repaired 03/04/2023 (3) Leukocytosis: Qualifiers: Leukocytosis type: unspecified Qualified Code(s): D72.829 - Elevated white blood cell count, unspecified Code(s): D72.829 - Elevated white blood cell count, unspecified Status: Acute Assessment and Plan: Can be followed up as an outpatient. Will get repeat CBC again on Friday. (4) DVT (deep venous thrombosis): Qualifiers: DVT location: lower extremity Affected thrombotic vein of extremity: calf muscle vein Chronicity: acute Laterality: right Qualified Code(s): I82.461 - Acute embolism and thrombosis of right calf muscular vein Code(s): I82.409 - Acute embolism and thrombosis of unspecified deep veins of unspecified lower extremity Status: Acute Assessment and Plan: Calf vein DVT. Patient on Eliquis therapeutic dose (5) Atrial fibrillation with rapid ventricular response: Code(s): I48.91 - Unspecified atrial fibrillation Status: Acute Assessment and Plan: Continue Eliquis as above Subjective Subjective Date/Time Seen: 03/15/23 12:00 Patient reports: no new complaints, feels better and afebrile Interval history: Wants to go home. Review of Systems Review of Systems: All systems reviewed & are unremarkable except as noted in HPI and below (HPI and those items noted below) Constitutional: Constitutional: Denies chills and Denies fever(s) Cardiovascular: Cardiovascular: Denies chest pain, Denies diaphoresis, Denies dyspnea and Denies paroxysmal nocturnal dyspnea Respiratory: Respiratory: Denies chest congestion, Denies cough and Denies dyspnea Integumentary/Breasts: Skin/Breast: Denies lesions and Denies rash Exam Const: General: cooperative, comfortable, no acute distress, alert and awake Orientation/consciousness: patient oriented x3 GI: Inspection: non-distended, incision (All healing well) and no visible herniation GI Palp: Yes Soft to palpation, Yes Tenderness to palpation present (GI) (Mild appropriate tenderness), No Guarding due to palpation present (GI), No Hernia present and No Rebound tenderness present Auscultation: normal bowel sounds : Male General Exam: Yes other (Hardened area consistent with hematoma left groin, no recurrent hernia) Neuro: General: patient oriented x3 and no focal motor deficits Extrem: General: no calf tenderness and edema Psych: Affect: normal affect Insight: Good insight present (Psych) Judgement: Good judgement present (Psych) Objective Data Vital Signs Vital Signs: Vital Signs - 24 hr 03/14/23 16:00 03/14/23 16:00 03/14/23 14:00 Temperature 36.8 C Pulse Rate 90 95 Respiratory Rate 18 Blood Pressure 123/77 Pulse Oximetry 97 98 Oxygen Delivery Room Air Fraction of Inspired Oxygen 03/14/23 16:00 03/14/23 18:00 03/14/23 19:50 Temperature 36.5 C Pulse Rate 85 85 82 Respiratory Rate 18 Blood Pressure 122/77 Pulse Oximetry 96 Oxygen Delivery Fraction of Inspired Oxygen 03/14/23 22:30 03/14/23 22:44 03/15/23 04:00 Temperature 36.6 C 36.9 C Pulse Rate 82 87 90 Respiratory Rate 18 20 20 Blood Pressure 137/92 H 128/85 Pulse Oximetry 96 98 97 Oxygen Delivery Room Air Fraction of Inspired Oxygen 21 03/15/23 08:12 03/15/23 08:00 Temperature 36.8 C Pulse Rate 80 77 Respiratory Rate 18 Blood Pressure 124/82 Pulse Oximetry 98 Oxygen Delivery Fraction of Inspired Oxygen Intake/Output Intake
[2023-03-15 16:00] VITALS: BP 122/81; PULSE 80; RESP 18; TEMP 36.6; O2SAT 99
--- NOTE | 2023-03-20 14:40 | PC.NURSE ---
Received call from patient regarding explosive diarrhea starting today. Pt is taking Amoxicillin. Pt called Dr. Robertson and was instructed to stop antx. which pt does not want to do since he has a blood infection . Spoke to Dr. Ann. Instructed to call Dr. Scherer for orders. She feels pt needs stool cx and flagyl. Spoke to pt regarding calling Dr. Scherer since pt was admitted for SBO. Informed pt Dr. Ann feels he could have C Diff which would require a course of Flagyl. PT states he will call Dr. Scherer.
--- NOTE | 2023-04-01 11:00 | PM.DS ---
DS: Admitting Diagnosis Discharge Date 03/15/23 Admitting Diagnosis incarcerated port site hernia with small-bowel obstruction DS: Discharge Diagnosis Discharge Diagnosis (1) Incarcerated incisional hernia: Code(s): K43.0 - Incisional hernia with obstruction, without gangrene Status: Resolved Assessment and Plan: status post repair and reduction of hernia, continue routine postoperative care including light activity restrictions, home with p.o. analgesia, Colace (2) SBO (small bowel obstruction): Code(s): K56.609 - Unspecified intestinal obstruction, unspecified as to partial versus complete obstruction Status: Resolved Assessment and Plan: resolved status post reduction and repair of hernia, continue routine postoperative care (3) Atrial fibrillation with rapid ventricular response: Code(s): I48.91 - Unspecified atrial fibrillation Status: Acute Assessment and Plan: on Eliquis, currently rate controlled (4) DVT (deep venous thrombosis): Qualifiers: DVT location: lower extremity Affected thrombotic vein of extremity: calf muscle vein Chronicity: acute Laterality: right Qualified Code(s): I82.461 - Acute embolism and thrombosis of right calf muscular vein Code(s): I82.409 - Acute embolism and thrombosis of unspecified deep veins of unspecified lower extremity Status: Acute Assessment and Plan: on Eliquis, encourage ambulation DS: Summary Hospital Course Reason for hospitalization: incarcerated incisional hernia with small-bowel obstruction Hospital Course: The patient is a 68-year-old male presenting to the emergency department complaining of severe abdominal pain, intractable nausea and vomiting. Workup in the emergency department, including CT, was significant for incarcerated incisional hernia with resultant small bowel obstruction. Given these findings, the patient was taken emergently to the operating room for exploration. Exploratory laparoscopy with reduction of small bowel and repair of incisional hernia was undertaken on 03/04. Please see full operative report for details of that procedure. Postoperatively, the patient was transferred back to the surgical floor. Patient had a complicated postoperative course, given multiple surgeries over the last month. The patient did develop atrial fibrillation for which Cardiology was consulted. Patient also developed DVTs and was subsequently started on anticoagulation. Patient continued to be weak throughout his hospital stay requiring extensive physical therapy. The patient did initially did have an ileus that resolved slowly throughout his hospital stay. At the time of his discharge, the patient is now rate controlled and on anticoagulation. His pain is well controlled with p.o. analgesia and he has been up and ambulating without issue. He is tolerating a diet and having normal bowel function. He will follow up with me in 1 week. Time Spent with Patient Time attestation: Total time spent providing and/or coordinating discharge services: Discharge Plan Discharge Attending physician on discharge: Chary Ann Consulting providers: Temo Hurtado; Lobito Agustin; Delilah Howell; Kari Robertson; Dionisio Garay; Diane Aguila; Santana Mederos; Kraig Vidal; Jamison Hernandez; Luci Portillo; Patricia Ortiz; Jaime Mark; Edenilson Scherer; Stephen Espinosa V.; Sofía De Souza; Cordell Lira; Joaquin Jean Discharging Clinician: Chary Ann Patient Disposition: Home, Self-Care Activity: may shower and no straining Diet: regular Wound Care Instructions: incision open to air Discharge Instructions: Ambulate 3-4 x per day and as tolerated. No lifting over 15-20lbs. May bathe or shower. Stairs are OK. May drive a car in 3-4 days. Keep legs elevated when sitting or lying down Repeat CBC as an outpatient on Friday You will need to hav
== END 2023-03-15 17:27 | disposition home or self-care (01) | DRG 353 ==
LOC: ANHED 04:15 → ANH2MED 05:34 → ANHIMU 03-07 16:56 → ANH3MEDSUR 03-15 08:48 → ANH2MED 03-17 10:11 → ANH3MEDSUR 03-17 10:11 → ANHIMU 03-17 10:11
PROVIDERS: Internal Medicine; Nurse Practitioner; Nurse Practitioner Family; Surgery; Admitting Provider Surgery; Emergency Provider Emergency Medicine; PCP Surgery; Visit Provider Student in an Organized Health Care Education/Training Program
PROC: 0WQF0ZZ Repair Abdominal Wall, Open Approach (ICD-10-PCS; principal; 2023-03-04 13:30)
DX: K43.0 Incisional hernia with obstruction, without gangrene (principal); A41.9 Sepsis, unspecified organism; J69.0 Pneumonitis due to inhalation of food and vomit; I82.451 Acute embolism and thrombosis of right peroneal vein; N17.9 Acute kidney failure, unspecified; L76.32 Postprocedural hematoma of skin and subcutaneous tissue following other procedure; J84.9 Interstitial pulmonary disease, unspecified; R09.02 Hypoxemia; I48.91 Unspecified atrial fibrillation; Z53.31 Laparoscopic surgical procedure converted to open procedure; I10 Essential (primary) hypertension; J45.909 Unspecified asthma, uncomplicated; K21.9 Gastro-esophageal reflux disease without esophagitis; Z79.899 Other long term (current) drug therapy
CPT/HCPCS: 36415; 71045; 71250; 71275; 74018; 74019; 74176; 74177; 74250; 76775; 80048; 80053; 80069; 81001; 81003; 82550; 82570; 83605; 83690; 83735; 84100; 84132; 84145; 84300; 84439; 84443; 84480; 84484; 85025; 85027; 85610; 85730; 85999; 86140; 87040; 87076; 87081; 87185; 87637; 92610; 93005; 93306; 93970; 94640; 96361; 96374; 96375; 97165; 97530; 97535; 99285; A9270; C9113; J0131; J0330; J1170; J1644; J1885; J1940; J2250; J2405; J2543; J2704; J3010; J3475; J3480; J7030; J7040; J7042; J7120; Q9967

== ENCOUNTER 2023-03-20 16:42 | Outpatient (CLI) | payer MEDICARE, SELFPAY ==
[2023-03-20 17:04] LABS: Hematocrit 36.5 % (42.0-52.0); Hemoglobin 11.8 g/dL (14.0-18.0); Mean Corpuscular HGB Conc 32.3 g/dl (32-36); Mean Corpuscular Hemoglobin 30.8 pg (26-34); Mean Corpuscular Volume 95.3 fl (80-100); Mean Platelet Volume 9.8 fl (7.4-10.4); Platelet Count Result 637 k/mm3 (150-375); Red Blood Count 3.83 M/mm3 (4.6-6.20); Red Cell Distribution Width 15.5 % (11.5-14.5); White Blood Count 10.8 K/mm3 (4.5-10.0)
== END 2023-03-20 16:43 | disposition home or self-care (01) ==
PROVIDERS: PCP Surgery; Referring Provider Surgery; Visit Provider Surgery
DX: K56.609 Unspecified intestinal obstruction, unspecified as to partial versus complete obstruction (principal); R19.7 Diarrhea, unspecified
CPT/HCPCS: 36415; 85027

== ENCOUNTER 2023-03-21 09:37 | Outpatient (NON) | payer MEDICARE, SELFPAY ==
[2023-03-21 10:46] LABS: Toxigenic C. Diff NEGATIVE (NEGATIVE)
== END 2023-03-21 09:38 | disposition home or self-care (01) ==
PROVIDERS: PCP Surgery; Visit Provider Surgery
DX: R19.7 Diarrhea, unspecified (principal)
CPT/HCPCS: 87493

== ENCOUNTER 2023-03-22 10:45 | Outpatient (CLI) | payer MEDICARE, SELFPAY ==
[2023-03-22 11:55] LABS: Anion Gap 7 mmol/L (8-16); Blood Urea Nitrogen 13 mg/dL (9-20); Calcium 8.1 mg/dL (8.4-10.2); Carbon Dioxide 26 mmol/L (22-30); Chloride 104 mmol/L (98-107); Estimated Glomerular Filt Rate > 60; Glucose 141 mg/dL (65-110); Potassium 3.7 mmol/L (3.4-5.0); Sodium 137 mmol/L (137-145)
== END 2023-03-22 10:46 | disposition home or self-care (01) ==
PROVIDERS: Visit Provider Student in an Organized Health Care Education/Training Program
DX: N17.9 Acute kidney failure, unspecified (principal)
CPT/HCPCS: 36415; 80048

== ENCOUNTER 2023-03-28 09:35 | Outpatient (CLI) | payer MEDICARE, SELFPAY ==
[2023-03-28 10:18] LABS: Hematocrit 36.8 % (42.0-52.0); Hemoglobin 11.8 g/dL (14.0-18.0); Mean Corpuscular HGB Conc 32.1 g/dl (32-36); Mean Corpuscular Hemoglobin 30.8 pg (26-34); Mean Corpuscular Volume 96.1 fl (80-100); Mean Platelet Volume 10.4 fl (7.4-10.4); Platelet Count Result 324 k/mm3 (150-375); Red Blood Count 3.83 M/mm3 (4.6-6.20); Red Cell Distribution Width 15.2 % (11.5-14.5); White Blood Count 8.9 K/mm3 (4.5-10.0)
[2023-03-28 10:49] LABS: Alanine Aminotransferase 12 U/L (6-50); Albumin Level 3.4 g/dL (3.5-5.1); Alkaline Phosphatase 54 U/L (38-126); Anion Gap 2 mmol/L (8-16); Aspartate Amino Transferase 24 U/L (17-59); Bilirubin,Total 0.6 mg/dL (0.2-1.3); Blood Urea Nitrogen 15 mg/dL (9-20); Calcium 8.2 mg/dL (8.4-10.2); Carbon Dioxide 31 mmol/L (22-30); Chloride 104 mmol/L (98-107); Estimated Glomerular Filt Rate > 60; Glucose 100 mg/dL (65-110); Potassium 3.7 mmol/L (3.4-5.0); Sodium 137 mmol/L (137-145)
== END 2023-03-28 09:36 | disposition home or self-care (01) ==
DX: I48.0 Paroxysmal atrial fibrillation (principal)
CPT/HCPCS: 36415; 80053; 84443; 85027

== ENCOUNTER 2023-04-16 06:19 | Day surgery (SDC) | payer MEDICARE, SELFPAY ==
[2023-04-14 16:44] VITALS: BMI 26.7
[2023-04-16] VITALS (11 sets, daily range): BP systolic 122–139; BP diastolic 73–91; PULSE 60–76; RESP 12–20; TEMP 36.4; O2SAT 97–100; BMI 25.6
--- NOTE | 2023-04-16 10:00 | ECG_ITS ---
Measurements Intervals [place] Rate: 82 P: CT: 0 QRS: 0 QRSD: 97 T: 16 QT: 399 QTc: 468 Interpretive Statements ATRIAL FIBRILLATION BASELINE ARTIFACT- I, II, III, AVL, AVF ABNORMAL ECG COMPARED TO ECG 03/06/2023 22:56:00 HEART RATE HAS DECREASED Electronically Signed On 04-16-2023 10:32:44 CDT by Jamison Hernandez D.O.
--- NOTE | 2023-04-16 10:00 | ECG_ITS ---
Measurements Intervals [place] Rate: 62 P: 63 IA: 233 QRS: 2 QRSD: 89 T: 10 QT: 431 QTc: 438 Interpretive Statements SINUS RHYTHM WITH FIRST DEGREE AV BLOCK ATRIAL PREMATURE COMPLEX BASELINE ARTIFACT- v1 BORDERLINE ECG COMPARED TO ECG 04/16/2023 10:27:04 SINUS RHYTHM NOW PRESENT FIRST DEGREE AV BLOCK NOW PRESENT Electronically Signed On 04-16-2023 12:55:25 CDT by Jamison Hernandez D.O.
[2023-04-16 10:49] LABS: Anion Gap 8 mmol/L (8-16); Blood Urea Nitrogen 20 mg/dL (9-20); Calcium 8.9 mg/dL (8.4-10.2); Carbon Dioxide 26 mmol/L (22-30); Chloride 105 mmol/L (98-107); Estimated CRCL calculation 97 ml/min; Estimated Glomerular Filt Rate > 60; Glucose 107 mg/dL (65-110); Magnesium 1.9 mg/dL (1.6-2.3); Potassium 3.6 mmol/L (3.4-5.0); Sodium 139 mmol/L (137-145)
--- NOTE | 2023-04-16 11:35 | WPDHPUPDATE1 ---
History and Physical Update Update Date/Time: 04/16/23 11:35 History and Physical has been reviewed, including an updated exam of the patient. There are NO changes in the patient's condition. Risks, benefits, and alternatives have been discussed and questions answered. Patient agrees to proceed with procedure.
--- NOTE | 2023-04-16 11:35 | WPDMODSED ---
Moderate Sedation Note-Pt Data Patient Data Diagnosis: Atrial fibrillation Present Complaint: fatigue Procedure to be performed/Plan: elective electrical cardioversion Allergies Allergy/AdvReac Type Severity Reaction Status Date / Time adhesive tape AdvReac SKIN Verified 04/16/23 10:18 IRRITATION Home Medications Medication Instructions Recorded Confirmed Type albuterol sulfate 90 mcg/actuation 1 inh inhalation Q4-6H PRN Wheezing 01/13/23 04/14/23 History breath activated powder inhaler,sensor (Proair Digihaler) loratadine 10 mg tablet 10 mg PO DAILY PRN SEASONAL 01/13/23 04/14/23 History ALLERGIES multivitamin 1 tablet PO DAILY 01/13/23 04/14/23 History omeprazole 40 mg capsule,delayed 40 mg PO DAILY PRN ACID REFLEX 01/13/23 04/14/23 History release vitamins A,C,Y-ehub-rltrbq 4,296 1 cap PO BID 01/13/23 04/14/23 History mcg-226 mg-90 mg capsule (PreserVision AREDS) fluticasone propionate 50 1 spray intranasal DAILY PRN 01/22/23 04/14/23 History mcg/actuation nasal Allergy Symptoms spray,suspension (Flonase Allergy Relief) fluticasone fur. 200 mcg-umeclid 1 inh inhalation DAILY 03/07/23 04/14/23 History 62.5 mcg-vilant 25 mcg inhalat.powder (Trelegy Ellipta) amoxicillin 875 mg-potassium 1 tablet PO Q12H 10 days #20 tabs 03/15/23 04/14/23 Rx clavulanate 125 mg tablet diltiazem HCl 180 mg 360 mg PO QAM 1 month #60 caps 03/15/23 04/16/23 Rx capsule,extended release 24 hr, controlled metoprolol succinate 25 mg 25 mg PO QAM 1 month #30 tabs 03/15/23 04/16/23 Rx tablet,extended release 24 hr (Toprol XL) apixaban 5 mg tablet (Eliquis) 5 mg PO BID 04/14/23 04/16/23 History Current Medications: Active Medications Sodium Chloride (Normal Saline Iv) 1,000 mls @ 30 mls/hr IV CONT .Q24H URIEL Sedation/Anesthesia: No previous sedation/anesthesia problems (including family history). [facility] Past Medical History Medical History Asthma GERD (gastroesophageal reflux disease) Hypertension ILD (interstitial lung disease) Kidney stones Macular degeneration Surgical History Surgical History H/O inguinal hernia repair 01/31/2023 - robotic laparoscopic bilateral inguinal hernia repair History of eye surgery History of hernia repair inguinal History of incisional hernia repair 03/04/2023 - exploratory laparoscopy, reduction of incarcerated right abdominal port site hernia, primary repair incisional hernia measuring approximately 12 mm History of knee surgery Family History Family History Other Diabetes mellitus Hypertension Social History Social History Social History: Lifelong nonsmoker. Rarely drinks alcohol. No drug use. Full code. He nominates Na Obrien to be the individual who would make medical decisions for him if he is unable. Smoking status: Never smoker Second hand tobacco smoke exposure: No Alcohol intake: current Alcohol use details: about 15 per year Substance use: never Substance use type: does not use Lack of Transportation: No Lack of Food: Never True Current Housing: I Have Housing Concerned About Future Housing: No Difficulty Paying Gas/Electric Bills: No Difficulty Paying for Meds: No Currently Unemployed: No Education: High School Diploma/GED Difficulty w/ Childcare or Family Care: No Living arrangements: with family Additional living arrangements comments: LIVES WITH SIGNIFICANT OTHER NA OBRIEN Spiritual care concerns: No Mod Sed Physical Exam Physical Exam Pre Procedural Exam: Normal: Appearance, Eyes, Ears, Nose, Neck ( supple, normal range of motion), Throat ( posterior hypopharynx clear, nonerythematous), Airway ( no obstruction, normal anatomy
--- NOTE | 2023-04-16 11:40 | WPDCARDVER ---
Cardioversion Cardioversion Date of procedure: 04/16/23 Procedure: elective electrical cardioversion Pre-op diagnosis: atrial fibrillation Post-op diagnosis: Same Indications: atrial fibrillation Description of procedure: Brief history present illness: Patient is a pleasant 68 year old male with history of sleep apnea on BiPAP, history of alcohol, hypertension, hyperlipidemia, history of DVT on systemic anticoagulation referred for elective electrical cardioversion in attempt to restore sinus rhythm due to ongoing fatigue. Patient was supported with BiPAP with respiratory therapy through this study. Procedure in detail: After verbal and written informed consent was obtained the patient risks, benefits, and alternatives explained in detail the patient agreed to proceed with the plan of care as outlined above. Patient was evaluated at bedside in the [facility] procedure room. On examination, neck was supple with normal range of motion, no restrictions to opening of the oral cavity, jaw angle and posterior hypopharynx was clear. Lungs were clear to auscultation. Patient was placed in appropriate 30 to 45 degree angle in a supine position. Patient was monitored throughout the study with telemetry, oxygen saturation, end-tidal CO2 monitoring, blood pressure, heart rate, and respirations. Anterior and posterior defibrillator pads placed in the appropriate positions. After confirmation of adequate sedation electrical cardioversion was carried out without complication. Patient tolerated the procedure well without difficulty. Of note, BiPAP was initiated prior to beginning the procedure and tolerance confirmed. I discussed the patient in detail cord risks with anesthesia/moderate sedation without noninvasive positive-pressure ventilation support. Patient verbalized understanding and was in agreement. Sedation: Moderate Sedation/Anesthesia administration: Patient denied previous intolerance or complications with anesthesia/sedation. Please see sedation note for documentation of the pre-procedure physical examination. A total of 6mg intravenous Versed and a total of 125 mcg intravenous Fentanyl in multiple divided doses was utilized for moderate sedation. Sedation start time was 1145 and end time was 1205 for a total of 20 minutes [id number] intra-procedure time. Sedation was administered by a qualified observer Koki Krause RN under my supervision with intra-procedure [id number] observation and management throughout the entirety of the procedure. There were no other issues or complications and patient tolerated the procedure well and sedation protocol well and I was present for the entirety. Patient did very well with BiPAP settings per respiratory therapy throughout the study without difficulty. Findings: Elective electrical cardioversion: After confirmation of adequate sedation and persistence of atrial fibrillation, 200 joules synched biphasic energy x1 was delivered with immediate yazdanism of sinus rhythm. Twelve lead EKG was obtained postprocedure confirming sinus rhythm. Complications: None Conclusion: Successful yazdanism of sinus rhythm with 200 joules synched biphasic energy x1 without complication. Recommendations: Continue systemic anticoagulation without interruption unless explicitly advised and particularly for next 30 days post cardioversion.
--- NOTE | 2023-04-16 13:25 | SUR.PHASEII ---
pt awaiting his transportation home.
== END 2023-04-16 13:35 | disposition home or self-care (01) ==
PROVIDERS: Visit Provider Internal Medicine Cardiovascular Disease
PROC: 5A2204Z Restoration of Cardiac Rhythm, Single (ICD-10-PCS; principal; 2023-04-16 11:30)
DX: I48.91 Unspecified atrial fibrillation (principal); J45.909 Unspecified asthma, uncomplicated; I10 Essential (primary) hypertension; J84.9 Interstitial pulmonary disease, unspecified; K21.9 Gastro-esophageal reflux disease without esophagitis; E78.5 Hyperlipidemia, unspecified; G47.30 Sleep apnea, unspecified; Z86.718 Personal history of other venous thrombosis and embolism; Z79.51 Long term (current) use of inhaled steroids; Z79.01 Long term (current) use of anticoagulants
CPT/HCPCS: 36415; 80048; 83735; 92960; 94660; J2250; J3010; J7030

== ENCOUNTER 2023-05-15 11:54 | Emergency (ER) | payer MEDICARE, SELFPAY ==
[2023-05-15] VITALS (7 sets, daily range): BP systolic 145–162; BP diastolic 80–92; PULSE 78–88; RESP 16–20; TEMP 37.1; O2SAT 96–100
--- NOTE | ~2023-05-15 | CT_ITS ---
EXAMINATION: CTA chest PE protocol DATE: 05/15/2023 14:07 INDICATION: Chest pain. TECHNIQUE: Computed tomography angiography (CTA) of the chest was performed with 100 mL Omnipaque-350 intravenous contrast timed to evaluate the pulmonary arteries. Coronal maximum intensity projection 3D-reconstructions were created by the technologist. Automated exposure control and iterative reconst ruction technique were employed. The dose-length product was 609.93 mGy-cm. COMPARISON: Chest CT 03/13/2023 FINDINGS: The lung volumes are small. There are widespread reticular opacities with a lower lung pred ominance. There are widespread calcifications among the reticular opacities. There is smooth septal t hickening at the lung apices, consistent mild pulmonary edema. Again seen are a few nodules measuring up to 4 mm, likely benign. There are small pleural effusions. Cardiomegaly is noted. There is a smal l pericardial effusion. Calcified mediastinal lymph nodes are consistent with old granulomatous disea se. There is no pulmonary embolus. There is bilateral gynecomastia. Calcifications in the spleen are consistent with old granulomatous disease. There is severe thoracic and cervical spondylosis. There i s mild chronic anterior wedging of multiple vertebral bodies. IMPRESSION: 1. No pulmonary embolus. 2. Chronic interstitial lung disease in a pattern of usual interstitial pneumonia (UIP). 3. Mild pulmonary edema. 4. Small pleural effusions. 5. Cardiomegaly. Small pericardial effusion, new from 03/13/2023. Reviewed, dictated and finalized at location L. IMPRESSION: 1. No pulmonary embolus. 2. Chronic interstitial lung disease in a pattern of usual interstitial pneumon ia (UIP). 3. Mild pulmonary edema. 4. Small pleural effusions. 5. Cardiomegaly. Small pericardial effusion, new from 03/13/2023.
--- NOTE | ~2023-05-15 | XR_ITS ---
EXAMINATION: XR chest 2V DATE: 05/15/2023 13:41 INDICATION: Chest pain. TECHNIQUE: Frontal and lateral views of the chest were obtained. COMPARISON: Chest single view 03/07/2023, chest CT 03/13/2023 FINDINGS: There are chronic reticular opacities in the mid and lower lung zones. There are small pleu ral effusions. No pneumothorax. Cardiomegaly is noted. There is mild chronic anterior wedging of mult iple thoracic vertebral bodies. There is an old healed left rib fracture. IMPRESSION: 1. Chronic reticular opacities in the mid and lower lung zones, consistent with chronic interstitial lung disease without or with superimposed mild pulmonary edema. 2. Small pleural effusions. 3. Cardiomegaly. Reviewed, dictated and finalized at location L.
--- NOTE | 2023-05-15 11:58 | ECG_ITS ---
Measurements Intervals [place] Rate: 82 P: [place]: 0 QRS: 15 QRSD: 102 T: 30 QT: 390 QTc: 457 Interpretive Statements ATRIAL FIBRILLATION MINOR NONSPECIFIC T-WAVE ABNORMALITY ABNORMAL RHYTHM ECG COMPARED TO ECG 04/16/2023 12:12:05 ATRIAL FIBRILLATION REPLACES SINUS RHYTHM Electronically Signed On 05-16-2023 12:46:11 CDT by Nilay Lopez M.D.
[2023-05-15 13:40] LABS: Basophils Absolute Auto 0.1 K/mm3 (0.0-0.1); Basophils Percent Auto 0.6 % (0.2-1.2); Eosinophils Absolute Auto 0.1 K/mm3 (0-0.3); Eosinophils Percent Auto 0.7 % (0-4.4); Hematocrit 41.8 % (42.0-52.0); Hemoglobin 13.3 g/dL (14.0-18.0); Immature Granulocyte Absolute 0.05 K/mm3 (0.00-0.031); Immature Granulocyte Percent A 0.4 % (0-0.5); Lymphocytes Absolute Auto 1.09 K/mm3 (0.9-3.2); Lymphocytes Percent Auto 8.6 % (18.3-44.2); Mean Corpuscular HGB Conc 31.8 g/dl (32-36); Mean Corpuscular Hemoglobin 30.6 pg (26-34); Mean Corpuscular Volume 96.3 fl (80-100); Mean Platelet Volume 10.9 fl (7.4-10.4); Monocytes Absolute Auto 1.2 K/mm3 (0.1-0.6); Monocytes Percent Auto 9.7 % (2.6-8.5); Neutrophils Absolute Auto 10.1 K/mm3 (1.3-6.7); Platelet Count Result 208 k/mm3 (150-375); Red Blood Count 4.34 M/mm3 (4.6-6.20); Red Cell Distribution Width 13.9 % (11.5-14.5); White Blood Count 12.6 K/mm3 (4.5-10.0)
[2023-05-15 13:50] LABS: Alanine Aminotransferase 15 U/L (6-50); Alkaline Phosphatase 84 U/L (38-126); Anion Gap 4 mmol/L (8-16); Aspartate Amino Transferase 24 U/L (17-59); Bilirubin,Total 1.1 mg/dL (0.2-1.3); Blood Urea Nitrogen 18 mg/dL (9-20); Calcium 8.8 mg/dL (8.4-10.2); Carbon Dioxide 28 mmol/L (22-30); Chloride 102 mmol/L (98-107); Estimated CRCL calculation 97 ml/min; Estimated Glomerular Filt Rate > 60; Glucose 103 mg/dL (65-110); Lipase 36 U/L (23-300); Potassium 3.6 mmol/L (3.4-5.0); Sodium 134 mmol/L (137-145)
[2023-05-15 14:02] LABS: INR 1.3; Prothrombin Time 16.8 Seconds (11.1-14.7); Troponin I < 0.012 ng/mL (0.000-0.034)
[2023-05-15 14:03] LABS: Partial Thromboplastin Time 25.3 SECONDS (22.3-36.8)
[2023-05-15] MEDS: ONDANSETRON INJ 4 MG/2 ML VIAL IV PUSH (14:47)
[2023-05-15] MEDS: MORPHINE SULFATE (*CRX) 4 MG/ML INJ IV PUSH (14:47)
--- NOTE | 2023-05-15 14:53 | ED.CHESTPAIN ---
HPI - Chest Pain General Chief Complaint: Chest Pain Stated Complaint: chest pain and SOB - hx of afib Time Seen by Provider: 05/15/23 13:20 Source: patient, RN notes reviewed and old records reviewed Mode of arrival: ambulatory Limitations: no limitations History of Present Illness HPI narrative: This is a 68 year old male with history of DVT, COPD, atrial fibrillation who presents for evaluation of chest pain. Patient states he had stress test yesterday by Dr. Agustin's office. He developed chest pain and shortness of breath during his chemical stress test. His chest pain resolved but it returned this morning. His pain has been constant and it is worse with inspiration. He denies worsening cough. He reports shortness of breath due to pain with breathing. He denies fever, chills, nausea, vomiting. He has chronic leg swelling that has improved. He was diagnosed with DVT a couple months ago. He is taking eliquis 5 mg BID and he states he has been taking medication as prescribed. Related Data Home Medications Medication Instructions Recorded Confirmed albuterol sulfate 90 mcg/actuation 1 inh inhalation Q4-6H PRN Wheezing 01/13/23 04/14/23 breath activated powder inhaler,sensor (Proair Digihaler) loratadine 10 mg tablet 10 mg PO DAILY PRN SEASONAL 01/13/23 04/14/23 ALLERGIES multivitamin 1 tablet PO DAILY 01/13/23 04/14/23 omeprazole 40 mg capsule,delayed 40 mg PO DAILY PRN ACID REFLEX 01/13/23 04/14/23 release vitamins A,C,I-lfkq-qvbisy 4,296 1 cap PO BID 01/13/23 04/14/23 mcg-226 mg-90 mg capsule (PreserVision AREDS) fluticasone propionate 50 1 spray intranasal DAILY PRN 01/22/23 04/14/23 mcg/actuation nasal Allergy Symptoms spray,suspension (Flonase Allergy Relief) fluticasone fur. 200 mcg-umeclid 1 inh inhalation DAILY 03/07/23 04/14/23 62.5 mcg-vilant 25 mcg inhalat.powder (Trelegy Ellipta) apixaban 5 mg tablet (Eliquis) 5 mg PO BID 04/14/23 04/16/23 Allergies Allergy/AdvReac Type Severity Reaction Status Date / Time adhesive tape AdvReac SKIN Verified 05/15/23 11:55 IRRITATION Review of Systems Review of Systems: All systems reviewed & are unremarkable except as noted in HPI and below Constitutional: Constitutional: Denies weakness Cardiovascular: Cardiovascular: Reports chest pain, Denies syncope, Denies rapid heart rate, Denies irregular heart rhythm, Denies leg edema and Reports dyspnea Respiratory: Respiratory: Denies chest congestion, Denies hemoptysis, Denies excessive phlegm production and Reports dyspnea Gastrointestinal: Gastrointestinal: Denies abdominal pain, Denies hematochezia, Denies diarrhea and Denies vomiting Genitourinary: Genitourinary: Denies hematuria, Denies dysuria, Denies penile discharge and Denies testicular pain Musculoskeletal: Musculoskeletal: Denies joint swelling, Denies loss of height and Denies muscle weakness Neurologic: Denies syncope, Denies focal weakness and Denies weakness [facility] Past Medical History Medical History (Updated 05/15/23 @ 17:34 by Sharlene Mejia MD) Asthma Atrial fibrillation with rapid ventricular response DVT (deep venous thrombosis) GERD (gastroesophageal reflux disease) Hypertension ILD (interstitial lung disease) Kidney stones Macular degeneration Surgical History Surgical History H/O inguinal hernia repair 01/31/2023 - robotic laparoscopic bilateral inguinal hernia repair History of eye surgery History of hernia repair inguinal History of incisional hernia repair 03/04/2023 - exploratory laparoscopy, reduction of incarcerated right abdominal port site hernia, primary repair incisional hernia measuring approximately 12 mm History of knee surgery Family History Family History Other Diabetes mellitus Hypertension Social History Social History (Reviewed 05/15/23 @ 15:00 by Sharlene Pulido
[2023-05-15 17:23] LABS: Troponin I < 0.012 ng/mL (0.000-0.034)
== END 2023-05-15 18:00 | disposition home or self-care (01) ==
PROVIDERS: Emergency Provider General Practice
DX: R07.9 Chest pain, unspecified (principal); J45.909 Unspecified asthma, uncomplicated; I48.91 Unspecified atrial fibrillation; K21.9 Gastro-esophageal reflux disease without esophagitis; I10 Essential (primary) hypertension; Z87.442 Personal history of urinary calculi; Z79.01 Long term (current) use of anticoagulants; Z86.718 Personal history of other venous thrombosis and embolism
CPT/HCPCS: 36415; 71046; 71275; 80053; 83690; 84484; 85025; 85610; 85730; 93005; 96374; 96375; 99284; J2270; J2405; Q9967

== ENCOUNTER 2023-05-30 15:13 | Outpatient (CLI) | payer MEDICARE, SELFPAY ==
[2023-05-30 16:05] LABS: Anion Gap 7 mmol/L (8-16); Blood Urea Nitrogen 20 mg/dL (9-20); Calcium 8.5 mg/dL (8.4-10.2); Carbon Dioxide 27 mmol/L (22-30); Chloride 103 mmol/L (98-107); Estimated Glomerular Filt Rate > 60; Glucose 108 mg/dL (65-110); Potassium 3.5 mmol/L (3.4-5.0); Sodium 137 mmol/L (137-145)
== END 2023-05-30 15:14 | disposition home or self-care (01) ==
DX: I10 Essential (primary) hypertension (principal)
CPT/HCPCS: 36415; 80048

== ENCOUNTER 2023-06-17 17:46 | Emergency (ER) | payer MEDICARE, SELFPAY ==
--- NOTE | ~2023-06-17 | XR_ITS ---
EXAM: XR knee LT min 4V DATE: 06/17/2023 19:28 HISTORY: fallx 2 days ago- swelling to left knee . COMPARISON: None available. FINDINGS: Normal mineralization. No fracture or dislocation. No lytic or blastic lesion. Mild tricom partmental osteophytosis. Chondrocalcinosis. No erosion or periosteal change. Anterior soft tissue sw elling. IMPRESSION: No acute osseous finding the left knee. Reviewed, dictated and finalized at location K.
[2023-06-17 19:09] VITALS: BP 104/63; PULSE 86; RESP 20; TEMP 36.8; O2SAT 100
--- NOTE | 2023-06-17 19:14 | ECG_ITS ---
Measurements Intervals [place] Rate: 84 P: [place]: 0 QRS: -12 QRSD: 82 T: 3 QT: 362 QTc: 430 Interpretive Statements ATRIAL FIBRILLATION ABNORMAL ECG COMPARED TO ECG 05/15/2023 12:04:43 NO SIGNIFICANT CHANGES Electronically Signed On 06-17-2023 20:10:06 CDT by Jamison Hernandez D.O.
--- NOTE | 2023-06-17 22:36 | PC.NURSE ---
patient states that the wait is too long and left from waiting room
== END 2023-06-17 22:36 | disposition left against medical advice (07) ==
LOC: ANHED 22:40
PROVIDERS: Emergency Provider Emergency Medicine
DX: U07.1 COVID-19 (principal); I48.91 Unspecified atrial fibrillation; M25.562 Pain in left knee
CPT/HCPCS: 73564; 93005; 99199

== ENCOUNTER 2023-06-25 08:44 | Outpatient (CLI) | payer MEDICARE, SELFPAY ==
[2023-06-25 09:48] LABS: Anion Gap 7 mmol/L (8-16); Blood Urea Nitrogen 29 mg/dL (9-20); Carbon Dioxide 28 mmol/L (22-30); Chloride 102 mmol/L (98-107); Estimated Glomerular Filt Rate > 60; Glucose 96 mg/dL (65-110); Potassium 4.5 mmol/L (3.4-5.0); Sodium 137 mmol/L (137-145)
== END 2023-06-25 08:45 | disposition home or self-care (01) ==
DX: I10 Essential (primary) hypertension (principal)
CPT/HCPCS: 36415; 80048

== ENCOUNTER 2023-07-29 11:14 | Outpatient (CLI) | payer MEDICARE, SELFPAY ==
--- NOTE | ~2023-07-29 | CT_ITS ---
CT of the Abdomen and Pelvis: Indication: Incisional pain Technique: 2.5 mm axial scans were obtained through the abdomen and pelvis following intravenous adm inistration of 100 cc of Omnipaque 350. Dose reduction technique was used on this scan by utilizing a utomated exposure control and iterative reconstruction technique. The dose-length product (DLP) was 7 99.47 mGy-cm. COMPARISON: 03/14/2023 Findings: Scans through the lung bases demonstrated extensive bibasilar reticulonodular/tree-in-bud opacities.. The liver, spleen, pancreas, gallbladder, adrenals and kidneys are within normal limits. No evidence of aortic aneurysm. No lymphadenopathy. No bowel obstruction or bowel wall thickening. There sigmoid diverticulosis present. Normal appendix. Images through the pelvis were performed. Probable mild urinary bladder wall thickening. Small urinar y bladder diverticula are present. Prostate gland and seminal vesicles are unremarkable. No ascites. No ascites. Impression: Findings suspicious for cystitis. Correlate with urinalysis. Small urinary bladder diverticula. Reticulonodular/tree-in-bud opacities at the lung bases. This could reflect subchorionic prior aspira tion, versus other chronic interstitial disease or active small airways infectious process. Correlate clinically. Reviewed, dictated and finalized at location . Impression: Findings suspicious for cystitis. Correlate with urinalysis. Small urinary bladder diverticula. Reticulonodular/tree-in-bud opacities at the lung bases. This could reflect sub chorionic prior aspiration, versus other chronic interstitial disease or active small airways infectious process. Correlate clinically.
[2023-07-29 12:05] LABS: Estimated Glomerular Filt Rate 60
== END 2023-07-29 11:15 | disposition home or self-care (01) ==
LOC: ANHIMG 11:17
PROVIDERS: PCP Student in an Organized Health Care Education/Training Program; Visit Provider Surgery
DX: N32.3 Diverticulum of bladder (principal); R91.8 Other nonspecific abnormal finding of lung field; L76.82 Other postprocedural complications of skin and subcutaneous tissue; Z98.890 Other specified postprocedural states; Z87.19 Personal history of other diseases of the digestive system
CPT/HCPCS: 74177; Q9967

== ENCOUNTER 2024-01-07 19:57 | Emergency (ER) | payer OTHER, SELFPAY ==
--- NOTE | ~2024-01-07 | CT_ITS ---
EXAMINATION: CTA chest PE protocol DATE: 01/07/2024 22:29 INDICATION: cough, hemoptysis TECHNIQUE: Computed tomography angiography (CTA) of the chest was performed with 100 mL Omnipaque-350 intravenous contrast timed to evaluate the pulmonary arteries. Coronal maximum intensity projection 3D-reconstructions were created by the technologist. The dose-length product (DLP) was 623.99 mGy-cm. Automated exposure control and iterative reconstruction technique were employed. COMPARISON: 05/15/2023. FINDINGS: Lung parenchyma and airways: Stable bilateral lower lobe reticular interstitial opacities with puncta te calcifications. New tree-in-bud and centrilobular groundglass opacities in the left upper lobe and to a lesser extent the right upper lobe. Bronchial debris in the left upper lobe. Pleura: Unremarkable. Thoracic inlet, axillae and chest wall: Mild symmetric gynecomastia. Thoracic aorta: No significant dilation. No dissection. Mediastinum: Calcified subcarinal node. Heart and pericardium: Normal. Coronary artery calcifications: Absent. Upper abdomen: No significant finding. Bones: No acute osseous finding. Pulmonary arteries: Study quality: Adequate. No pulmonary emboli detected. IMPRESSION: No CT evidence of acute pulmonary embolus. Pulmonary opacities, most pronounced in the left upper lobe, may reflect atypical infection (MAC, TB, fungal), ABPA, or other airways disease. Reviewed, dictated and finalized at location [facility]. IMPRESSION: No CT evidence of acute pulmonary embolus. Pulmonary opacities, most pronounced in the left upper lobe, may reflect atypic al infection (MAC, TB, fungal), ABPA, or other airways disease.
--- NOTE | ~2024-01-07 | XR_ITS ---
EXAMINATION: XR chest 2V Exam Date/Time: 01/07/2024 20:30 CDT HISTORY: COUGHING UP BLOOD X 1 DAY Comparison: 05/15/2023; CTPA 05/15/2023. RESULT: Lines, tubes, and devices: None. Lungs and pleura: Small focus of streaky opacities in the left midlung. Stable bilateral lower lung interstitial opacities. Cardiomediastinal silhouette: Stable. Other: No acute osseous or upper abdominal finding. IMPRESSION: Subsegmental right mid lung airspace disease may represent a focus of infection. Chronic interstitial lung disease. Reviewed, dictated and finalized at location [facility]. IMPRESSION: Subsegmental right mid lung airspace disease may represent a focus of infection . Chronic interstitial lung disease.
[2024-01-07 20:03] VITALS: BP 158/79; PULSE 85; RESP 13; TEMP 36.5; O2SAT 99
[2024-01-07 20:22] LABS: Basophils Absolute Auto 0.1 K/mm3 (0.0-0.1); Basophils Percent Auto 0.6 % (0.2-1.2); Eosinophils Absolute Auto 0.3 K/mm3 (0-0.3); Eosinophils Percent Auto 2.8 % (0-4.4); Hematocrit 43.1 % (42.0-52.0); Hemoglobin 14.3 g/dL (14.0-18.0); Immature Granulocyte Absolute 0.07 K/mm3 (0.00-0.031); Immature Granulocyte Percent A 0.6 % (0-0.5); Lymphocytes Absolute Auto 1.87 K/mm3 (0.9-3.2); Lymphocytes Percent Auto 15.9 % (18.3-44.2); Mean Corpuscular HGB Conc 33.2 g/dl (32-36); Mean Corpuscular Hemoglobin 31.6 pg (26-34); Mean Corpuscular Volume 95.1 fl (80-100); Mean Platelet Volume 11.4 fl (7.4-10.4); Monocytes Absolute Auto 0.9 K/mm3 (0.1-0.6); Monocytes Percent Auto 7.4 % (2.6-8.5); Neutrophils Absolute Auto 8.6 K/mm3 (1.3-6.7); Neutrophils Percent Auto 72.7 % (45.5-73.1); Platelet Count Result 210 k/mm3 (150-375); Red Blood Count 4.53 M/mm3 (4.6-6.20); Red Cell Distribution Width 14.5 % (11.5-14.5); White Blood Count 11.8 K/mm3 (4.5-10.0)
[2024-01-07 20:31] LABS: INR 1.1; Partial Thromboplastin Time 29.8 Seconds (22.3-36.8); Prothrombin Time 14.5 Seconds (11.1-14.7)
[2024-01-07 20:41] LABS: Alanine Aminotransferase 117 U/L (6-50); Alkaline Phosphatase 157 U/L (38-126); Anion Gap 5 mmol/L (4-12); Aspartate Amino Transferase 85 U/L (17-59); Bilirubin,Total 0.6 mg/dL (0.2-1.3); Blood Urea Nitrogen 24 mg/dL (9-20); Calcium 9.1 mg/dL (8.4-10.2); Carbon Dioxide 28 mmol/L (22-30); Chloride 103 mmol/L (98-107); Estimated CRCL calculation 87 ml/min; Estimated Glomerular Filt Rate > 60; Glucose 125 mg/dL (65-110); Potassium 3.7 mmol/L (3.4-5.0); Sodium 136 mmol/L (137-145)
[2024-01-07 21:58] VITALS: RESP 16; O2SAT 96
--- NOTE | 2024-01-07 22:22 | ED.GENADULT ---
HPI - General Adult General Chief complaint: Unspecified Stated complaint: coughing up blood Time Seen by Provider: 01/07/24 20:56 Source: patient Mode of arrival: ambulatory Limitations: no limitations History of Present Illness HPI narrative: This is a 68-year-old male With PMH of AFib, chronic asthma who presents to the ED with chief complaint of hemoptysis. Patient reports he has a chronic cough but today it seemed to get a little worse. Reports rather abruptly around 1800 he began coughing up large amounts of blood and blood clots. He does take Eliquis regularly. patient states that he felt there was blood in his airways which was causing him to wheeze. He reports that whenever he was able to cough up the blood he had great relief of his chest tightness. States otherwise he has not been short of breath and has had absolutely no chest pain. Denies lightheadedness, syncope, abdominal pain, nausea, vomiting, fevers, chills, headache. He does note recent sinus infection and was treated with a course of antibiotics by PCP. Patient reports that a couple of days ago he noticed some intermittent epistaxis but this seemed to resolved. He does note that today he had a little bit more epistaxis around the time of the cough. At this time he states he is asymptomatic and that the hemoptysis has completely resolved. Related Data Home Medications Medication Instructions Recorded Confirmed albuterol sulfate 90 mcg/actuation 1 inh inhalation Q4-6H PRN Wheezing 01/13/23 07/09/23 breath activated powder inhaler,sensor (Proair Digihaler) loratadine 10 mg tablet 10 mg PO DAILY PRN SEASONAL 01/13/23 07/09/23 ALLERGIES multivitamin 1 tablet PO DAILY 01/13/23 07/09/23 omeprazole 40 mg capsule,delayed 40 mg PO DAILY PRN ACID REFLEX 01/13/23 07/09/23 release vitamins A,C,W-nzau-cqlgzr 4,296 1 cap PO BID 01/13/23 07/09/23 mcg-226 mg-90 mg capsule (PreserVision AREDS) apixaban 5 mg tablet (Eliquis) 5 mg PO BID 04/14/23 07/09/23 carvedilol 25 mg tablet 25 mg PO Q12H 07/09/23 07/09/23 mv-mn-folic 200 mcg-vit K 15 cap PO 07/09/23 07/09/23 mcg-lutein 5 mg-zeaxanthin 1 mg capsule (PreserVision AREDS 2 Plus Multivit) potassium Cl-calcium phos-mag 40 1 tablet PO QID PRN 07/09/23 07/09/23 mg-18 mg-9 mg tablet spironolactone 25 mg tablet 25 mg PO DAILY 07/09/23 07/09/23 Allergies Allergy/AdvReac Type Severity Reaction Status Date / Time adhesive tape AdvReac SKIN Verified 07/09/23 11:04 IRRITATION Review of Systems Review of Systems: All systems as dictated in [facility] Past Medical History Medical History (Updated 01/07/24 @ 23:12 by Dionisio Arias PA-C) Asthma Atrial fibrillation with rapid ventricular response DVT (deep venous thrombosis) GERD (gastroesophageal reflux disease) Hypertension ILD (interstitial lung disease) Kidney stones Macular degeneration Surgical History Surgical History (Updated 07/09/23 @ 11:32 by Kate Webster [facility]) H/O inguinal hernia repair 01/31/2023 - robotic laparoscopic bilateral inguinal hernia repair History of eye surgery History of hernia repair inguinal History of incisional hernia repair 03/04/2023 - exploratory laparoscopy, reduction of incarcerated right abdominal port site hernia, primary repair incisional hernia measuring approximately 12 mm History of knee surgery Family History Family History Other Diabetes mellitus Hypertension Social History Social History Social History: Lifelong nonsmoker. Rarely drinks alcohol. No drug use. Full code. He nominates Na Obrien to be the individual who would make medical decisions for him if he is unable. Smoking status: Never smoker Second hand tobacco smoke exposure: No Alcohol intake: current Alcohol use details: about 15 per year Substance use: never Substance u
[2024-01-07 23:01] VITALS: BP 148/81; PULSE 65; RESP 14; O2SAT 97
[2024-01-07] MEDS: AMOXICILLIN/CLAVULANATE K 875-125 MG TAB 1 TABLET PO (23:27)
[2024-01-07] MEDS: DOXYCYCLINE HYCLATE 100 MG TABLET PO (23:27)
[2024-01-08 00:07] VITALS: BP 155/76; PULSE 62; RESP 15; O2SAT 99
== END 2024-01-08 00:09 | disposition home or self-care (01) ==
PROVIDERS: Emergency Medicine; Emergency Provider Physician Assistant; PCP Student in an Organized Health Care Education/Training Program
DX: R91.8 Other nonspecific abnormal finding of lung field (principal); I48.91 Unspecified atrial fibrillation; I10 Essential (primary) hypertension; J45.909 Unspecified asthma, uncomplicated; J84.9 Interstitial pulmonary disease, unspecified; K21.9 Gastro-esophageal reflux disease without esophagitis; H35.30 Unspecified macular degeneration; Z87.442 Personal history of urinary calculi; Z86.718 Personal history of other venous thrombosis and embolism; Z79.01 Long term (current) use of anticoagulants
CPT/HCPCS: 36415; 71046; 71275; 80053; 85025; 85610; 85730; 86850; 86900; 86901; 99284; A9270; Q9967